=== PATIENT | male | born 2000 | race Caucasian/White ===

== ENCOUNTER 2023-12-07 23:16 | Emergency (ER) | payer OTHER, SELFPAY ==
[2023-12-07 23:21] VITALS: BP 140/76; PULSE 99; RESP 16; TEMP 37.2; BMI 21.3
--- NOTE | 2023-12-07 23:54 | ED_ITS ---
HPI - Abdominal Pain General Chief Complaint: Abdominal Pain Stated Complaint: ABD PAIN Time Seen by Provider: 12/07/23 23:24 Source: patient Mode of arrival: ambulance Limitations: no limitations History of Present Illness HPI narrative: Patient diagnosed with gallstones at [place] ED and has been receiving Nelson for pain. Has appointment with surgeon in [place] in 2 days. He was in [place] at his father's home and had increase in abdominal pain and called 911 - brought to [place] ED for evaluation. He received IV Fentanyl and IV Zofran in route. Related Data Home Medications Medication Instructions Recorded Confirmed ciprofloxacin HCl 500 mg tablet 500 mg PO Q12H 12/07/23 12/07/23 dextroamphetamine-amphetamine 15 7.5 mg PO BID 12/07/23 12/07/23 mg tablet metronidazole 500 mg tablet 500 mg PO Q12H 12/07/23 12/07/23 Previous Rx's Medication Instructions Recorded hyoscyamine sulfate 0.125 mg 0.125 mg PO Q6H PRN abdominal pain 12/08/23 sublingual tablet (Levsin/SL) #20 tabs ondansetron 4 mg disintegrating 4 mg PO Q6H PRN nausea and 12/08/23 tablet vomiting #20 tabs Allergies Allergy/AdvReac Type Severity Reaction Status Date / Time No Known Drug Allergies Allergy Verified 12/07/23 23:25 [facility] Social History Smoking status: Current every day smoker Exam Narrative Exam Narrative: Nurses notes and vital signs reviewed and patient is not hypoxic. afebrile General: Well-appearing and in no apparent distress. Skin: Warm, dry, no pallor noted. No rash. Eye: Pupils are equal, round and EOMI. No scleral icterus. Ears, Nose, Mouth, and Throat: Oral mucosa is moist Cardiovascular: borderline tachycardia. Respiratory: No accessory muscle use or respiratory distress. Lungs are clear to auscultation, no wheezing, rales or rhonchi Back: No CVA tenderness Musculoskeletal: normal ROM, no upper extremity edema/swelling GI: Abdomen is soft, non-distended. Normal bowel sounds. No masses appreciated. RLQ tenderness to palpation. No rebound, guarding, or rigidity noted. Neurological: A&O x4. No cranial nerve dysfunction observed. No truncal ataxia. Moves all extremities. Sensation intact. Psychiatric: Cooperative and interactive. Normal mood and affect. Constitutional Vital Signs, click to edit/add: Last Vital Signs Temp 97.9 F 12/08/23 01:35 Pulse 97 H 12/08/23 01:35 Resp 16 12/08/23 01:35 BP 140/70 12/08/23 01:35 Pulse Ox 98 12/08/23 01:35 O2 Del Method Room Air 12/08/23 01:35 Course Vital Signs Vital signs: Vital Signs Temperature 98.9 F 12/07/23 23:21 Pulse Rate 99 H 12/07/23 23:21 Respiratory Rate 16 12/07/23 23:21 Blood Pressure 140/76 12/07/23 23:21 Temperature 97.9 F 12/08/23 01:35 Pulse Rate 97 H 12/08/23 01:35 Respiratory Rate 16 12/08/23 01:35 Blood Pressure 140/70 12/08/23 01:35 Pulse Oximetry 98 12/08/23 01:35 Oxygen Delivery Method Room Air 12/08/23 01:35 MDM - Abdominal Pain MDM Narrative Medical decision making narrative: Peripheral IV was already established and route by EMS. He had received IV Zofran and IV fentanyl. His pain is decreased to 2 out of [address] scan of the abdomen pelvis were obtained with IV contrast. CBC, CMP, lipase - all negative except for K 2.9. CT scan does not reveal gallstones or biliary abnormality, colitis or bowel abno rmality, or other acutely worrisome findings. Appendix normal. Patient informed of results and discharged home. He can keep the appointment with the surgeon as scheduled. Prescribed Levsin and Zofran. Medical Records Attestation: I reviewed the patient's medical records. Medical records narrative: ED records from [facility] received and reviewed. The patient presented to the emergency department on November 14 November 17, 2023 complaining of low back pain which was attributed to him bending over to pick something up. It was believed to be a musculoskeletal etiology and he was treated accordingly. However he returned and on November 28, [address] scanning of the abdomen pelvis. CT did not reveal any gallstones. It did not reveal any renal or ureteral calculi or evidence of obstructive uropathy. He did however have mild wall thickening of ascending colon with some prominent perisplenic right lower quadrant mesenteric lymph nodes suggestive of inflammatory or infectious colitis. Dr. Johnson, the general surgeon was contacted and after reviewing the labs and CT result, it was decided the patient to be discharged home on Cipro and Flagyl, recommendation for clear liquid diet and then see Dr. Johnson in the office. Lab Data Attestation: I reviewed the patient's lab results. Labs: Lab Results 12/07/23 Range/Units 23:30 WBC 6.2 (4.0-11.0) 10^3/uL RBC 4.98 (4.70-6.10) 10^6/uL Hgb 14.3 (14.0-18.0) g/dL Hct 41.5 L (42.0-54.0) % MCV 83.3 (80.0-94.0) fL MCH 28.7 (25.9-34.0) pg MCHC 34.5 (29.9-35.2) g/dL RDW 12.2 (11.0-15.0) % Plt Count 276 (150-450) 10^3/uL MPV 10.2 (9.5-13.5) fL Neut % (Auto) 56.1 (43.0-75.0) % Lymph % (Auto) 30.5 (20.5-60.0) % Harper % (Auto) 7.6 (1.7-12.0) % Eos % (Auto) 4.9 (0.9-7.0) % Baso % (Auto) 0.6 (0.2-2.0) % Neut # (Auto) 3.5 (1.4-6.5) 10^3/uL Lymph # (Auto) 1.9 (1.2-3.8) 10^3/uL Harper # (Auto) 0.5 (0.3-0.8) 10^3/uL Eos # (Auto) 0.3 (0.0-0.7) 10^3/uL Baso # (Auto) 0.0 (0.0-0.1) 10^3/uL Abs Immat Gran (auto) 0.02 (0.00-0.03) 10^3/uL Imm/Tot Granulo (auto) 0.3 (0.0-0.5) % Sodium 139 (136-145) mmol/L Potassium 2.9 L* (3.5-5.1) mmol/L Chloride 103 (98-107) mmol/L Carbon Dioxide 23.3 (21.0-32.0) mmol/L Anion Gap 15.6 BUN 9.0 (7.0-18.0) mg/dL Creatinine 1.12 (0.70-1.30) mg/dL Est GFR ( Amer) >60 (>=60) Est GFR (Non-Af Amer) >60 (>=60) BUN/Creatinine Ratio 8.0 Glucose 101 (74-106) mg/dL Calcium 9.2 (8.5-10.1) mg/dL Total Bilirubin 0.7 (0.2-1.0) mg/dL AST 13 L (15-37) U/L ALT 15 L (16-63) U/L Alkaline Phosphatase 61 (46-116) U/L Total Protein 7.4 (6.4-8.2) g/dL Albumin 4.3 (3.4-5.0) g/dL Globulin 3.1 g/dL Albumin/Globulin Ratio 1.4 Lipase 16.0 (16.0-77.0) U/L Imaging Data CT scan - abdomen: Radiologist's impression: ITS Impressions Abdomen/Pelvis CT 12/08/23 00:00 IMPRESSION: 1. Heterogeneous appearance of both kidneys. Uncertain if this is due to technique and/or underlying small cysts or pyelonephritis. Correlate with urinalysis. 2. No hydronephrosis. No evidence of ureteral obstruction. Both ureters are images along the course and normal with left and right ureteral jets noted. 3. Normal appearance of bowel loops and appendix. Electronically authenticated by: SUNNY NULL Date: 12/08/2023 01:24 Discharge Plan Discharge Chief Complaint: Abdominal Pain Clinical Impression: Abdominal pain Patient Disposition: Home, Self-Care Time of Disposition Decision: 01:37 Prescriptions / Home Meds: New hyoscyamine sulfate [Levsin/SL] 0.125 mg tablet, sublingual 0.125 mg PO Q6H PRN (Reason: abdominal pain) Qty: 20 0RF ondansetron 4 mg tablet,disintegrating 4 mg PO Q6H PRN (Reason: nausea and vomiting) Qty: 20 0RF No Action ciprofloxacin HCl 500 mg tablet 500 mg PO Q12H dextroamphetamine-amphetamine 15 mg tablet 7.5 mg PO BID metronidazole 500 mg tablet 500 mg PO Q12H Instructions: Abdominal Pain (ED) Stand Alone Forms: Portal Instructions Referrals: GERARDO COLUNGA [Physician] - 1 week
--- NOTE | 2023-12-08 | CT_ITS ---
The [address] [address] Patient Name: LULÚ REAL MRN: [id number] date: 2000 Sex: M Assigned Patient Location: ER Current Patient Location: ER Accession/Order Number: [id number] Exam Date: 12/08/2023 00:20 Report Date: 12/08/2023 01:24 At the request of: RAMAN MORENO Procedure: CT abdomen pelvis w con CT OF THE ABDOMEN AND PELVIS WITH CONTRAST: 12/08/2023 12:20 AM EST CLINICAL HISTORY: Right lower quadrant abdominal pain. 23-year-old male. Acute epigastric pain. COMPARISONS: Report reviewed of CT abdomen and pelvis with and without from 09/04/2007. Images no longer available to review on archive. TECHNIQUE: Thin section axial CT images were obtained from the lung bases to the pubis symphysis. This CT exam was performed using one or more of the following dose reduction techniques: Automated exposure control, adjustment of the mA and/or kV according to patient size, or use of iterative reconstruction technique. Thin section coronal and sagittal images were reconstructed from the axial data set. All images were reviewed and interpreted. CONTRAST: Intravenous contrast was administered. Type and amount is documented at the local institution. FINDINGS: LUNG BASES: No consolidation or pleural fluid. LIVER: Mild to moderate diffuse hepatic steatosis. GALLBLADDER: Normal. BILIARY TREE: No ductal dilatation. PANCREAS: Normal. SPLEEN: Normal. ADRENALS: Normal. KIDNEYS: Heterogeneous enhancement of kidneys which may be related to slight delayed imaging. There is contrast within both intrarenal collecting systems and ureters with no hydronephrosis. Could be small cyst within the anterior midpole left kidney. There may be other scattered small cyst versus pyelonephritis causing heterogeneous appearance. Correlate with urinalysis. URINARY BLADDER: Grossly unremarkable. PELVIC STRUCTURES: Unremarkable. BOWEL: No evidence of obstruction, gross mass, or inflammatory change. There is no significant diverticulosis. There is no evidence of diverticulitis. APPENDIX: No active disease with normal appendix. LYMPH NODES: No pathologically enlarged lymph nodes identified. PERITONEUM: No intraperitoneal free air. No free intraperitoneal fluid. MESENTERY: Unremarkable. RETROPERITONEUM: The retroperitoneum is unremarkable. AORTA: Normal in caliber. BODY WALL: No body wall mass. OSSEOUS STRUCTURES: Normal osseous structures and joints for age. CT/CT abdomen pelvis w con IMPRESSION: 1. Heterogeneous appearance of both kidneys. Uncertain if this is due to technique and/or underlying small cysts or pyelonephritis. Correlate with urinalysis. 2. No hydronephrosis. No evidence of ureteral obstruction. Both ureters are images along the course and normal with left and right ureteral jets noted. 3. Normal appearance of bowel loops and appendix. Electronically authenticated by: SUNNY NULL Date: 12/08/2023 01:24
[2023-12-08] MEDS: 0.9 % SODIUM CHLORIDE 1,000 ML 999 ML IV (00:08)
[2023-12-08 00:26] LABS: Basophils Percent Auto 0.6 % (0.2-2.0); Eosinophils Absolute Auto 0.3 10^3/uL (0.0-0.7); Eosinophils Percent Auto 4.9 % (0.9-7.0); Hematocrit 41.5 % (42.0-54.0); Hemoglobin 14.3 g/dL (14.0-18.0); Immature Granulocytes Abs Auto 0.02 10^3/uL (0.00-0.03); Immature Granulocytes Pct Auto 0.3 % (0.0-0.5); Lymphocytes Absolute Auto 1.9 10^3/uL (1.2-3.8); Lymphocytes Percent Auto 30.5 % (20.5-60.0); Mean Corpuscular HGB Conc 34.5 g/dL (29.9-35.2); Mean Corpuscular Hemoglobin 28.7 pg (25.9-34.0); Mean Corpuscular Volume 83.3 fL (80.0-94.0); Mean Platelet Volume 10.2 fL (9.5-13.5); Monocytes Absolute Auto 0.5 10^3/uL (0.3-0.8); Monocytes Percent Auto 7.6 % (1.7-12.0); Neutrophils Absolute Auto 3.5 10^3/uL (1.4-6.5); Neutrophils Percent Auto 56.1 % (43.0-75.0); Platelet Count 276 10^3/uL (150-450); Red Blood Count 4.98 10^6/uL (4.70-6.10); Red Cell Distribution Width 12.2 % (11.0-15.0); White Blood Count 6.2 10^3/uL (4.0-11.0)
[2023-12-08 00:49] LABS: Alanine Aminotransferase 15 U/L (16-63); Albumin Globulin Ratio 1.4; Albumin Level 4.3 g/dL (3.4-5.0); Alkaline Phosphatase 61 U/L (46-116); Anion Gap 15.6; Aspartate Amino Transferase 13 U/L (15-37); Bilirubin Total 0.7 mg/dL (0.2-1.0); Calcium 9.2 mg/dL (8.5-10.1); Carbon Dioxide 23.3 mmol/L (21.0-32.0); Chloride 103 mmol/L (98-107); Estimated GFR (African America >60 (>=60); Estimated GFR (Non-African Ame >60 (>=60); Globulin 3.1 g/dL; Glucose 101 mg/dL (74-106); Sodium 139 mmol/L (136-145); Total Protein 7.4 g/dL (6.4-8.2)
[2023-12-08 00:52] LABS: Potassium 2.9 mmol/L (3.5-5.1)
[2023-12-08] MEDS: POTASSIUM CHLORIDE 10 MEQ ER TABLET 40 MEQ PO (00:58)
[2023-12-08 01:35] VITALS: BP 140/70; PULSE 97; RESP 16; TEMP 36.6; O2SAT 98
== END 2023-12-08 01:57 | disposition home or self-care (01) ==
PROVIDERS: Emergency Provider Emergency Medicine
DX: R10.9 Unspecified abdominal pain (principal); F17.200 Nicotine dependence, unspecified, uncomplicated
CPT/HCPCS: 36415; 74177; 80053; 83690; 85025; 99285; Q9967

== ENCOUNTER 2023-12-12 11:10 | Emergency (ER) | payer OTHER, SELFPAY ==
[2023-12-12 11:16] VITALS: BP 130/90; PULSE 101; RESP 16; TEMP 36.2; O2SAT 99; BMI 19.9
--- OUTSIDE RECORDS SUMMARY | 2023-12-12 11:17 | XMS_ITS | CCD ---
Author Name Unknown Address [address] [place] [address] Organization [facility] Care Team Providers Care Supervisor [employer] Name Role Phone LAM LUL L Unavailable Unavailable LAM, LUL L Unavailable Unavailable RUBIO RIVERA Unavailable Unavailable VIRGIL, DR ROMAN Shanks Attending Unavailosman HERMAN, DR ROMAN Shanks Consulting Unavailosman HERMAN, DR ROMAN Shanks Admitting Unavailosman COLUNGA, DR CARRILLO Primary Care Unavailable NOEL WONG Consulting Unavailable BELLE PETER Consulting Unavailable PAY, DR ANTON Attending Unavailable CRISTINE, DR CARRILLO Primary Care Unavailable TIFFANIE, DR CAMARGO Consulting Unavailable PAY, DR ANTON Admitting Unavailable DUONG, DR GRAJEDA Consulting Unavailable BELLE PETER Consulting Unavailable Lauren Greene Unavailable NO PCP, NO PCP Primary Care Unavailable GIOVANNY HERNANDEZ Attending Unavailable NO PCP, NO PCP Primary Care Unavailable JEREMIAH DAVIES Attending Unavailable NO PCP, NO PCP Primary Care Unavailable CATALINO OVERTON Attending Unavailab CATALINO Chase Attending Unavailab CATALINO Chase Referring Unavailab le NO PCP, NO PCP Primary Care Unavailable CATALINO OVERTON Attending Unavailab CATALINO Chase Referring Unavailab le NO PCP, NO PCP Primary Care Unavailable Allergies Allergy Classification Reported Allergen(s) Allergy Type Date of Onset Reaction(s) Facility (1 source) Cat/Feline Product Derivatives Drug allergy (disorder) [facility] Medications Current Medications Medication Drug Class(es) Dates Sig (Normalized) Sig (Original) Albuterol (2 sources) beta2-Adrenergic Agonist Albuterol Sulfate Active Faviola Allergy (2 sources) Faviola Allergy Active ibuprofen 800 mg oral tablet (2 sources) Nonsteroidal Anti-inflammatory Drug take 1 tablet by mouth every eight hours at mealtime as needed Ibuprofen 800 MG 1 tablet with food or milk as needed Orally every 8 hrs Active Problems Active Problems Problem Classification Problem Date Documented Date Episodic/Chronic E Codes: Natural/environment (1 source) Other and unspecified overexertion or strenuous movements or postures, initial encounter; Translations: [OTH AND UNS OVREXRT/STRN MVMT/POS INT] Onset: 08-18-2022 Episodic E Codes: Struck by; against (1 source) Striking against or struck by other objects, initial encounter; Translations: [STRIKING AGNST/STRUCK OTH OBJ INIT] Onset: 07-10-2022 Episodic Noninfectious gastroenteritis (1 source) Noninfective gastroenteritis and colitis, unspecified; Translations: [Noninfective gastroenteritis and colitis, unspecified] Onset: 11-28-2023 Episodic Other connective tissue disease (3 sources) Pain in right foot; Translations: [PAIN IN RIGHT FOOT] Onset: 06-30-2022 Episodic Other non-traumatic joint disorders (6 sources) Pain in right ankle and joints of right foot; Translations: [PAIN IN RIGHT ANKLE] Onset: 08-15-2022 Episodic Spondylosis; intervertebral disc disorders; other back problems (3 sources) Muscle spasm of back; Translations: [Backache] Onset: 11-14-2023 Episodic Sprains and strains (4 sources) Sprain of unspecified ligament of right ankle, initial encounter; Translations: [Strain of muscle, fascia and tendon of lower back, subsequent encounter] Onset: 08-18-2022 Episodic Superficial injury; contusion (1 source) Contusion of right foot, initial encounter; Translations: [CONTUSION RIGHT FOOT INITIAL ENC] Onset: 07-10-2022 Episodic Past or Other Problems Problem Classification Problem Date Documented Da te Episodic/Chronic Allergic reactions (1 source) Unspecified contact dermatitis, unspecified cause; Translations: [Unspecified contact dermatitis, unspecified cause] Onset: 04-29-2017 Episodic Results Test Name Value Interpretation Reference Range Facil ity CBC AND AUTO DIFFon 11-28-19 ABSOLUTE BASOPHIL 0.0 X10E9/L Normal 0.0-0.2 [facility] Comment on above: Performed By: #### C EMILY [facility], 1986-02 #### [facility] ([id number]) [address] [place] [address] 12033 ABSOLUTE NEUTROPHIL 8.8 X10E9/L High 1.5-6.6 [facility] Comment on above: Performed By: #### Naomi DIAZ [facility], 1986-02 #### [facility] ([id number]) [address] [place] [address] 95649 Basophils/100 WBC (Bld) 0.3 % Normal [facility] Comment on above: Performed By: #### Naomi DIAZ [facility], 1986-02 #### [facility] ([id number]) [address] [place] [address] 53956 Eosinophils (Bld) [#/Vol] 0.2 10*3/uL Normal 0.0-0.4 [facility] Comment on above: Performed By: #### Naomi DIAZ [facility], 1986-02 #### [facility] ([id number]) [address] [place] [address] 27693 Eosinophils/100 WBC (Bld) 1.6 % Normal [facility] Comment on above: Performed By: #### Naomi DIAZ [facility], 1986-02 #### [facility] ([id number]) [address] [place] [address] 65877 Erythrocyte distribution width (RBC) [Ratio] 13.7 % Normal 11.5-15.0 [facility] Comment on above: Performed By: #### Naomi DIAZ [facility], 1986-02 #### [facility] ([id number]) [address] [place] [address] 18565 Hematocrit (Bld) [Volume fraction] 45.1 % Normal 39-49 [facility] Comment on above: Performed By: #### Naomi DIAZ [facility], 1986-02 #### [facility] ([id number]) [address] [place] [address] 98321 Hemoglobin (Bld) [Mass/Vol] 15.6 g/dL Normal 13.0-17.0 [facility] Comment on above: Performed By: #### Naomi DIAZ [facility], 1986-02 #### [facility] ([id number]) [address] [place] [address] 83823 Lymphocytes (Bld) [#/Vol] 1.4 10*3/uL Normal 1.0-3.5 [facility] Comment on above: Performed By: #### Naomi DIAZ [facility], 1986-02 #### [facility] ([id number]) [address] [place] [address] 03955 Lymphocytes/100 WBC (Bld) 12.4 % Normal [facility] Comment on above: Performed By: #### Naomi DIAZ [facility], 1986-02 #### [facility] ([id number]) [address] [place] [address] 96126 MCH (RBC) [Entitic mass] 29.3 pg Normal 27-34 [facility] Comment on above: Performed By: #### Naomi DIAZ [facility], 1986-02 #### [facility] ([id number]) [address] [place] [address] 64078 MCHC (RBC) [Mass/Vol] 34.5 g/dL Normal 32-36 [facility] Comment on above: Performed By: #### Naomi DIAZ [facility], 1986-02 #### [facility] ([id number]) [address] [place] [address] 85207 MCV (RBC) [Entitic vol] 85 fL Normal 80-100 [facility] Comment on above: Performed By: #### Naomi DIAZ [facility], 1986-02 #### [facility] ([id number]) [address] [place] [address] 37994 Monocytes (Bld) [#/Vol] 0.9 10*3/uL Normal 0-0.9 [facility] Comment on above: Performed By: #### Naomi DIAZ [facility], 1986[facility]02 #### [facility] ([id number]) [address] [place] [address] 26366 Monocytes/100 WBC (Bld) 7.6 % Normal [facility] Comment on above: Performed By: #### Naomi DIAZ [facility], 1986[facility]02 #### [facility] ([id number]) [address] [place] [address] 11977 Neutrophils/100 WBC (Bld) 78.1 % Normal [facility] Comment on above: Performed By: #### Naomi DIAZ [facility], 1986-[facility] #### [facility] ([id number]) [address] [place] [address] 08998 Platelet mean volume (Bld) [Entitic vol] 8.2 fL Normal 7-12 [facility] Comment on above: Performed By: #### Naomi DIAZ [facility], 1986-[facility] #### [facility] ([id number]) [address] [place] [address] 63604 Platelets (Bld) [#/Vol] 326 10*3/uL Normal 150-450 [facility] Comment on above: Performed By: #### Naomi DIAZ [facility], 1986-[facility] #### [facility] ([id number]) [address] [place] [address] 74199 RBC COUNT 5.31 X10E12/L Normal 4.10-5.70 [facility] Comment on above: Performed By: #### Naomi DIAZ [facility], 1986-02 #### [facility] ([id number]) [address] [place] [address] 14926 WBC (Bld) [#/Vol] 11.3 10*3/uL High 4.0-11.0 [facility] Comment on above: Performed By: #### Naomi DIAZ [facility], 1986-02 #### [facility] ([id number]) [address] [place] [address] 98244 COMPREHENSIVE METABOLIC PANE Alex 11-28-2023 Albumin [Mass/Vol] 5.0 g/dL Normal 3.2-5.3 [facility] Comment on above: Performed By: #### C [facility]ILY [facility], 1986-02 #### [facility] ([id number]) [address] [place] [address] 25767 ALP [Catalytic activity/Vol] 71 U/L Normal 39-130 [facility] Comment on above: Performed By: #### Naomi DIAZ [facility], 1986-02 #### [facility] ([id number]) [address] [place] [address] 52659 ALT [Catalytic activity/Vol] 13 U/L Normal 0-40 [facility] Comment on above: Performed By: #### Naomi DIAZ [facility], 1986-[facility] #### [facility] ([id number]) [address] [place] [address] 56862 Anion gap [Moles/Vol] 8 mmol/L Normal 5-15 [facility] Comment on above: Performed By: #### Naomi DIAZ [facility], 1986-[facility] #### [facility] ([id number]) [address] [place] [address] 73591 AST [Catalytic activity/Vol] 19 U/L Normal 0-41 [facility] Comment on above: Performed By: #### C [facility], 1986-[facility] #### [facility] ([id number]) [address] [place] [address] 78080 Bilirubin [Mass/Vol] 0.9 mg/dL Normal 0.3-1.2 [facility] Comment on above: Performed By: #### Naomi DIAZ [facility], 1986-02 #### [facility] ([id number]) [address] [place] [address] 04638 Calcium [Mass/Vol] 9.6 mg/dL Normal 8.5-10.5 [facility] Comment on above: Performed By: #### C [facility], 1986-[facility] #### [facility] ([id number]) [address] [place] [address] 72289 Chloride [Moles/Vol] 101 mmol/L Normal 98-109 [facility] Comment on above: Performed By: #### Naomi DIAZ [facility], 1986-[facility] #### [facility] ([id number]) [address] [place] [address] 31145 CO2 [Moles/Vol] 27 mmol/L Normal 22-32 [facility] Comment on above: Performed By: #### Naomi DIAZ [facility], 1986-[facility] #### [facility] ([id number]) [address] [place] [address] 06548 Creatinine [Mass/Vol] 1.15 mg/dL Normal 0.70-1.20 [facility] Comment on above: Result Comment: METH OD TRACEABLE TO IDMS STANDARD Performed By: #### Naomi DIAZ [facility], 1986-02 #### [facility] ([id number]) [address] [place] [address] 56918 eGFR (CKD-EPI) NON-RACE DEPENDENT >90 Normal >59 [facility] Comment on above: Result Comment: Reported eGFR is based on the CKD-EPI 2020 equation that does not use a race coefficient. Performed By: #### C [facility], 1986-02 #### [facility] ([id number]) [address] [place] [address] 00659 Glucose [Mass/Vol] 100 mg/dL High 65-99 [facility] Comment on above: Performed By: #### Naomi DIAZ [facility], 1986-02 #### [facility] ([id number]) [address] [place] [address] 49979 Potassium [Moles/Vol] 4.3 mmol/L Normal 3.5-5.0 [facility] Comment on above: Performed By: #### C [facility], 1986[facility] #### [facility] ([id number]) [address] [place] [address] 51834 Protein [Mass/Vol] 8.4 g/dL High 6.0-8.0 [facility] Comment on above: Performed By: #### Naomi DIAZ [facility], 1986-02 #### [facility] ([id number]) [address] [place] [address] 12228 Sodium [Moles/Vol] 136 mmol/L Normal 134-146 [facility] Comment on above: Performed By: #### Naomi DIAZ [facility], 1986-[facility] #### [facility] ([id number]) [address] [place] [address] 12512 Urea nitrogen [Mass/Vol] 21 mg/dL Normal 5-23 [facility] Comment on above: Performed By: #### Naomi DIAZ [facility], 1986-[facility] #### [facility] ([id number]) [address] [place] [address] 47515 CRP [Mass/Vol]on 11-28-2023 C REACTIVE PROTEIN 0.6 mg/dL Normal 0.000-0.744 [facility] Comment on above: Performed By: #### Naomi DIAZ [facility], 1986-[facility] #### [facility] ([id number]) [address] [place] [address] ABDOMEN AND PELVIS WO CON Ton 11-28-2023 CT ABDOMEN AND PELVIS WO CONT CT ABDOMEN AND PELVIS WO CONT CT ABDOMEN AND PELVIS WO CONT CLINICAL HISTORY: Abdominal pain radiating to the right flank COMPARISON: 09/03/2007 TECHNIQUE: * CT of the abdomen and pelvis was performed without intravenous contrast. Coronal and sagittal reformatted images were generated and reviewed. Automated exposure control was utilized. * All CT scans at this facility use dose modulation, iterative reconstruction, and/or weight based dosing when appropriate to reduce radiation dose to as low as reasonably achievable. FINDINGS: Evaluation of the solid viscera and vascular structures is compromised without the use of IV contrast. Visualized portions of lung parenchyma appear unremarkable. No pericardial or pleural effusions. No intra-abdominal free air or free fluid. The liver, gallbladder, spleen, pancreas, and adrenal glands appear unremarkable. No renal/ureteral calculi. Nonspecific mildly increased attenuation of the renal pyramids bilaterally. No evidence of obstructive uropathy. No pelvic free fluid. The prostate appears nonenlarged. Small bowel is nondilated. Mildly prominent wall of the descending colon with prominent right lower quadrant pericolonic lymph nodes which could be seen with an inflammatory or infectious colitis. Clinical correlation is recommended. No abdominal or pelvic lymphadenopathy. Nonaneurysmal abdominal aorta. The IVC is right-sided. Multilevel degenerative changes of the visualized thoracolumbar spine. 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 There is a 1.6 cm sclerotic lesion right iliac bone, likely enostosis. IMPRESSION: * No renal/ureteral calculi or evidence of obstructive uropathy. * Nonspecific mildly increased attenuation of the renal pelvis bilaterally, which can be seen in the setting of dehydration or increased caffeine intake. Recommend clinical correlation. * There is mild wall thickening of ascending colon with some prominent perisplenic right lower quadrant mesenteric lymph nodes which could be seen with inflammatory or infectious colitis. Clinical correlation is recommended. Approved by Resident: Stephen Varela MD on 11/28/2023 1:45 PM ICatalino MD have personally reviewed the image(s) and agree with and/or edited the report Finalized by Catalino Knapp MD on 11/28/2023 1:58 PM Normal [facility] URN MACROSCOPIC NURon 2023 BILIRUBIN ANITRA Negative Normal NEG [facility] Comment on above: Performed By: #### N UM #### [facility] ([id number]) [address] [place] [address] 39154 BLOOD/HGB ANITRA MODERATE Abnormal NEG [facility] Comment on above: Performed By: #### N UM #### [facility] ([id number]) [address] [place] [address] 69427 GLUCOSE ANITRA Negative Normal NEG [facility] Comment on above: Performed By: #### N UM #### [facility] ([id number]) [address] [place] [address] 51684 KETONES ANITRA Negative Normal NEG [facility] Comment on above: Performed By: #### N UM #### [facility] ([id number]) [address] [place] [address] 38073 LEUKOCYTE ESTERASE ANITRA Negative Normal NEG [facility] Comment on above: Performed By: #### N UM #### [facility] ([id number]) [address] [place] [address] 08286 NITRITE ANITRA Negative Normal NEG [facility] Comment on above: Performed By: #### N UM #### [facility] ([id number]) [address] [place] [address] 50474 PH ANITRA 6.0 Normal 5.0-8.5 [facility] Comment on above: Performed By: #### N UM #### [facility] ([id number]) [address] [place] [address] 75800 PROTEIN ANITRA Negative Normal NEG [facility] Comment on above: Performed By: #### N UM #### [facility] ([id number]) [address] [place] [address] 34950 SPECIFIC GRAVITY ANITRA 1.025 Normal 1.003-1.035 [facility] Comment on above: Performed By: #### N UM #### [facility] ([id number]) [address] [place] [address] 01585 UROBILINOGEN ANITRA 0.2 eu/dL Normal <1.1 [facility] Comment on above: Performed By: #### N UM #### [facility] ([id number]) [address] [place] [address] 42788 XR SPINE LUMBAR 2 OR 3 VWSon 11-28-2023 XR SPINE LUMBAR 2 OR 3 VWS XR SPINE LUMBAR 2 OR 3 VWS *ADDENDUM*Upon comparison to prior CT of the abdomen and pelvis from 09/03/2007. 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 Finalized by Catalino Valentino on 11/28/2023 12:08 PM Normal [facility] XR ANKLE RT MIN 3 VIEWSon XR ANKLE RT MIN 3 VIEWS IMAGES REVIEWED: XR ANKLE RT MIN 3 VIEWS COMPARISON: 06/30/2022. CLINICAL INDICATION: Pain FINDINGS/IMPRESSION: 1. No evidence of acute osseous abnormality of the right ankle. 2. Prominent lateral ankle soft tissue swelling. Electronically authenticated by: BELLE PETER Date: 2022-08-15 20:02 Normal [facility] XR FOOT RT MIN 3 VIEWSon XR FOOT RT MIN 3 VIEWS IMAGES REVIEWED: XR FOOT RT MIN 3 VIEWS COMPARISON: None available. CLINICAL INDICATION: Injury, pain. FINDINGS/IMPRESSION: No evidence of acute osseous abnormality of the right foot. Electronically authenticated by: BELLE PETER Date: 2022-06-30 20:09 Normal [facility] ED Provider Noteon 7 HIM IP Note OR Folder Seamer Normal [facility] Encounters Encounter Date Encounter Type Care Provider Facility Start: 11-28-2023 End: 11-29-2023 Emergency department patient visit CATALINO [facility] Start: 11-28-2023 End: 11-29-2023 Emergency department patient visit CATALINO [facility] Start: 11-28-2023 End: 11-28-2023 Emergency department patient visit NO PCP NO PCP [facility] Start: 11-17-2023 End: 11-17-2023 Emergency department patient visit NO PCP NO PCP [facility] Start: 11-14-2023 End: 11-14-2023 Emergency department patient visit NO PCP NO PCP [facility] Start: 09-02-2022 End: 09-02-2022 ambulatory Lauren Greene Other [facility] Other Start: 09-02-2022 Office outpatient visit 15 minutes Lauren Greene [facility] Start: 08-21-2022 End: 08-21-2022 ambulatory Lauren Ramona Other [facility] Other Start: 08-21-2022 Office outpatient ne w 45 minutes Lauren Greene [facility] Start: 08-15-2022 End: 08-15-[address] DESEAN PAZ Facility:[facility] Start: 06-30-2022 End: 06-30-[address] ROMAN HERMAN Facility:[facility] Start: 04-29-2017 End: 04-29-2017 Emergency department patient visit [facility] Payers Date Payer Category Payer Unknown [id number] 2.16.84 [id number] 2002 Unknown [id number] 2.16.84 [id number] 2002 Unknown [id number] 2.16.8 [id number] 2002 Unknown [id number] 2.16.8 [id number] 2002 Unknown [id number] 2.16.8 [id number] 2002 Unknown [id number] 2.16.8 [id number] 2002 Unknown [id number] 2.16.8 [id number] 1959 Unknown [id number] Social History Date Type Detail Facility Sex Assigned At [facility] Other Evaluation note 09-02-2022 Note Date & Type Note Facility 09-02-2022 Evaluation note Encounter Date Diagnosis Assessment Notes Aug, Acute right ankle pain (ICD-10 - M25.571) 15 Nov, 2022 Sprain of right ankle, unspecified ligament, initial encounter (ICD-10 - S93.401A) Patient instructed to start working on motion out of the CAM walker boot. He may also transition into a regular shoe. He may return to work tomorrow. [facility] Other Evaluation note 08-21-2022 Note Date & Type Note Facility 08-21-2022 Evaluation note Encounter Date Diagnosis Assessment Notes Aug, Acute right ankle pain (ICD-10 - M25.571) Aug, Sprain of right ankle, unspecified ligament, initial encounter (ICD-10 - S93.401A) X-rays were reviewed with the patient today, along with a physical exam. Today, we will give the patient a short cam walking boot. We will have him continue to take ibuprofen as needed, ice, evaluate, and exercise the ankle/foot as much as possible. We will f/u with the patient in 2 weeks. [facility] Other History general Narrative - Reported Note Date & Type Note Facility History general Narrative - Reported Type Medical History allergies Surgical History skin graft [facility] Other Summary Purpose Family History No Family History Records FoundNo Family History Records FoundNo Family History Records Found Advance Directives No Advanced Directives Records FoundNo Advanced Directives Records FoundNo Advanced Directives Records Found Additional Source Comments (unrecognized sect ion and content) No Status Records FoundNo Status Records FoundNo Status Records Found INFORMATION SOURCE (unrecogn ized section and content) DATE CREATED AUTHOR 04/14/2018 Martha Mahmood [facility] DATE CREATED AUTHOR AUTHOR'S ORGANIZ ATION 08/18/2022 [facility] DATE CREATED AUTHOR AUTHOR'S ORGANIZ ATION 11/30/2023 [facility] REASON FOR VISIT (unrecogniz ed section and content) Right Ankle PainRecheck Righ t Ankle FOR RECORDS PERTAINING TO PATIENTS WHO ARE OR HAVE BEEN ENROLLED IN A CHEMICAL DEPENDENCY/SUBSTANCEABUSE PROGRAM, SOME INFORMATION MAY BE OMITTED. This clinical summary was aggregated from multiple sources. Caution should be exercised in using it in the provision of clinical care. This summary normalizes information from multiple sources, and as a consequence, information in this document may materially change the coding, format and clinical context of patient data. In addition, data may be omitted in some cases. CLINICAL DECISIONS SHOULD BE BASED ON THE PRIMARY CLINICAL RECORDS. [facility] [employer] [facility] provides no warranty or guarantee of the accuracy or completeness of information in this document.
[2023-12-12 12:00] LABS: Basophils Percent Auto 0.7 % (0.2-2.0); Eosinophils Absolute Auto 0.2 10^3/uL (0.0-0.7); Hematocrit 43.7 % (42.0-54.0); Hemoglobin 15.1 g/dL (14.0-18.0); Immature Granulocytes Abs Auto 0.01 10^3/uL (0.00-0.03); Immature Granulocytes Pct Auto 0.2 % (0.0-0.5); Lymphocytes Percent Auto 23.2 % (20.5-60.0); Mean Corpuscular HGB Conc 34.6 g/dL (29.9-35.2); Mean Corpuscular Hemoglobin 28.9 pg (25.9-34.0); Mean Corpuscular Volume 83.6 fL (80.0-94.0); Mean Platelet Volume 9.7 fL (9.5-13.5); Monocytes Absolute Auto 0.3 10^3/uL (0.3-0.8); Monocytes Percent Auto 7.9 % (1.7-12.0); Neutrophils Absolute Auto 2.6 10^3/uL (1.4-6.5); Platelet Count 259 10^3/uL (150-450); Red Blood Count 5.23 10^6/uL (4.70-6.10); Red Cell Distribution Width 12.4 % (11.0-15.0); White Blood Count 4.2 10^3/uL (4.0-11.0)
[2023-12-12 12:31] LABS: Alanine Aminotransferase 17 U/L (16-63); Albumin Globulin Ratio 1.3; Albumin Level 4.3 g/dL (3.4-5.0); Alkaline Phosphatase 57 U/L (46-116); Aspartate Amino Transferase 12 U/L (15-37); BUN Creatinine Ratio 9.4; Bilirubin Total 0.9 mg/dL (0.2-1.0); Calcium 9.4 mg/dL (8.5-10.1); Carbon Dioxide 22.6 mmol/L (21.0-32.0); Chloride 103 mmol/L (98-107); Estimated GFR (African America >60 (>=60); Estimated GFR (Non-African Ame >60 (>=60); Globulin 3.2 g/dL; Glucose 91 mg/dL (74-106); Potassium 3.6 mmol/L (3.5-5.1); Sodium 141 mmol/L (136-145); Total Protein 7.5 g/dL (6.4-8.2)
[2023-12-12] MEDS: METHYLPREDNISOLONE SOD SUCC PF 125 MG/2 ML VIAL 250 MG IVP (12:45)
--- NOTE | 2023-12-12 12:48 | ED_ITS ---
HPI - Abdominal Pain General Chief Complaint: Abdominal Pain Stated Complaint: PAIN ALL OVER Time Seen by Provider: 12/12/23 11:21 Source: patient Mode of arrival: walk-in Limitations: no limitations History of Present Illness HPI narrative: This patient is here with his father complaining of continuing ongoing pain. I reviewed his previous ER records from this ER, the previous ER physician here also reviewed his records from [place] including his lab and CT findings. Despite taking Cipro and Flagyl his symptoms have not gotten any better. His primary complaint seems to be diffuse abdominal pain loose bowel movements. He is lost approximately 20 pounds in 1 month according to his father. He was vies to follow-up with a surgeon in [facility], it sounds like they reached out but then they chose to see a deputy grand jury instead. The deputy grand jury cannot and has not seen them, will not be able to see them for another month so he has not had any follow-up because he chose to see the deputy grand jury instead of the surgeon. He has not had any travel history. There is no suggestion of enteric pathogens or bad water intake. In fact he submitted a stool specimen 2 days ago for PCR of the stool and it was completely normal and I did review his those results myself. He has never seen blood in his stool. Of interest several family members on his mother side have inflammatory bowel d isease. There is no strong cancer history although the father suggested that there is some on his family as well. He has not had any vomiting. He denies alcohol intake. He has no history of liver disease. He has had 2 CAT scans previously nothing suggestive of gallbladder disease and his pain is not in the right upper quadrant. At no time is he run a fever. Related Data Home Medications Medication Instructions Recorded Confirmed dextroamphetamine-amphetamine 15 7.5 mg PO BID 12/07/23 12/07/23 mg tablet Previous Rx's Medication Instructions Recorded ondansetron 4 mg disintegrating 4 mg PO Q6H PRN nausea and 12/08/23 tablet vomiting #20 tabs Allergies Allergy/AdvReac Type Severity Reaction Status Date / Time No Known Drug Allergies Allergy Verified 12/12/23 11:16 PFS PFS Social History Smoking status: Current every day smoker Exam Narrative Exam Narrative: Awake alert does not appear ill appears thin slightly pale weight is 59.4 kg. Vital signs are stable with mild increase in pulse however he is afebrile. HEENT shows no pallor or conjunctival icterus or conjunctivitis. Abdomen is flat soft supple no surgical incisions. Normal bowel sounds. No guarding rebound rigidity or peritoneal findings. No hepatomegaly. No tenderness in McBurney's point. Hernandez sign is negative. His back has no lesions rash or exanthem. Skin slightly pale. No petechiae purpura rash or exanthem. Cognition and mentation are normal he seems generally and sincerely worried and concerned about his health. Constitutional Vital Signs, click to edit/add: Last Vital Signs Temp 97.1 F L 12/12/23 11:16 Pulse 101 H 12/12/23 11:16 Resp 16 12/12/23 11:16 BP 130/90 12/12/23 11:16 Pulse Ox 99 12/12/23 11:16 O2 Del Method Room Air 12/12/23 11:16 Course Vital Signs Vital signs: Vital Signs Temperature 97.1 F L 12/12/23 11:16 Pulse Rate 101 H 12/12/23 11:16 Respiratory Rate 16 12/12/23 11:16 Blood Pressure 130/90 12/12/23 11:16 Pulse Oximetry 99 12/12/23 11:16 Oxygen Delivery Method Room Air 12/12/23 11:16 Temperature 97.1 F L 12/12/23 11:16 Pulse Rate 101 H 12/12/23 11:16 Respiratory Rate 16 12/12/23 11:16 Blood Pressure 130/90 12/12/23 11:16 Pulse Oximetry 99 12/12/23 11:16 Oxygen Delivery Method Room Air 12/12/23 11:16 MDM - Abdominal Pain MDM Narrative Medical decision making narrative: Patient's laboratory tests are essentially normal with normal CBC hemoglobin kidney function and liver function tests are essentially normal. In totality, with numerous CTs laboratory testing all being normal and a strong family history of inflammatory bowel disease it clearly will be prudent for him to get endoscopy. He initiated that process but now it has been delayed as noted above. He can follow-up with our surgeon on-call or refollow-up with the surgeon in [place]. He will be given a copy of all his lab test. Empirically I am going to treat him with a burst of steroids to see if he has a clinical improvement. Lab Data Labs: Lab Results 12/12/23 Range/Units 11:52 WBC 4.2 (4.0-11.0) 10^3/uL RBC 5.23 (4.70-6.10) 10^6/uL Hgb 15.1 (14.0-18.0) g/dL Hct 43.7 (42.0-54.0) % MCV 83.6 (80.0-94.0) fL MCH 28.9 (25.9-34.0) pg MCHC 34.6 (29.9-35.2) g/dL RDW 12.4 (11.0-15.0) % Plt Count 259 (150-450) 10^3/uL MPV 9.7 (9.5-13.5) fL Neut % (Auto) 63.0 (43.0-75.0) % Lymph % (Auto) 23.2 (20.5-60.0) % [place] % (Auto) 7.9 (1.7-12.0) % Eos % (Auto) 5.0 (0.9-7.0) % Baso % (Auto) 0.7 (0.2-2.0) % Neut # (Auto) 2.6 (1.4-6.5) 10^3/uL Lymph # (Auto) 1.0 L (1.2-3.8) 10^3/uL [place] # (Auto) 0.3 (0.3-0.8) 10^3/uL Eos # (Auto) 0.2 (0.0-0.7) 10^3/uL Baso # (Auto) 0.0 (0.0-0.1) 10^3/uL Abs Immat Gran (auto) 0.01 (0.00-0.03) 10^3/uL Imm/Tot Granulo (auto) 0.2 (0.0-0.5) % Sodium 141 (136-145) mmol/L Potassium 3.6 (3.5-5.1) mmol/L Chloride 103 (98-107) mmol/L Carbon Dioxide 22.6 (21.0-32.0) mmol/L Anion Gap 19.0 BUN 12.0 (7.0-18.0) mg/dL Creatinine 1.27 (0.70-1.30) mg/dL Est GFR ( Amer) >60 (>=60) Est GFR (Non-Af Amer) >60 (>=60) BUN/Creatinine Ratio 9.4 Glucose 91 (74-106) mg/dL Lactate 1.0 (0.4-2.0) mmol/L Calcium 9.4 (8.5-10.1) mg/dL Total Bilirubin 0.9 (0.2-1.0) mg/dL AST 12 L (15-37) U/L ALT 17 (16-63) U/L Alkaline Phosphatase 57 (46-116) U/L Total Protein 7.5 (6.4-8.2) g/dL Albumin 4.3 (3.4-5.0) g/dL Globulin 3.2 g/dL Albumin/Globulin Ratio 1.3 Lipase 13.0 L (16.0-77.0) U/L Discharge Plan Discharge Chief Complaint: Abdominal Pain Clinical Impression: Abdominal pain Patient Disposition: Home, Self-Care Time of Disposition Decision: 12:52 Prescriptions / Home Meds: No Action dextroamphetamine-amphetamine 15 mg tablet 7.5 mg PO BID ondansetron 4 mg tablet,disintegrating 4 mg PO Q6H PRN (Reason: nausea and vomiting) Qty: 20 0RF Additional Instructions: Follow-up with the surgeon in [place] or Dr. Fregoso here in [place]/prednisone burst for 9 days Stand Alone Forms: Portal Instructions Referrals: Physician,Non-Staff, MD [Primary Care Provider] - 1 week
[2023-12-12 13:23] LABS: Bilirubin Urine NEGATIVE (NEGATIVE); Blood Urine NEGATIVE (NEGATIVE); Clarity Urine CLEAR (CLEAR); Color Urine YELLOW (YELLOW); Glucose Urine UA NEGATIVE (NEGATIVE); Ketones Urine 15 mg/dL (NEGATIVE); Leukocyte Esterase Urine NEGATIVE (NEGATIVE); Nitrite Urine NEGATIVE (NEGATIVE); Protein Urine NEGATIVE (NEG/TRACE); Specific Gravity Urine 1.015 (1.005-1.025); Urobilinogen Urine 0.2 EU/dL (0.2-1.0)
[2023-12-12 13:27] LABS: Urine Microscopic Indicated NO
== END 2023-12-12 13:01 | disposition home or self-care (01) ==
PROVIDERS: Emergency Provider Emergency Medicine Emergency Medical Services
DX: R10.9 Unspecified abdominal pain (principal); F17.200 Nicotine dependence, unspecified, uncomplicated
CPT/HCPCS: 36415; 80053; 81003; 83605; 83690; 85025; 96374; 99284; J2930

== ENCOUNTER 2024-01-05 14:29 | Outpatient (OUT) | payer OTHER, SELFPAY ==
[2024-01-05 15:24] LABS: C Reactive Protein <0.50 mg/dL (<=0.50)
[2024-01-06 05:07] LABS: HIV Ab/p24 Ag Screen Non Reactive (Non Reactive)
[2024-01-06 15:09] LABS: Deamidated Gliadin Abs, IgA 3 units (0-19); Deamidated Gliadin Abs, IgG 2 units (0-19); Endomysial Antibody IgA Negative (Negative); Immunoglobulin A, Qn, Serum 111 mg/dL (90-386); t-Transglutaminase (tTG) IgA <2 U/mL (0-3); t-Transglutaminase (tTG) IgG <2 U/mL (0-5)
[2024-01-10 21:07] LABS: Calprotectin, Fecal 74 ug/g (0-120)
== END 2024-01-05 14:30 | disposition home or self-care (01) ==
LOC: LAB 14:32
DX: R19.7 Diarrhea, unspecified (principal); R10.9 Unspecified abdominal pain
CPT/HCPCS: 36415; 82784; 83993; 84443; 86140; 86231; 86258; 86364; 87389

== ENCOUNTER 2024-09-19 12:46 | Emergency (ER) | payer OTHER, SELFPAY ==
[2024-09-19 12:51] VITALS: BP 136/81; PULSE 100; TEMP 36.7; O2SAT 99; BMI 25.1
--- OUTSIDE RECORDS SUMMARY | 2024-09-19 13:00 | XMS_ITS | CCD ---
Author Organization [facility] Care Team Providers Care Exhaust Emissions Automotive Technician Name Role Phone LUL LAM Unavailable Unavailable LUL LAM Concha Unavailable Unavailable RUBIO RIVERA Unavailable Unavailable VIRGIL, DR ROMAN Shanks Attending Unavailabl e VIRGIL, DR ROMAN Shanks Consulting Unavailabl e VIRGIL, DR ROMAN Shanks Admitting Unavailabl e CRISTINE, DR CARRILLO Primary Care Unavailable NOEL WONG Consulting Unavailable BELLE PETER Consulting Unavailable PAY, DR ANTON Attending Unavailable CRISTINE, DR CARRILLO Primary Care Unavailable TIFFANIE, DR CAMARGO Consulting Unavailable PAY, DR ANTON Admitting Unavailable DUONG, DR GRAJEDA Consulting Unavailable BELLE PETER Consulting Unavailable Lauren Greene Unavailable No Pcp, No Pcp Primary Care Provider Unavailabl e NO PCP, NO PCP Primary Care Unavailable GIOVANNY HERNANDEZ Attending Unavailable NO PCP, NO PCP Primary Care Unavailable JEREMIAH DAVIES Attending Unavailable NO PCP, NO PCP Primary Care Unavailable CATALINO OVERTON Attending Unavaila CATALINO Gastelum Attending Unavaila CATALINO Gastelum Referring Unavaila ble NO PCP, NO PCP Primary Care Unavailable CATALINO OVERTON Attending Unavaila CATALINO Gastelum Referring Unavaila ble NO PCP, NO PCP Primary Care Unavailable MENDEL CROW Referring Unavailable NO PCP, NO PCP Primary Care Unavailable Luis Alberts MD Primary Care Provider NO FAMILY, PHYSICIAN Primary Care Provider Unava ilBRIA Merchant Emergency Provider [phone] Asaad, MD Imad Attending Provider Asaad, Imad Attending Unavailable Asaad, Imad Admitting Unavailable NO FAMILY, PHYSICIAN Primary Care Unavailable Shabnam Silverio Admitting Unavailable NO FAMILY, PHYSICIAN Primary Care Unavailable Shabnam Silverio Attending Unavailable LEXUSFABRIZIO MikeID M Attending Unavailable MENDEL CROW Referring Unavailable LEXUS, MUHAMID M Primary Care Unavailable LEXUS, MUHAMID M Attending Unavailable LEXUS, MUHAMID M Referring Unavailable LEXUS, MUHAMID M Primary Care Unavailable MENDEL CROW Attending Unavailable NO PCP, NO PCP Primary Care Unavailable LEXUS, MUHAMID M Attending Unavailable LEXUS, MUHAMID M Referring Unavailable LEXUS, MUHAMID M Primary Care Unavailable Allergies Allergy Classification Reported Allergen(s) Allergy Type Date of Onset Reaction(s) Facility (1 source) Cat/Feline Product Derivatives Drug allergy (disorder) [facility] Medications Current Medications Medication Drug Class(es) Dates Sig (Normalized) Sig (Original) acetaminophen 325 mg oral tablet (1 source) Start: 01-19-2024 take 1 tablet by mouth every six hours Acetaminophen (Pain Relief (Acetaminophen)) 325 mg tablet Active 325 MG PO Every 6 hours January 19, 2024 12:00am [id number] 200 actuat albuterol 0.09 mg/actuat metered dose inhaler (3 sources) beta2-Adrenergic Agonist Start: 02-02-2024 Albuterol Sulfate Active 2 INH INHALATION As Directed February 02, 2024 12:00am Albuterol Sulfat e Active Faviola Allergy (2 sources) Faviola Allergy Active amphetamine aspartate 3.75 mg / amphetamine sulfate 3.75 mg / dextroamphetamine saccharate 3.75 mg / dextroamphetamine sulfate 3.75 mg oral tablet (3 sources) Central Nervous System Stimulant Start: 2023 take 15 mg by mouth twice daily Dextroamphetamine-Am phetamine Active 15 MG PO Twice daily December 15, 2023 1:00am ciprofloxacin 500 mg oral tablet (1 source) Quinolone Antimicrobial Start: 2023 End: 2023 take 1 tablet by mouth in the morning, then take 1 tablet by mouth at bedtime ciprofloxacin HCl (CIPRO) 500 mg tablet Take 1 tablet (500 mg total) by mouth in the morning and 1 tablet (500 mg total) before bedtime. Do all this for 10 days. 20 tablet 0 11/28/2023 12/09/2023 Active fexofenadine hydrochloride 180 mg oral tablet (1 source) Histamine-1 Receptor Antagonist Start: 2023 take 1 tablet by mouth once daily Fexofenadine (Faviola Allergy) 180 mg tablet Active 180 MG PO Daily January 19, 2024 12:00am ibuprofen 800 mg oral tablet (2 sources) Nonsteroidal Anti-inflammatory Drug take 1 tablet by mouth every eight hours at mealtime as needed Ibuprofen 800 MG 1 tablet with food or milk as needed Orally every 8 hrs Active metroNIDAZOLE 500 mg oral tablet (1 source) Nitroimidazole Antimicrobial Start: 2023 End: 2023 take 1 tablet by mouth in the morning, then take 1 tablet by mouth at bedtime metroNIDAZOLE (FLAGYL) 500 mg tablet Take 1 tablet (500 mg total) by mouth in the morning and 1 tablet (500 mg total) before bedtime. Do all this for 10 days. 20 tablet 0 11/28/2023 12/09/2023 Active Multivitamin (Daily Multi-Vitamin) tablet (1 source) Start: 2023 take 1 tablet by mouth once daily Multivitamin (Daily Multi-Vitamin) tablet Active 1 TAB PO Daily January 19, 2024 12:00am ondansetron 4 mg disintegrating oral tablet (2 sources) Serotonin-3 Receptor Antagonist Start: 2023 ondansetron ODT (ZOFRAN ODT) 4 mg disintegrating tablet Dissolve 1 tablet (4 mg total) on tongue daily as needed for nausea or vomiting. 0 12/08/2023 Active Sod Picosulf-Mag Ox-Citric Ac (1 source) Start: 2023 take 1 dose by mouth once daily Sod Picosulf-Mag Ox-Citric Ac (Clenpiq) 10 mg-3.5 gram- 12 gram/175 mL solution Active 175 ML PO Daily 350 0 December 28, 2023 12:00am take first dose at 3PM evening before colonoscopy; 2nd dose at 9pm the night before colonoscopy Completed/Discontinued Medications Medication Drug Class(es) Dates Sig (Normalized) Sig (Original) dicyclomine hydrochloride 10 mg oral capsule (1 source) Anticholinergic Start: 12-15-2023 End: 12-28-2023 take 10 mg by mouth three times daily Dicyclomine Discontinued 10 MG PO Three times daily December 15, 2023 1:00am December 28, 2023 1:18pm hyoscyamine sulfate 0.125 mg sublingual tablet (3 sources) Start: 12-08-2023 End: 12-28-2023 take 0.125 mg by mouth once daily Hyoscyamine Sulfate Discontinued 0.125 MG PO Daily December 15, 2023 1:00am December 28, 2023 1:19pm ketorolac tromethamine 10 mg oral tablet (1 source) Nonsteroidal Anti-inflammatory Drug, Cyclooxygenase Inhibitor Start: 11-14-2023 End: 12-09-2023 take 1 tablet by mouth every six hours as needed for pain ketorolac (TORADOL) 10 mg tablet Take 1 tablet (10 mg total) by mouth every 6 (six) hours as needed for pain. 20 tablet 0 11/14/2023 12/09/2023 Discontinued (Therapy completed) Problems Active Problems Problem Classification Problem Date Documented Da te Episodic/Chronic Abdominal pain (3 sources) Abdominal pain; Translations: [Unspecified abdominal pain] Onset: 03-24-2024 12-23-2023 Episodic E Codes: Natural/environment (1 source) Other and unspecified overexertion or strenuous movements or postures, initial encounter; Translations: [OTH AND UNS OVREXRT/STRN MVMT/POS INT] Onset: 08-18-2022 Episodic E Codes: Struck by; against (1 source) Striking against or struck by other objects, initial encounter; Translations: [STRIKING AGNST/STRUCK OTH OBJ INIT] Onset: 07-10-2022 Episodic Other connective tissue disease (3 sources) Pain in right foot; Translations: [PAIN IN RIGHT FOOT] Onset: 06-30-2022 Episodic Other gastrointestinal disorders (2 sources) Diarrhea; Translations: [Diarrhea, unspecified] 12-09-2023 Episodic Other non-traumatic joint disorders (6 sources) Pain in right ankle and joints of right foot; Translations: [PAIN IN RIGHT ANKLE] Onset: 08-15-2022 Episodic Other non-traumatic joint disorders (1 source) Ankle pain Onset: 05-04-2024 Episodic Other skin disorders (1 source) Acne vulgaris; Translations: [Acne vulgaris] Onset: 05-04-2024 Episodic Regional enteritis and ulcerative colitis (1 source) Ulcerative colitis Onset: 12-09-2023 Chronic Residual codes; unclassified (1 source) FH: Ulcerative colitis; Translations: [Family history of other diseases of the digestive system] 12-09-2023 Episodic Spondylosis; intervertebral disc disorders; other back problems (2 sources) Degeneration of lumbar intervertebral disc; Translations: [Other intervertebral disc degeneration, lumbar region] 01-16-2024 Chronic Spondylosis; intervertebral disc disorders; other back problems [...] RIGHT FOOT INITIAL ENC] Onset: 07-10-2022 Episodic Unclassified (1 source) Establish Care Onset: 01-15-2024 Past or Other Problems Problem Classification Problem Date Documented Da te Episodic/Chronic Administrative/social admission (3 sources) Patient encounter status; Translations: [Persons encountering health services in other specified circumstances] Onset: 01-15-2024 12-09-2023 Episodic Allergic reactions (1 source) Unspecified contact dermatitis, unspecified cause; Translations: [Unspecified contact dermatitis, unspecified cause] Onset: 04-29-2017 Episodic Epilepsy; convulsions (2 sources) Unspecified convulsions; Translations: [Other convulsions] Onset: 05-23-2019 05-23-2019 Episodic Mood disorders (2 sources) Mood disorders Onset: 03-25-2021 Resolved: 01-15-2024 03-25-2021 Noninfectious gastroenteritis (6 sources) Colitis; Translations: [Noninfective gastroenteritis and colitis, unspecified] Onset: 11-28-2023 12-09-2023 Episodic Other gastrointestinal disorders (2 sources) Diarrhea, unspecified; Translations: [Diarrhea, unspecified] Onset: 12-09-2023 Episodic Residual codes; unclassified (1 source) Family history of other diseases of the digestive system; Translations: [Family history of other diseases of the digestive system] Onset: 12-09-2023 Episodic Results Test Name Value Interpretation Reference Range Facility C-Reactive Proteinon 024 CRP [Mass/Vol] mg/L Normal 0.0-0.5 [facility] Comment on above: Performed By: #### H IV SCREEN, CELIAC #### [facility] , #### TSH3, CRP #### [address] Celiacon 02-02-2024 Deamidated Gliadin Abs, IgA 4 Normal 0-19 [facility] Comment on above: Result Comment: Nega tive 0 - 19 Weak Positive 20 - 30 Moderate to Strong Positive >30 Performed By: #### H IV SCREEN, CELIAC #### [facility] , #### TSH3, CRP #### [address] Deamidated Gliadin Abs, IgG 3 Normal 0-19 [facility] Comment on above: Result Comment: Nega tive 0 - 19 Weak Positive 20 - 30 Moderate to Strong Positive >30 Performed By: #### H IV SCREEN, CELIAC #### [facility] , #### TSH3, CRP #### [address] Endomysial Antibody IgA Negative Normal Negative [facility] Comment on above: Performed By: #### H IV SCREEN, CELIAC #### [facility] , #### TSH3, CRP #### [address] Immunoglobulin A, Qn, Serum 110 mg/dL Normal 90-386 [facility] Comment on above: Result Comment: Perf ormed at: - [facility] [address] [id number] [employer] Plant Supervisor: Sal Pepe PhD, Phone: [phone] Performed By: #### H IV SCREEN, CELIAC #### [facility] , #### TSH3, CRP #### [facility] [address] T-Transglutaminase (tTG) IgA <2 Normal 0-3 [facility] Comment on above: Result Comment: Nega tive 0 - 3 Weak Positive 4 - 10 Positive >10 Tissue Transglutaminase (tTG) has been identified as the endomysial antigen. Studies have demonstr- ated that endomysial IgA antibodies have over 99% specificity for gluten sensitive enteropathy. Performed By: #### H IV SCREEN, CELIAC #### [facility] , #### TSH3, CRP #### [address] T-Transglutaminase (tTG) IgG <2 Normal 0-5 [facility] Comment on above: Result Comment: Nega tive 0 - 5 Weak Positive 6 - 9 Positive >9 Performed By: #### H IV SCREEN, CELIAC #### [facility] , #### TSH3, CRP #### [address] HIV 1/O/2 Antigen/Antibodyon 02-02-2024 HIV Screen 4th Generation Non-Reactive Normal Non Reactive [facility] Comment on above: Result Comment: HIV Negative HIV-1/HIV-2 antibodies and HIV-1 p24 antigen were NOT detected. There is no laboratory evidence of HIV infection. Performed at: [facility] [id number] [employer] Supervisor: Sal Pepe PhD, Phone: [phone] PERFORMED BY: [place] [address] PATHOLOGIST CHIEF METEOROLOGIST LEIGHTON JOHN M.D. Performed By: #### H IV SCREEN, CELIAC #### [facility] , #### TSH3, CRP #### [address] Thyroid Stimulating Hormoneo n 02-02-2024 TSH Qn 1.71 m[IU]/L Normal 0.45-5.33 [facility] Comment on above: Result Comment: PERF ORMED BY: [place] [address] PATHOLOGIST CHIEF METEOROLOGIST LEIGHTON JOHN M.D. Performed By: #### H IV SCREEN, CELIAC #### [facility] , #### TSH3, CRP #### [facility] [address] [place] [address] Alanine aminotransferase [En zymatic activity/volume] in Serum or PlasmaOrdered By: Shabnam Silverio on 12-15-2023 ALT [Catalytic activity/Vol] 8 U/L 7-52 [facility] Albumin [Mass/volume] in Ser um or Plasma by Bromocresol green (BCG) dye binding methoOrdered By: Shabnam Silverio on 12-15-2023 Albumin BCG dye [Mass/Vol] 4.6 g/dL 3.5-5.7 [facility] Alkaline phosphatase [Enzyma tic activity/volume] in Serum or PlasmaOrdered By: Shabnam Silverio on 12-15-2023 ALP [Catalytic activity/Vol] 41 U/L 34-104 [facility] Amphetamine Screen Ql (U)Ord ered By: Shabnam Silverio on 12-15-2023 Amphetamines Ql (U) Negative Negative [facility] Aspartate aminotransferase [ Enzymatic activity/volume] in Serum or PlasmaOrdered By: Shabnam Silverio on 12-15-2023 AST [Catalytic activity/Vol] 11 U/L 13-39 [facility] Barbiturates [Presence] in U rine by Screen methodOrdered By: Shabnam Silverio on 12-15-2023 Barbiturates Screen Ql (U) Negative Negative [facility] Basophils Auto (Bld) [#/Vol] Ordered By: Shabnam Silverio on 12-15-2023 Basophils (Bld) [#/Vol] 0.0 10*3/uL 0.0-0.2 [facility] Basophils/100 WBC Auto (Bld) Ordered By: Shabnam Silverio on 12-15-2023 Basophils/100 WBC (Bld) 0.1 % . F [facility] Benzodiazepines Screen Ql (U )Ordered By: Shabnam Silverio on 12-15-2023 Benzodiazepines Ql (U) Negative Negative [facility] Benzoylecgonine [Presence] i n Urine by Screen methodOrdered By: Shabnam Silverio on 12-15-2023 Benzoylecgonine Screen Ql (U) Negative Negative [facility] Bilirubin Test strip Ql (U)O rdered By: Shabnam Silverio on 12-15-2023 Bilirubin Ql (U) Negative Negative [facility] Bilirubin.total [Mass/volume ] in Serum or PlasmaOrdered By: Shabnam Silverio on 12-15-2023 Bilirubin [Mass/Vol] 0.6 mg/dL 0.3-1.0 [facility] CT abdomen pelvis w conon CT abdomen pelvis w con [facility] [place] [address] [place] [address] CT Scan Report Signed Patient: Gulshan Mcpherson MR#: [id number] 03 : 2000 Acct:[id number] Age/Sex: 23 / M ADM Date: 12/15/23 Loc: ER Room: Type: [facility] ER Attending Dr: Copies to: Shabnam Silverio APRN Ordering Provider: Shabnam Silverio APRN Date of Service: 12/15/23 CT/CT abdomen pelvis w con: Abdominal Pain CT Abdomen and Pelvis withcontrast TECHNIQUE: Axial imaging with 2-D reconstruction.90 cc of Isovue-300. The CT exam was performed using one or more the following dose reduction techniques: Automated exposure control, adjustment of the MA and/or Kv according to patient size, or use of the iterative reconstruction technique. COMPARISON: None History: Right-sided back pain. Right abdominal pain. LIMITATIONS: None LOWER THORAX Unremarkable LIVER: Unremarkable GALLBLADDER: No gallbladder abnormality identified. BILE DUCTS: No dilatation SPLEEN: Unremarkable PANCREAS: Unremarkable ADRENAL GLANDS: Unremarkable KIDNEYS:Unremarkable AORTA: No abdominal aortic aneurysm identified. RETROPERITONEUM: No significant retroperitoneal abnormalities identified. MESENTERY:Unremarkab le SMALL BOWEL: The small bowel loops are nondistended. APPENDIX: The appendix is normal. COLON: Unremarkable URINARY BLADDER: Urinary bladder wall thickening. Consider underdistention versus cystitis. REPRODUCTIVE SYSTEM: Reproductive structures are unremarkable. PNEUMOPERITONEUM: None PERITONEAL FLUID:None BONY STRUCTURES: Unremarkable ABDOMINAL WALL: Unremarkable CT/CT abdomen pelvis w con IMPRESSION: normal appendix. Urinary bladder wall thickening. Consider underdistention versus cystitis. No obstructive uropathy. Impression dictated by: Desean Norman M.D.12/15/2023 7:32 PM Dictation Location: [place] [address] Transcribed By: [facility] 12/15/231931 Dictated By: Desean Norman DO 12/15/231928 Signed By: 12/15/231931 Normal [facility] Calcium [Mass/volume] in Ser um or PlasmaOrdered By: Shabnam Silverio on 12-15-2023 Calcium [Mass/Vol] 9.4 mg/dL 8.6-10.3 [facility] Cannabinoids [Presence] in U rine by Screen methodOrdered By: Shabnam Silverio on 12-15-2023 Cannabinoids Screen Ql (U) Positive Negative [facility] Comment on above: These are unconfirme d results and should not be used for legal purposes. Drug Cut-Off Concentration: AMPH 1000 ng/mL YVAN 200 ng/mL JOHNNIE 200 ng/mL COCM 300 ng/mL OP 300 ng/mL PCP 25 ng/mL THC 20 ng/mL Carbon dioxide, total [Moles /volume] in Serum or PlasmaOrdered By: Shabnam Silverio on 12-15-2023 CO2 [Moles/Vol] 22.6 mmol/L 21.0-31.0 [facility] Chloride [Moles/volume] in S sushma or PlasmaOrdered By: Shabnam Silverio on 12-15-2023 Chloride [Moles/Vol] 106 mmol/L 98-107 [facility] Color Auto (U)Ordered By: Michael Silverio on 12-15-2023 Color (U) Yellow Yellow [facility] Complete Blood Count Auto Di ffon 12-15-2023 Basophils (Bld) [#/Vol] 0.0 10*3/uL Normal 0.0-0.2 [facility] Comment on above: Result Comment: PERF ORMED BY: [facility] [address] [place] [address] PATHOLOGIST CHIEF METEOROLOGIST LEIGHTON JOHN M.D. Performed By: #### L IPASE, CMP, CBC #### [address] Basophils/100 WBC (Bld) 0.1 % Normal . [facility] Comment on above: Performed By: #### L IPASE, CMP, CBC #### [address] Eosinophils (Bld) [#/Vol] 0.0 10*3/uL Normal 0.0-0.45 [facility] Comment on above: Performed By: #### L IPASE, CMP, CBC #### [address] Eosinophils/100 WBC (Bld) 0.0 % Normal . [facility] Comment on above: Performed By: #### L IPASE, CMP, CBC #### [address] Erythrocyte distribution width (RBC) [Ratio] 13.6 % Normal 12.0-14.8 [facility] Comment on above: Performed By: #### L IPASE, CMP, CBC #### [address] Hematocrit (Bld) [Volume fraction] 41.0 % Normal 38.8-50.0 [facility] Comment on above: Performed By: #### L IPASE, CMP, CBC #### [address] Hemoglobin (Bld) [Mass/Vol] 13.8 g/dL Normal 13.0-17.0 [facility] Comment on above: Performed By: #### L IPASE, CMP, CBC #### [address] Lymphocytes (Bld) [#/Vol] 0.4 10*3/uL Low 1.00-4.8 [facility] Comment on above: Performed By: #### L IPASE, CMP, CBC #### [address] Lymphocytes/100 WBC (Bld) 9.0 % Normal . [facility] Comment on above: Performed By: #### L IPASE, CMP, CBC #### [address] MCH (RBC) [Entitic mass] 28.5 pg Normal 27.5-35.2 [facility] Comment on above: Performed By: #### L IPASE, CMP, CBC #### [address] MCV (RBC) [Entitic vol] 84.6 fL Normal 83.5-101 [facility] Comment on above: Performed By: #### L IPASE, CMP, CBC #### [address] Mean Corpuscular HGB Conc 33.7 g/dL Normal 32.5-35.6 [facility] Comment on above: Performed By: #### L IPASE, CMP, CBC #### [address] Monocytes (Bld) [#/Vol] 0.1 10*3/uL Normal 0.0-0.8 [facility] Comment on above: Performed By: #### L IPASE, CMP, CBC #### [address] Monocytes/100 WBC (Bld) 19.10 % Normal 0.00-20.00 [facility] Comment on above: Performed By: #### L IPASE, CMP, CBC #### [address] Monocytes/100 WBC (Bld) 2.3 % Normal . [facility] Comment on above: Performed By: #### L IPASE, CMP, CBC #### [address] Neutrophils (Bld) [#/Vol] 4.2 10*3/uL Normal 1.8-7.7 [facility] Comment on above: Performed By: #### L IPASE, CMP, CBC #### [address] Neutrophils/100 WBC (Bld) 88.6 % Normal . [facility] Comment on above: Performed By: #### L IPASE, CMP, CBC #### [facility] [address] NRBC% 0.0 /100{WBC} Normal 0-0.5 [facility] Comment on above: Performed By: #### L IPASE, CMP, CBC #### [address] Platelet mean volume (Bld) [Entitic vol] 8.4 fL Normal 6.6-10.1 [facility] Comment on above: Performed By: #### L IPASE, CMP, CBC #### [address] Platelets (Bld) [#/Vol] 253 10*3/uL Normal 150-450 [facility] Comment on above: Performed By: #### L IPASE, CMP, CBC #### [address] RBC (Bld) [#/Vol] 4.85 10*6/uL Normal 3.90-5.60 [facility] Comment on above: Performed By: #### L IPASE, CMP, CBC #### [address] WBC (Bld) [#/Vol] 4.8 10*3/uL Normal 4.1-10.5 [facility] Comment on above: Performed By: #### L IPASE, CMP, CBC #### [address] Comprehensive Metabolic Pane alex 12-15-2023 Albumin [Mass/Vol] 4.6 g/dL Normal 3.5-5.7 [facility] Comment on above: Performed By: #### L IPASE, CMP, CBC #### [address] Albumin/Globulin [Mass ratio] 1.8 {ratio} Normal [facility] Comment on above: Performed By: #### L IPASE, CMP, CBC #### [facility] [address] ALP [Catalytic activity/Vol] 41 U/L Normal 34-104 [facility] Comment on above: Performed By: #### L IPASE, CMP, CBC #### [facility] [address] [place] [address] [place] ALT [Catalytic activity/Vol] 8 U/L Normal 7-52 [facility] Comment on above: Performed By: #### L IPASE, CMP, CBC #### [facility] [address] Anion gap [Moles/Vol] 16.5 mmol/L High 6.0-15.0 [facility] Comment on above: Performed By: #### L IPASE, CMP, CBC #### [address] AST [Catalytic activity/Vol] 11 U/L Low 13-39 [facility] Comment on above: Performed By: #### L IPASE, CMP, CBC #### [place] [address] [place] Bilirubin [Mass/Vol] 0.6 mg/dL Normal 0.3-1.0 [facility] Comment on above: Performed By: #### L IPASE, CMP, CBC #### [facility] [address] [place] [address] [place] Calcium [Mass/Vol] 9.4 mg/dL Normal 8.6-10.3 [facility] Comment on above: Performed By: #### L IPASE, CMP, CBC #### [facility] [address] [place] [address] [place] Chloride [Moles/Vol] 106 mmol/L Normal 98-107 [facility] Comment on above: Performed By: #### L IPASE, CMP, CBC #### [facility] [address] [place] [address] [place] CO2 [Moles/Vol] 22.6 mmol/L Normal 21.0-31.0 [facility] [facility] Comment on above: Performed By: #### L IPASE, CMP, CBC #### [address] Creatinine [Mass/Vol] 0.73 mg/dL Normal 0.70-1.30 [facility] Comment on above: Performed By: #### L IPASE, CMP, CBC #### [address] Creatinine Clr Calc Pharmacy 139.01 Normal [facility] Comment on above: Performed By: #### L IPASE, CMP, CBC #### [facility] [address] GFR/1.73 sq M.predicted MDRD (S/P/Bld) [Vol rate/Area] mL/min/{1.73_m2} Normal [facility] Comment on above: Performed By: #### L IPASE, CMP, CBC #### [address] Globulin (S) [Mass/Vol] 2.5 g/dL Normal T he [facility] Comment on above: Performed By: #### L IPASE, CMP, CBC #### [address] Glucose [Mass/Vol] 113 mg/dL High 70-100 [facility] Comment on above: Result Comment: [place] Glucose Reference Range is dependent on time and content of last meal. Glucose of more than 200 mg/dL in a nonstressed, ambulatory subject supports the diagnosis of Diabetes Mellitus. ADA recommended reference range Performed By: #### L IPASE, CMP, CBC #### [address] Potassium [Moles/Vol] 4.1 mmol/L Normal 3.5-5.1 [facility] Comment on above: Performed By: #### L IPASE, CMP, CBC #### [address] Protein [Mass/Vol] 7.1 g/dL Normal 6.4-8.9 [facility] Comment on above: Performed By: #### L IPASE, CMP, CBC #### [address] Sodium [Moles/Vol] 141 mmol/L Normal 136-145 [facility] Comment on above: Performed By: #### L IPASE, CMP, CBC #### [address] Urea nitrogen [Mass/Vol] 15 mg/dL Normal 7-25 [facility] Comment on above: Performed By: #### L IPASE, CMP, CBC #### [address] Creatinine [Mass/volume] in Serum or PlasmaOrdered By: Shabnam Silverio on 12-15-2023 Creatinine [Mass/Vol] 0.73 mg/dL 0.70-1.30 [facility] Drug Screen,Urineon 12-15-19 24 Amphetamine Screen,Urine Negative Normal Negative [facility] Comment on above: Performed By: #### U A, URDS #### [address] Barbiturate Screen,Urine Negative Normal Negative [facility] Comment on above: Performed By: #### U A, URDS #### [address] Benzodiazepines Screen,Urine Negative Normal Negative [facility] Comment on above: Performed By: #### U A, URDS #### [address] Cannabinoid Screen,Urine Positive High Negative [facility] Comment on above: Result Comment: Thes e are unconfirmed results and should not be used for legal purposes. Drug Cut-Off Concentration: AMPH 1000 ng/mL YVAN 200 ng/mL JOHNNIE 200 ng/mL COCM 300 ng/mL OP 300 ng/mL PCP 25 ng/mL THC 20 ng/mL PERFORMED BY: [place] [address] PATHOLOGIST CHIEF METEOROLOGIST LEIGHTON JOHN M.D. Performed By: #### U A, URDS #### [facility] [address] Cocaine Screen,Urine Negative Normal Negative [facility] Comment on above: Performed By: #### U A, URDS #### [facility] [address] Opiate Screen,Urine Negative Normal Negative [facility] Comment on above: Performed By: #### U A, URDS #### [facility] [address] Phencyclidine Screen,Urine Negative Normal Negative [facility] Comment on above: Performed By: #### U A, URDS #### [facility] [address] Eosinophils Auto (Bld) [#/Vo l]Ordered By: Shabnam Silverio on 12-15-2023 Eosinophils (Bld) [#/Vol] 0.0 10*3/uL 0.0-0.45 [facility] Eosinophils/100 WBC Auto (Bl d)Ordered By: Shabnam Silverio on 12-15-2023 Eosinophils/100 WBC (Bld) 0.0 % . [facility] Erythrocyte distribution wid th Auto (RBC) [Ratio]Ordered By: Shabnam Silverio on 12-15-2023 Erythrocyte distribution width (RBC) [Ratio] 13.6 % 12.0-14.8 [facility] Globulin Calc (S) [Mass/Vol] Ordered By: Shabnam Silverio on 12-15-2023 Globulin (S) [Mass/Vol] 2.5 g/dL [facility] Glucose [Mass/volume] in Ser um or PlasmaOrdered By: Shabnam Silverio on 12-15-2023 Glucose [Mass/Vol] 113 mg/dL 70-100 [facility] Comment on above: ADA recommended refe rence rangeRandom Glucose Reference Range is dependent on time and content of last meal. Glucose of more than 200 mg/dL in a nonstressed, ambulatory subject supports the diagnosis of Diabetes Mellitus. Hematocrit Auto (Bld) [Volum e fraction]Ordered By: Shabnam Silverio on 12-15-2023 Hematocrit (Bld) [Volume fraction] 41.0 % 38.8-50.0 [facility] Hemoglobin [Mass/volume] in BloodOrdered By: Shabnam Silverio on 12-15-2023 Hemoglobin (Bld) [Mass/Vol] 13.8 g/dL 13.0-17.0 [facility] Ketones Auto test strip (U) [Mass/Vol]Ordered By: [facility]23 Ketones (U) [Mass/Vol] Trace Negative Fi [facility] Leukocytes [#/volume] correc pj for nucleated erythrocytes in Blood by Automated counOrdered By: Shabnamgeri Silverio on 12-15-2023 WBC corrected for nucl RBC Auto (Bld) [#/Vol] 4.8 10*3/uL 4.1-10.5 [facility] Lipaseon 12-15-2023 Lipase [Catalytic activity/Vol] 6.0 U/L Low 11.0-82.0 [facility] Comment on above: Result Comment: PERF ORMED BY: [place] [address] PATHOLOGIST CHIEF METEOROLOGIST LEIGHTON JOHN M.D. Performed By: #### L IPASE, CMP, CBC #### [address] Lipase [Enzymatic activity/v olume] in Serum or PlasmaOrdered By: Shabnam Silverio on 12-15-2023 Lipase [Catalytic activity/Vol] 6.0 U/L 11.0-82.0 [facility] Lymphocytes Auto (Bld) [#/Vo l]Ordered By: Shabnam Silverio on 12-15-2023 Lymphocytes (Bld) [#/Vol] 0.4 10*3/uL 1.00-4.8 [facility] Lymphocytes/100 WBC Auto (Bl d)Ordered By: Shabnam [facility] on 12-15-2023 Lymphocytes/100 WBC (Bld) 9.0 % . [facility] MCH Auto (RBC) [Entitic mass ]Ordered By: Shabnam Silverio on 12-15-2023 MCH (RBC) [Entitic mass] 28.5 pg 27.5-35.2 [facility] MCHC Auto (RBC) [Mass/Vol]Or dered By: Shabnam Silverio on 12-15-2023 MCHC (RBC) [Mass/Vol] 33.7 g/dL 32.5-35.6 Fir [facility] MCV Auto (RBC) [Entitic vol] Ordered By: Shabnam Silverio on 12-15-2023 MCV (RBC) [Entitic vol] 84.6 fL 83.5-101 F [facility] Monocyte distribution width [Entitic volume] in Blood by AutomatedOrdered By: Shabnam Silverio on 12-15-2023 Monocyte distribution width Auto (Bld) [Entitic vol] 19.10 % 0.00-20.00 [facility] Monocytes Auto (Bld) [#/Vol] Ordered By: Shabnam Silverio on 12-15-2023 Monocytes (Bld) [#/Vol] 0.1 10*3/uL 0.0-0.8 [facility] Monocytes/100 WBC Auto (Bld) Ordered By: Shabnam Silverio on 12-15-2023 Monocytes/100 WBC (Bld) 2.3 % . F [facility] Neutrophils Auto (Bld) [#/Vo l]Ordered By: Shabnam Silverio on 12-15-2023 Neutrophils (Bld) [#/Vol] 4.2 10*3/uL 1.8-7.7 [facility] Neutrophils/100 WBC Auto (Bl d)Ordered By: Shabnam Silverio on 12-15-2023 Neutrophils/100 WBC (Bld) 88.6 % . [facility] Nitrite Test strip Ql (U)Ord ered By: Shabnam Silverio on 12-15-2023 Nitrite Ql (U) Negative Negative [facility] No Panel InformationOrdered By: Shabnam Silverio on 12-15-2023 Estimated GFR (CKD-EPI) > 60.0 mL/Min [facility] Pharmacy Creatinine Clearance (Chem 139.01 [facility] Nucleated erythrocytes [Pres ence] in Blood by Automated countOrdered By: Shabnam Silverio on 12-15-2023 Nucleated RBC Auto Ql (Bld) 0.0 /100{WBC} 0-0.5 [facility] Opiates [Presence] in Urine by Screen methodOrdered By: Shabnam Silverio on 12-15-2023 Opiates Screen Ql (U) Negative Negative [facility] Phencyclidine Screen Ql (U)O rdered By: Shabnam Silverio on 12-15-2023 Phencyclidine Ql (U) Negative Negative [facility] Platelet mean volume Auto (B ld) [Entitic vol]Ordered By: Shabnam Silverio on 12-15-2023 Platelet mean volume (Bld) [Entitic vol] 8.4 fL 6.6-10.1 [facility] Platelets Auto (Bld) [#/Vol] Ordered By: Shabnam Silverio on 12-15-2023 Platelets (Bld) [#/Vol] 253 10*3/uL 150-450 [facility] Potassium [Moles/volume] in Serum or PlasmaOrdered By: Shabnam Silverio on 12-15-2023 Potassium [Moles/Vol] 4.1 mmol/L 3.5-5.1 [facility] Protein Auto test strip (U) [Mass/Vol]Ordered By: Shabnam Silverio on 12-15-2023 Protein (U) [Mass/Vol] Negative Negative [facility] Protein [Mass/volume] in Ser um or PlasmaOrdered By: Shabnam Silverio on 12-15-2023 Protein [Mass/Vol] 7.1 g/dL 6.4-8.9 [facility] RBC Auto (Bld) [#/Vol]Ordere d By: Shabnam Silverio on 12-15-2023 RBC (Bld) [#/Vol] 4.85 10*6/uL 3.90-5.60 [facility] Serum or plasma albumin/glob ulin mass ratioOrdered By: Shabnam Silverio on 12-15-2023 Albumin/Globulin [Mass ratio] 1.8 {ratio} [facility] Serum or plasma anion gap de terminationOrdered By: Shabnam Silverio on 12-15-2023 Anion gap [Moles/Vol] 16.5 mmol/L 6.0-15.0 [facility] Sodium [Moles/volume] in Ser um or PlasmaOrdered By: Shabnam Silverio on 12-15-2023 Sodium [Moles/Vol] 141 mmol/L 136-145 [facility] Specific gravity Auto test s trip (U) [Rel density]Ordered By: Shabnam Silverio on 12-15-2023 Specific gravity (U) [Rel density] 1.020 1.001-1.030 [facility] Urea nitrogen [Mass/volume] in Serum or PlasmaOrdered By: Shabnam Silverio on 12-15-2023 Urea nitrogen [Mass/Vol] 15 mg/dL 7- [facility] Urinalysison 12-15-2023 Appearance (U) Clear Normal Clear [facility] Comment on above: Order Comment: Name Collection Type:: Clean-Voided Midstream Performed By: #### U A, URDS #### [facility] [address] [place] [address] [place] Bilirubin,Urine Negative Normal Negative [facility] Comment on above: Order Comment: Name Collection Type:: Clean-Voided Midstream Performed By: #### U A, URDS #### [facility] [address] [place] [address] [place] Color (U) Yellow Normal Yellow [facility] Comment on above: Order Comment: Name Collection Type:: Clean-Voided Midstream Performed By: #### U A, URDS #### [facility] [address] [place] [id number] [place] Glucose Ql (U) Normal Normal Normal [facility] Comment on above: Order Comment: Name Collection Type:: Clean-Voided Midstream Performed By: #### U A, URDS #### [facility] [address] [place] [id number] [place] Ketones Ql (U) Trace High Negative [facility] Comment on above: Order Comment: Name Collection Type:: Clean-Voided Midstream Performed By: #### U A, URDS #### [facility] [address] [place] [id number] [place] Leukocyte esterase Test strip Ql (U) Negative Normal Negative [facility] Comment on above: Order Comment: Name Collection Type:: Clean-Voided Midstream Performed By: #### U A, URDS #### [place] [address] [place] Nitrite,Urine Negative Normal Negative [facility] Comment on above: Order Comment: Name Collection Type:: Clean-Voided Midstream Performed By: #### U A, URDS #### [place] [address] [place] Occult Blood,Urine Negative Normal Negative [facility] Comment on above: Order Comment: Name Collection Type:: Clean-Voided Midstream Result Comment: PERF ORMED BY: [place] [address] PATHOLOGIST CHIEF METEOROLOGIST LEIGHTON JOHN M.D. Performed By: #### U A, URDS #### [place] [address] [place] pH (U) 7.0 [pH] Normal 5.0-9.0 [facility] Comment on above: Order Comment: Name Collection Type:: Clean-Voided Midstream Performed By: #### U A, URDS #### [place] [address] [place] Protein,Urine Negative Normal Negative [facility] Comment on above: Order Comment: Name Collection Type:: Clean-Voided Midstream Performed By: #### U A, URDS #### [place] [address] [place] Specificy [place],Urine 1.020 Normal 1.001-1.030 [facility] Comment on above: Order Comment: Name Collection Type:: Clean-Voided Midstream Performed By: #### U A, URDS #### [place] [address] [place] Urobilinogen,Urine Normal Normal Normal [facility] Comment on above: Order Comment: Name Collection Type:: Clean-Voided Midstream Performed By: #### U A, URDS #### [place] [address] [place] Urine clarity by refractomet ry automatedOrdered By: Shabnam Silverio on 12-15-2023 Clarity Refractometry automated (U) Clear Clear [facility] Urine glucose measurement by automated test strip (mass/volume)Ordered By: Shabnam Silverio on 12-15-2023 Glucose Auto test strip (U) [Mass/Vol] Normal mg/dL Normal [facility] Urine hemoglobin detection b y automated test stripOrdered By: Shabnam Silverio on 12-15-2023 Hemoglobin Auto test strip Ql (U) Negative Negative [facility] Urine leukocyte esterase det ection by automated test stripOrdered By: Shabnam Silverio on 12-15-2023 Leukocyte esterase Auto test strip Ql (U) Negative Negative [facility] Urobilinogen Auto test strip (U) [Mass/Vol]Ordered By: Shabnam Silverio on 12-15-2023 Urobilinogen (U) [Mass/Vol] Normal mg/dL Normal [facility] WBC Auto (Bld) [#/Vol]Ordere d By: Shabnam Silverio on 12-15-2023 WBC (Bld) [#/Vol] 4.8 10*3/uL 4.1-10.5 [facility] pH Auto test strip (U)Ordere d By: Shabnam Silverio on 12-15-2023 pH (U) 7.0 [pH] 5.0-9.0 [facility] C DIFFICILE BY PCRon 024 C. difficile toxin genes DUC+probe Ql (Stl) TOXIGENIC C DIFF Negative (qualifier value) 027 NAP1 Negative (qualifier value) Normal [facility] Comment on above: Performed By: #### 5 4067-4 #### [facility] ([id number]) [address] [place] [address], [address] [place] [address] #### [id number] #### [facility] ([id number]) [address] [place] [address], [place] [address] [facility] ([id number]) [address] [place] [address], [address] [place] [address] #### [id number] #### [facility] ([id number]) [address] [place] [address], [place] [address] Calprotectin (Stl) [Mass/Mas s]on 12-10-2023 CALPROTECTIN STOOL See Below Normal [facility] Comment on above: Result Comment: NOTE TEST RESULT FLAG UNIT REF.RANGE --------- CALPROTECTIN, FECAL QUANTITATIVE 97.8 H ug/g <50 CALPROTECTIN, FECAL INTERP See below A Normal Borderline elevated. Re-evaluation in 4-6 weeks is recommended if clinically indicated. On March 10, 2023, [facility] [employer] implemented a new fecal calprotectin method, the [employer] Calprotectin assay. For assistance with interpretation of results in patients undergoing serial monitoring, contact Client Services at [phone] or [phone] to discuss options, preferably within 7 days of issuing this report. Interpretation: <50.0 ug/g: Normal 50.0 ug/g - 120.0 ug/g: Borderline elevated. Re-evaluation in 4-6 weeks is recommended if clinically indicated. >120.0 ug/g: Elevated Test Performed By: [facility] [address] [place] [address] Gas Line Repairer: Liliya Bowling III #[id number] Performed By: #### 5 4067-4 #### [facility] ([id number]) [address] [place] [address], [address] [place] [address] #### [id number] #### [facility] ([id number]) [address] [place] [address] [facility] ([id number]) [address] [place] [address], [address] [place] [address] #### [id number] #### [facility] ([id number]) [address] [place] [address] GI PANELon 12-10-2023 Gastrointestinal pathogens DNA and RNA panel DUC+non-probe (Stl) SPECIMEN SOURCE STOOL CAMPYLOBACTER Not detected (qualifier value) PLESIOMONAS Not detected (qualifier value) SALMONELLA Not detected (qualifier value) VIBRIO Not detected (qualifier value) VIBRIO CHOLERAE Not detected (qualifier value) Y. ENTEROCOLITICA Not detected (qualifier value) AGGREGATIVE E COLI Not detected (qualifier value) PATHOGENIC E COLI Not detected (qualifier value) TOXIGENIC E COLI Not detected (qualifier value) SHIGA TOXIN E COLI Not detected (qualifier value) SHIGELLA-E COLI Not detected (qualifier value) CRYPTOSPORIDIUM Not detected (qualifier value) CYCLOSPORA Not detected (qualifier value) E HISTOLYTICA Not detected (qualifier value) GIARDIA LAMBLIA Not detected (qualifier value) ADENOVIRUS Not detected (qualifier value) ASTROVIRUS Not detected (qualifier value) NOROVIRUS Not detected (qualifier value) ROTAVIRUS A Not detected (qualifier value) SAPOVIRUS Not detected (qualifier value) Normal [facility] Comment on above: Performed By: #### 5 4067-4 #### [facility] ([id number]) [address] [place] [address], [address] [address] #### [id number] #### [facility] ([id number]) [address] [place] [address] [facility] ([id number]) [address] [place] [address], [address] [place] [address] #### [id number] #### [facility] ([id number]) [address] [place] [address] CBC AND AUTO DIFFon 11-28-19 24 ABSOLUTE BASOPHIL 0.0 X10E9/L Normal 0.0-0.2 [facility] Comment on above: Performed By: #### C BCA, CMP, 1988-02 #### [facility] ([id number]) [address] [place] [address] ABSOLUTE NEUTROPHIL 8.8 X10E9/L High 1.5-6.6 [facility] Comment on above: Performed By: #### Naomi DIAZ [facility], 1988-02 #### [facility] ([id number]) [address] [place] [address] Basophils/100 WBC (Bld) 0.3 % Normal [facility] Comment on above: Performed By: #### Naomi DIAZ [facility], 1988-02 #### [facility] ([id number]) [address] [place] [address] Eosinophils (Bld) [#/Vol] 0.2 10*3/uL Normal 0.0-0.4 [facility] Comment on above: Performed By: #### Naomi DIAZ [facility], 1988-02 #### [facility] ([id number]) [address] [place] [address] Eosinophils/100 WBC (Bld) 1.6 % Normal [facility] Comment on above: Performed By: #### Naomi DIAZ [facility], 1988-02 #### [facility] ([id number]) [address] [place] [address] Erythrocyte distribution width (RBC) [Ratio] 13.7 % Normal 11.5-15.0 [facility] Comment on above: Performed By: #### Naomi DIAZ [facility], 1988-02 #### [facility] ([id number]) [address] [place] [address] Hematocrit (Bld) [Volume fraction] 45.1 % Normal 39-49 [facility] Comment on above: Performed By: #### Naomi DIAZ [facility], 1988-02 #### [facility] ([id number]) [address] [place] [address] Hemoglobin (Bld) [Mass/Vol] 15.6 g/dL Normal 13.0-17.0 [facility] Comment on above: Performed By: #### Naomi DIAZ [facility], 1988-02 #### [facility] ([id number]) [address] [place] [address] Lymphocytes (Bld) [#/Vol] 1.4 10*3/uL Normal 1.0-3.5 [facility] Comment on above: Performed By: #### Naomi DIAZ [facility], 1988-02 #### [facility] ([id number]) [address] [place] [address] Lymphocytes/100 WBC (Bld) 12.4 % Normal [facility] Comment on above: Performed By: #### Naomi DIAZ [facility], 1988-02 #### [facility] ([id number]) [address] [place] [address] MCH (RBC) [Entitic mass] 29.3 pg Normal 27-34 [facility] Comment on above: Performed By: #### Naomi DIAZ [facility], 1988-02 #### [facility] ([id number]) [address] [place] [address] MCHC (RBC) [Mass/Vol] 34.5 g/dL Normal 32-36 [facility] Comment on above: Performed By: #### Naomi DIAZ [facility], 1988-02 #### [facility] ([id number]) [address] [place] [address] MCV (RBC) [Entitic vol] 85 fL Normal 80-100 [facility] Comment on above: Performed By: #### Naomi DIAZ [facility], 1988-02 #### [facility] ([id number]) [address] [place] [address] Monocytes (Bld) [#/Vol] 0.9 10*3/uL Normal 0-0.9 [facility] Comment on above: Performed By: #### Naomi DIAZ [facility], 1988-02 #### [facility] ([id number]) [address] [place] [address] Monocytes/100 WBC (Bld) 7.6 % Normal [facility] Comment on above: Performed By: #### Naomi DIAZ [facility], 1988-02 #### [facility] ([id number]) [address] [place] [address] Neutrophils/100 WBC (Bld) 78.1 % Normal [facility] Comment on above: Performed By: #### Naomi DIAZ [facility], 1988-02 #### [facility] ([id number]) [address] [place] [address] Platelet mean volume (Bld) [Entitic vol] 8.2 fL Normal 7-12 [facility] Comment on above: Performed By: #### Naomi DIAZ [facility], 1988-02 #### [facility] ([id number]) [address] [place] [address] Platelets (Bld) [#/Vol] 326 10*3/uL Normal 150-450 [facility] Comment on above: Performed By: #### Naomi DIAZ [facility], 1988-02 #### [facility] ([id number]) [address] [place] [address] 33867 RBC COUNT 5.31 X10E12/L Normal 4.10-5.70 [facility] Comment on above: Performed By: #### Naomi DIAZ [facility], 1988-02 #### [facility] ([id number]) [address] [place] [address] WBC (Bld) [#/Vol] 11.3 10*3/uL High 4.0-11.0 [facility] Comment on above: Performed By: #### Naomi DIAZ [facility], 1988-02 #### [facility] ([id number]) [address] [place] [address] COMPREHENSIVE METABOLIC PANE Alex 11-28-2023 Albumin [Mass/Vol] 5.0 g/dL Normal 3.2-5.3 [facility] Comment on above: Performed By: #### C EMILY [facility], 1988-02 #### [facility] ([id number]) [address] [place] [address] ALP [Catalytic activity/Vol] 71 U/L Normal 39-130 [facility] Comment on above: Performed By: #### C EMILY [facility], 1986-02 #### [facility] ([id number]) [address] [place] [address] 56509 ALT [Catalytic activity/Vol] 13 U/L Normal 0-40 [facility] Comment on above: Performed By: #### Naomi DIAZ [facility], 1986-02 #### [facility] ([id number]) [address] [place] [address] 11934 Anion gap [Moles/Vol] 8 mmol/L Normal 5-15 [facility] Comment on above: Performed By: #### Naomi DIAZ [facility], 1986-02 #### [facility] ([id number]) [address] [place] [address] 08748 AST [Catalytic activity/Vol] 19 U/L Normal 0-41 [facility] Comment on above: Performed By: #### Naomi DIAZ [facility], 1986-02 #### [facility] ([id number]) [address] [place] [address] 50910 Bilirubin [Mass/Vol] 0.9 mg/dL Normal 0.3-1.2 [facility] Comment on above: Performed By: #### Naomi DIAZ [facility], 1986-02 #### [facility] ([id number]) [address] [place] [address] 85984 Calcium [Mass/Vol] 9.6 mg/dL Normal 8.5-10.5 [facility] Comment on above: Performed By: #### C EMILY [facility], 1986-02 #### [facility] ([id number]) [address] [place] [address] 48937 Chloride [Moles/Vol] 101 mmol/L Normal 98-109 [facility] Comment on above: Performed By: #### C EMILY [facility], 1986-02 #### [facility] ([id number]) [address] [place] [address] 03002 CO2 [Moles/Vol] 27 mmol/L Normal 22-32 [facility] Comment on above: Performed By: #### Naomi DIAZ [facility], 1986-02 #### [facility] ([id number]) [address] [place] [address] 98379 Creatinine [Mass/Vol] 1.15 mg/dL Normal 0.70-1.20 [facility] Comment on above: Result Comment: METH OD TRACEABLE TO IDMS STANDARD Performed By: #### C EMILY [facility], 1986-02 #### [facility] ([id number]) [address] [place] [address] 71390 eGFR (CKD-EPI) NON-RACE DEPENDENT >90 Normal >59 [facility] Comment on above: Result Comment: Reported eGFR is based on the CKD-EPI 2020 equation that does not use a race coefficient. Performed By: #### C EMILY [facility], 1986-02 #### [facility] ([id number]) [address] [place] [address] 40320 Glucose [Mass/Vol] 100 mg/dL High 65-99 [facility] Comment on above: Performed By: #### Naomi DIAZ [facility], 1986-02 #### [facility] ([id number]) [address] [place] [address] 30295 Potassium [Moles/Vol] 4.3 mmol/L Normal 3.5-5.0 [facility] Comment on above: Performed By: #### Naomi DIAZ [facility], 1986-02 #### [facility] ([id number]) [address] [place] [address] Protein [Mass/Vol] 8.4 g/dL High 6.0-8.0 [facility] Comment on above: Performed By: #### C EMILY [facility], 1986-02 #### [facility] ([id number]) [address] [place] [address] 14586 Sodium [Moles/Vol] 136 mmol/L Normal 134-146 [facility] Comment on above: Performed By: #### C EMILY [facility], 1986-02 #### [facility] ([id number]) [address] [place] [address] 93148 Urea nitrogen [Mass/Vol] 21 mg/dL Normal 5-23 [facility] Comment on above: Performed By: #### Naomi DIAZ [facility], 1986-02 #### [facility] ([id number]) [address] [place] [address] 95190 CRP [Mass/Vol]on 11-28-2023 C REACTIVE PROTEIN 0.6 mg/dL Normal 0.000-0.744 [facility] Comment on above: Performed By: #### Naomi DIAZ [facility], 1986-02 #### [facility] ([id number]) [address] [place] [address] ABDOMEN AND PELVIS WO CON Ton [...] Knapp MD on 11/28/2023 1:58 PM Normal [facility] URN MACROSCOPIC NURon 2023 BILIRUBIN ANITRA Negative Normal NEG [facility] Comment on above: Performed By: #### N UM #### [facility] ([id number]) [address] [place] [address] 78001 BLOOD/HGB ANITRA MODERATE Abnormal NEG [facility] Comment on above: Performed By: #### N UM #### [facility] ([id number]) [address] [place] [address] 10048 GLUCOSE ANITRA Negative Normal NEG [facility] Comment on above: Performed By: #### N UM #### [facility] ([id number]) [address] [place] [address] [place] [address] KETONES ANITRA Negative Normal NEG [facility] Comment on above: Performed By: #### N UM #### [facility] ([id number]) [address] [place] [address] 39032 LEUKOCYTE ESTERASE ANITRA Negative Normal NEG [facility] Comment on above: Performed By: #### N UM #### [facility] ([id number]) [address] [place] [address] [place] [address] NITRITE ANITRA Negative Normal NEG [facility] Comment on above: Performed By: #### N UM #### [facility] ([id number]) [address] [place] [address] 19422 PH ANITRA 6.0 Normal 5.0-8.5 [facility] Comment on above: Performed By: #### N UM #### [facility] ([id number]) [address] [place] [address] 97564 PROTEIN ANITRA Negative Normal NEG [facility] Comment on above: Performed By: #### N UM #### [facility] ([id number]) [address] [place] [address] 10517 SPECIFIC GRAVITY ANITRA 1.025 Normal 1.003-1.035 [facility] Comment on above: Performed By: #### N UM #### [facility] ([id number]) [address] [place] [address] [place] [address] UROBILINOGEN ANITRA 0.2 eu/dL Normal <1.1 [facility] Comment on above: Performed By: #### N UM #### [facility] ([id number]) [address] [place] [address] 27464 XR SPINE LUMBAR 2 OR 3 VWSon 11-28-2023 XR SPINE LUMBAR 2 OR 3 VWS XR SPINE LUMBAR 2 OR 3 VWS *ADDENDUM*Upon comparison to prior CT of the abdomen and pelvis from 09/03/2007. 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 Finalized by Catalino Valentino on 11/28/2023 12:08 PM [facility] XR ANKLE RT MIN 3 VIEWSon XR ANKLE RT MIN 3 VIEWS IMAGES REVIEWED: XR ANKLE RT MIN 3 VIEWS COMPARISON: 06/30/2022. CLINICAL INDICATION: Pain FINDINGS/IMPRESSION: 1. No evidence of acute osseous abnormality of the right ankle. 2. Prominent lateral ankle soft tissue swelling. Electronically authenticated by: BELLE PETER Date: 2022-08-15 20:02 Normal [facility] XR FOOT RT MIN 3 VIEWSon XR FOOT RT MIN 3 VIEWS IMAGES REVIEWED: XR FOOT RT MIN 3 VIEWS COMPARISON: None available. CLINICAL INDICATION: Injury, pain. FINDINGS/IMPRESSION: No evidence of acute osseous abnormality of the right foot. Electronically authenticated by: BELLE PETER Date: 2022-06-30 20:09 Normal [facility] ED Provider Noteon 7 HIM IP Note OR [employer] Normal [facility] Vital Signs Date Time Vital Sign Value Performing Clinician Facility 02-02-2024 10:18-0400 Diastolic blood pressure 71 mm[Hg] PHYSICIAN NO [facility] 02-02-2024 10:18-0400 Heart rate 80 /min PHYSICIAN NO [facility] 02-02-2024 10:18-0400 Respiratory rate 14 /min PHYSICIAN NO [facility] 02-02-2024 10:18-0400 SaO2% (BldA) [Mass fraction] 97 % PHYSICIAN NO [facility] 02-02-2024 10:18-0400 Systolic blood pressure 118 mm[Hg] PHYSICIAN NO [facility] 02-02-2024 08:27-0400 Body height 175.26 cm PHYSICIAN NO [facility] 02-02-2024 08:27-0400 Body weight 64 kg PHYSICIAN NO [facility] 01-15-2024 13:22-0400 Body height 175.3 cm Luis Alberts MD Work Phone: [facility] 01-15-2024 13:22-0400 Body mass index (BMI) [Ratio] 20.38 kg/m2 Luis Alberts MD Work Phone: [facility] 01-15-2024 13:22-0400 Body temperature 98.29 [degF] Luis Alberts MD Work Phone: [facility] 01-15-2024 13:22-0400 Body weight 62.6 kg Luis Alberts MD Work Phone: [facility] 01-15-2024 13:22-0400 Diastolic blood pressure 74 mm[Hg] Luis Alberts MD Work Phone: [facility] 01-15-2024 13:22-0400 Heart rate 78 /min Luis Alberts MD Work Phone: [facility] 01-15-2024 13:22-0400 SaO2% (BldA) [Mass fraction] 98 % Luis Alberts MD Work Phone: [facility] 01-15-2024 13:22-0400 Systolic blood pressure 128 mm[Hg] Luis Alberts MD Work Phone: [facility] 12-28-2023 13:16-0400 Body height 172.72 cm PHYSICIAN NO [facility] 12-28-2023 13:16-0400 Body mass index (BMI) [Ratio] 19.8 kg/m2 PHYSICIAN NO [facility] 12-28-2023 13:16-0400 Body weight 58.96 kg PHYSICIAN NO [facility] 12-28-2023 13:16-0400 Diastolic blood pressure 97 mm[Hg] PHYSICIAN NO [facility] 12-28-2023 13:16-0400 Heart rate 87 /min PHYSICIAN NO [facility] 12-28-2023 13:16-0400 Systolic blood pressure 141 mm[Hg] PHYSICIAN NO [facility] 12-15-2023 20:35-0500 Diastolic blood pressure 74 mm[Hg] PHYSICIAN NO [facility] 12-15-2023 20:35-0500 Heart rate 65 /min PHYSICIAN NO [facility] 12-15-2023 20:35-0500 Respiratory rate 17 /min PHYSICIAN NO [facility] 12-15-2023 20:35-0500 SaO2% (BldA) [Mass fraction] 98 % PHYSICIAN NO [facility] 12-15-2023 20:35-0500 Systolic blood pressure 123 mm[Hg] PHYSICIAN NO [facility] 12-15-2023 17:13-0500 Body temperature 97.7 [degF] PHYSICIAN NO [facility] 12-15-2023 16:12-0500 Body height 172.72 cm PHYSICIAN NO [facility] 12-15-2023 16:12-0500 Body weight 61.4 kg PHYSICIAN NO [facility] 12-09-2023 11:25-0500 Body height 175.3 cm Mendel Crow APRN-ANDI Work Phone: [facility] 12-09-2023 11:25-0500 Body mass index (BMI) [Ratio] 20 kg/m2 Mendel Crow APRN-MANUFACTURING ASSOCIATE Work Phone: [facility] 12-09-2023 11:25-0500 Body weight 61.42 kg Mendel Crow APRN-MANUFACTURING ASSOCIATE Work Phone: [facility] 12-09-2023 11:25-0500 Diastolic blood pressure 77 mm[Hg] Mendel Crow APRN-MANUFACTURING ASSOCIATE Work Phone: [facility] 12-09-2023 11:25-0500 Heart rate 78 /min Mendel Crow APRN-MANUFACTURING ASSOCIATE Work Phone: [facility] 12-09-2023 11:25-0500 Systolic blood pressure 121 mm[Hg] Mendel Crow APRN-MANUFACTURING ASSOCIATE Work Phone: [facility] Encounters Encounter Date Encounter Type Care Provider Facility Start: 05-04-2024 End: 05-04-2024 ambulatory [facility] Start: 03-24-2024 End: 03-24-2024 ambulatory [facility] Start: 02-02-2024 End: 02-02-2024 ambulatory Imad Asaad Facility:[facility] Start: 02-02-2024 Non-patient / Non-visit PHYSICIAN NO [facility] Work Phone: Start: 02-02-2024 End: 02-02-2024 Admission to same day surgery center PHYSICIAN NO [facility] Work Phone: Start: 02-02-2024 End: 02-02-2024 ambulatory PHYSICIAN NO [facility] Work Phone: Start: 01-15-2024 End: 01-15-2024 ambulatory [facility] Start: 01-15-2024 End: 01-15-2024 Office outpatient new [facility] DOD[facility] Work Phone: [facility] Comment on above: Degenerative disc di sease, lumbar (Primary Dx); Encounter to establish care; Degenerative disc disease, thoracic; Colitis Start: 12-28-2023 End: 12-28-2023 Patient encounter procedure PHYSICIAN NO [facility] Work Phone: Start: 12-15-2023 End: 12-15-2023 Emergency department patient visit Shabnam Silverio Facility:[facility] Start: 12-15-2023 End: 12-15-2023 Emergency department patient visit PHYSICIAN NO [facility] Work Phone: Start: 12-10-2023 End: 12-11-2023 ambulatory MENDELYEFRI [facility] Start: 12-09-2023 End: 12-09-2023 Office outpatient new 30 minutes Mendel Crow TYPESETTING MACHINE TENDER-MANUFACTURING ASSOCIATE Work Phone: [facility] Comment on above: Colitis (Primary Dx) ; Family history of ulcerative colitis; Diarrhea, unspecified type; Encounter to establish care Start: 12-09-2023 End: 12-09-2023 ambulatory MENDEL A CROW [facility] Start: 11-28-2023 End: 11-29-2023 Emergency department patient visit CATALINO Rapp [facility] Start: 11-28-2023 End: 11-29-2023 Emergency department patient visit CATALINO Rapp [facility] Start: 11-28-2023 End: 11-28-2023 Emergency department patient visit NO [facility]CP [facility] Start: 11-17-2023 End: 11-17-2023 Emergency department patient visit NO [facility]CP [facility] Start: 11-14-2023 End: 11-14-2023 Emergency department patient visit NO [facility]CP [facility] Start: 09-02-2022 End: 09-02-2022 ambulatory Lauren Greene Other [employer] Other Start: 09-02-2022 Office outpatient visit 15 minutes Lauren Greene [facility] Start: 08-21-2022 End: 08-21-2022 ambulatory Lauren Greene Other [employer] Other Start: 08-21-2022 Office outpatient ne w 45 minutes Lauren Greene [facility] Start: 08-15-2022 End: 08-15-[address] DESEAN PAZ Facility:[facility] Start: 06-30-2022 End: 06-30-[address] ROMAN HERMAN Facility:[facility] Start: 04-29-2017 End: 04-29-2017 Emergency department patient visit [facility] Procedures Date Procedure Procedure Detail Performing Clinician Start: 03-24-2024 Follow-up visit Follow-up LUIS ALBERTS Start: 02-02-2024 Colonoscopy PHYSICIAN NO FAMILY Start: 01-15-2024 Adult depression scr eening assessment Luis Alberts MD Work Phone: Start: 12-15-2023 Computed tomography of abdomen and pelvis with contrast PHYSICIAN NO FAMILY Start: 03-25-2021 Adult depression scr eening assessment Mendel Crow BRIA-MANUFACTURING ASSOCIATE Work Phone: Plan of Treatment Date Care Activity Detail Author Start: 06-26-2025 DTaP,Tdap and Td Vac cines (7 - Td or Tdap) DTaP,Tdap and Td Vaccines (7 - Td or Tdap) [facility] Start: 01-14-2025 Adult BMI Screening Adult BMI Screen ing [facility] Start: 01-14-2025 Depression Screening Depression Scre ening [facility] Start: 01-14-2025 Tobacco Screening Tobacco Screening [facility] Start: 12-09-2024 Adult BMI Screening Adult BMI Screen ing [facility] Start: 12-09-2024 Tobacco Screening Tobacco Screening [facility] Start: 02-02-2024 End: 02-02-2024 [facility] Start: 01-15-2024 End: 01-15-2024 Patient encounter procedure 01/15/2024 1:00 PM EDT Office Visit [facility] [address] [place] [id number] Luis Alberts MD [address] [facility] [place] [id number] [facility] Start: 06-19-2023 Influenza vaccination Influenza Vacc ine [facility] Start: 03-25-2022 Depression Screening Depression Scre [facility] End: 12-09-2024 C difficile by PCR C difficile by PCR Lab Routine Diarrhea, unspecified type 1 Occurrences starting 12/09/2023 until 12/09/2024 [facility] Work Phone: Comment on above: 1 Occurrences starti ng 12/09/2023 until 12/09/2024 End: 12-09-2024 Calprotectin stool Calprotectin stool Lab Routine Diarrhea, unspecified type 1 Occurrences starting 12/09/2023 until 12/09/2024 [facility] Comment on above: 1 Occurrences starti ng 12/09/2023 until 12/09/2024 Endomysial antibody IgA level [facility] End: 12-09-2024 GI Panel(stool pathogen panel) GI Panel(stool pathogen panel) Lab Routine Diarrhea, unspecified type 1 Occurrences starting 12/09/2023 until 12/09/2024 [facility] Comment on above: 1 Occurrences starti ng 12/09/2023 until 12/09/2024 Gliadin peptide IgA Ab [Units/volume] in Serum [facility] Gliadin peptide IgG Ab [Units/volume] in Serum [facility] HIV 1+2 Ab+HIV1 p24 Ag [Presence] in Serum or Plasma by Immunoassay [facility] IgA [Mass/volume] in Serum or Plasma [facility] Patient Education Abdominal pain [facility] Work Phone: Patient referral [facility] Work Phone: Tissue transglutamin ase IgA Ab [Units/volume] in Serum [facility] Tissue transglutamin ase IgG Ab [Units/volume] in Serum [facility] Immunizations Immunization Date Immunization Notes Care Provider Fa evelin 11-30-2015 influenza virus vaccine, unspecified formulation Mendel Crow APRN-MANUFACTURING ASSOCIATE Work Phone: [facility] Payers Date Payer Category Payer Medicaid [employer] [id number] 2003-Present [phone] [address] [place] [address] [id number] 2002 Unknown [id number] 2002 Unknown [id number] 2002 Unknown [id number] [id number] 2002 Unknown [id number] [id number] 2002 Unknown [id number] [id number] 2002 Unknown [id number] [id number] 2002 Unknown [id number] [id number] 2002 Unknown [id number] [id number] 2002 Unknown [id number] [id number] 2002 Unknown [id number] [id number] 2002 Unknown [id number] [id number].[facility] 2002 Unknown [id number] 1959 Unknown [id number] Social History Date Type Detail Facility Start: 09-17-2020 End: 10-31-2020 Sex Assigned At [facility] Start: 11-14-2023 End: 02-02-2024 Tobacco smoking status NHIS Never smoked tobacco [facility] Start: 11-14-2023 Tobacco use and exposure Smoke less tobacco non-user [facility] Start: 12-09-2023 End: 01-15-2024 Alcohol intake Ex-drinker (finding) [facility] Start: 10-31-2020 End: 12-09-2023 Alcohol intake [facility] Frequency of Alcohol Consumption Never [facility] Start: 12-09-2023 Alcohol Comment socially [facility] Start: 2000 Sex Assigned At Not on file P [facility] Start: 2002 Sex Assigned At Male F [facility] Goals Date Patient Goal Desired Activity /State Clinical Notes 08-21-2022 to 02-02-2024 Barbie Jolley - 01/15/2024 1:00 PM Domenico Alberts MD - 01/15/2024 1:00 PM TOREY Verdugo - 12/09/2023 11:30 AM EST Note Date & Type Note Facility 02-02-2024 Procedure note [facility] 01-15-2024 History of Present illness Narrative Images from the original note were not included. [address] [place] [address] [facility] [id number] Patient: Gulshan Mcpherson Date of : 2000 Encounter Date: 01/15/2024 SUBJECTIVE: HISTORY OF PRESENT ILLNESS: Chief Complaint: Chief Complaint Patient presents with [facility] Patient ID: Gulshan is a 23 y.o. male presenting to [facility] after his previous PCP retired. Patient has concerns for colitis and is due for a colonoscopy on February 01. He follows-up with a Rim[facility].I. Patient also has concerns for back pain- imaging showed degenerative disc changes. He will follow-up about those issues at his next appointment. PAST MEDICAL HISTORY: Past Medical History: Diagnosis Date ADHD (attention deficit hyperactivity disorder) Allergic Asthma Back pain Seizures (CMS-HCC) PAST SURGICAL HISTORY: Past Surgical History: Procedure Laterality Date SKIN GRAFT 6 months old FAMILY HISTORY: Family History Problem Relation Age of Onset Asthma Mother Ulcerative colitis Mother Heart disease Father Back Problems Father Heart attack Father Stents placed Alcohol abuse Maternal Grandmother Diabetes Maternal Grandfather Stroke Maternal Grandfather Heart disease Maternal Grandfather Ulcerative colitis Maternal Grandfather Diabetes Paternal Grandmother Stroke Paternal Grandfather SOCIAL HISTORY: Social History Socioeconomic History Marital status: Single Spouse name: Not on file Number of children: Not on file Years of education: Not on file Highest education level: Not on file Occupational History Not on file Tobacco Use Smoking status: Never Smokeless tobacco: Never Vaping Use Vaping Use: Never used Substance and Sexual Activity Alcohol use: Not Currently Alcohol/week: 5.0 standard drinks of alcohol Types: 5 Shots of liquor per week Comment: socially Drug use: Not Currently Types: Marijuana Sexual activity: Not Currently Partners: Female control/protection: Condom Other Topics Concern Not on file Social History Narrative Not on file Social Determinants of Health Financial Resource Strain: Not on file Food Insecurity: No Food Insecurity (01/15/2024) Hunger Screening Food Insecurity - Worry: Never True Food Insecurity - Inability: Never True Transportation Needs: Not on file Physical Activity: Not on file Stress: Not on file Social Connections: Not on file Interpersonal Safety: Not on file Housing Instability: Not on file ALLERGY: No Known Allergies MEDICATIONS Current Outpatient Medications Medication Sig Dispense Refill dextroamphetamine-amphetamine (ADDERALL) 15 mg tablet Take 1 tablet (15 mg total) by mouth in the morning and 1 tablet (15 mg total) before bedtime. hyoscyamine (LEVSIN) 0.125 mg SL tablet Take 1 tablet (125 mcg total) by mouth in the morning. (Patient not taking: Reported on 01/15/2024) ondansetron ODT (ZOFRAN ODT) 4 mg disintegrating tablet Dissolve 1 tablet (4 mg total) on tongue daily as needed for nausea or vomiting. (Patient not taking: Reported on 01/15/2024) No current facility-administered medications for this visit. PHYSICAL EXAMINATION: Vitals: 01/15/24 1322 BP: 128/74 Pulse: 78 Temp: 36.8 C (98.3 F) SpO2: 98% Weight: 62.6 kg (138 lb) Height: 175.3 cm (5' 9 ) Physical Exam Constitutional: Appearance: Normal appearance. He is normal weight. Cardiovascular: Rate and Rhythm: Normal rate and regular rhythm. Pulses: Normal pulses. Heart sounds: Normal heart sounds. Pulmonary: Effort: Pulmonary effort is normal. Breath sounds: Normal breath sounds. Abdominal: General: Abdomen is flat. There is no distension. Palpations: Abdomen is soft. There is no mass. Tenderness: There is no abdominal tenderness. There is no guarding or rebound. Skin: General: Skin is warm and dry. Neurological: Mental Status: He is alert. Psychiatric: Mood and Affect: Mood normal. Behavior: Behavior normal. Labs, imaging, and records: I have personally obtained and reviewed the relevant labs/imaging. ASSESSMENT/PLAN: Gulshan was seen today for establish care. Diagnoses and all orders for this visit: Encounter to establish care - [facility] [place] Barbie Jolley, MS3 Family Medicine Physician [facility] Medicine / [facility] 01/15/24 This note was completed with voice recognition software. The document was reviewed for errors however some may still be present. Please do not hesitate to contact/Epic msg the author to verify any questions/concerns. Images from the original note were not included. [address] [place] [id number] Patient: Gulshan Mcpherson Date of : 2000 Encounter Date: 01/15/2024 SUBJECTIVE: HISTORY OF PRESENT ILLNESS: Chief Complaint: Chief Complaint Patient presents with [facility] Patient ID: Gulshan is a 23 y.o. male presenting [facility] after his previous PCP retired. Here today with Mother One provider works in expressed concern they are trying to make a to a appointment. No acute concerns to share today Records reviewed and patient was recently admitted for episode of colitis suspicious for inflammatory versus infectious colitis. Infectious workup was essentially negative. Patient also has notable findings on CT abdomen of significant degenerative disc disease. Mom and patient sugar extensive family history of congenital arthritic back pains. He follows-up with a Latisha. Patient also has concerns for back pain- imaging showed degenerative disc changes. He will follow-up about those issues at his next appointment. PAST MEDICAL HISTORY: Past Medical History: Diagnosis Date ADHD (attention deficit hyperactivity disorder) Allergic Asthma Back pain Seizures (CMS-HCC) PAST SURGICAL HISTORY: Past Surgical History: Procedure Laterality Date SKIN GRAFT 6 months old FAMILY HISTORY: Family History Problem Relation Age of Onset Asthma Mother Ulcerative colitis Mother Heart disease Father Back Problems Father Heart attack Father Stents placed Alcohol abuse Maternal Grandmother Diabetes Maternal Grandfather Stroke Maternal Grandfather Heart disease Maternal Grandfather Ulcerative colitis Maternal Grandfather Diabetes Paternal Grandmother Stroke Paternal Grandfather SOCIAL HISTORY: Social History Socioeconomic History Marital status: Single Spouse name: Not on file Number of children: Not on file Years of education: Not on file Highest education level: Not on file Occupational History Not on file Tobacco Use Smoking status: Never Smokeless tobacco: Never Vaping Use Vaping Use: Never used Substance and Sexual Activity Alcohol use: Not Currently Alcohol/week: 5.0 standard drinks of alcohol Types: 5 Shots of liquor per week Comment: socially Drug use: Not Currently Types: Marijuana Sexual activity: Not Currently Partners: Female control/protection: Condom Other Topics Concern Not on file Social History Narrative Not on file Social Determinants of Health Financial Resource Strain: Not on file Food Insecurity: No Food Insecurity (01/15/2024) Hunger Screening Food Insecurity - Worry: Never True Food Insecurity - Inability: Never True Transportation Needs: Not on file Physical Activity: Not on file Stress: Not on file Social Connections: Not on file Interpersonal Safety: Not on file Housing Instability: Not on file ALLERGY: No Known Allergies MEDICATIONS Current Outpatient Medications Medication Sig Dispense Refill dextroamphetamine-amphetamine (ADDERALL) 15 mg tablet Take 1 tablet (15 mg total) by mouth in the morning and 1 tablet (15 mg total) before bedtime. hyoscyamine (LEVSIN) 0.125 mg SL tablet Take 1 tablet (125 mcg total) by mouth in the morning. (Patient not taking: Reported on 01/15/2024) ondansetron ODT (ZOFRAN ODT) 4 mg disintegrating tablet Dissolve 1 tablet (4 mg total) on tongue daily as needed for nausea or vomiting. (Patient not taking: Reported on 01/15/2024) No current facility-administered medications for this visit. PHYSICAL EXAMINATION: Vitals: 01/15/24 1322 BP: 128/74 Pulse: 78 Temp: 36.8 C (98.3 F) SpO2: 98% Weight: 62.6 kg (138 lb) Height: 175.3 cm (5' 9 ) Physical Exam Constitutional: Appearance: He is well-developed. He is not ill-appearing. HENT: Head: Normocephalic. Right Ear: External ear normal. Left Ear: External ear normal. Nose: Nose normal. Eyes: General: No scleral icterus. Extraocular Movements: Extraocular movements intact. Conjunctiva/sclera: Conjunctivae normal. Pupils: Pupils are equal, round, and reactive to light. Cardiovascular: Rate and Rhythm: Normal rate and regular rhythm. Heart sounds: Normal heart sounds. No murmur heard. Pulmonary: Effort: Pulmonary effort is normal. Breath sounds: Normal breath sounds. No wheezing. Abdominal: General: Bowel sounds are normal. Palpations: Abdomen is soft. There is no mass. Tenderness: There is no abdominal tenderness. There is no guarding. Musculoskeletal: Cervical back: Normal range of motion and neck supple. Lymphadenopathy: Cervical: No cervical adenopathy. Neurological: Mental Status: He is alert and oriented to person, place, and time. Cranial Nerves: No cranial nerve deficit. Coordination: Coordination normal. Psychiatric: Behavior: Behavior normal. Labs, imaging, and records: I have personally obtained and reviewed the relevant labs/imaging. ASSESSMENT/PLAN: Gulshan was seen today for establish care. Diagnoses and all orders for this visit: Degenerative disc disease, lumbar Encounter to establish care - [facility] - [place], [place] Degenerative disc disease, thoracic Colitis 23-year-old gentleman here to establish care with primary care provider Current history of inflammatory versus infectious colitis in addition to degenerative disc disease highly suspicious for HLA B27 related illness Low threshold for rheumatology referral. Overall patient's symptoms are relatively mild as his colitis symptoms have healed and he has no significant back pain. He only intermittently uses NSAIDs for pain control. Although CT abdomen imaging does show degenerative disc disease of both thoracolumbar regions. Atypical for patient of this age. LUIS ALBERTS MD Family Medicine Physician [facility] 01/16/24 This note was completed with voice recognition software. The document was reviewed for errors however some may still be present. Please do not hesitate to contact/Epic msg the author to verify any questions/concerns. documented in this encounter [facility] 12-09-2023 History of Present illness Narrative Images from the original note were not included. Chief Complaint: Colitis History of Present Illness Gulshan Mcpherson is a 23 y.o. male who presents to the office after being seen in the [facility] ED on 3 separate occasions for right lower back pain. CT abdomen and pelvis was performed on 11/28/2023 and was significant for mild wall thickening of ascending colon. WBCs were mildly elevated at 11.3, CMP and CRP were normal. He was discharged on Cipro and Flagyl. He states he was feeling better so he stopped taking the antibiotics. He then started to feel worse again so he presented to the [facility] ED 2 days ago. He states they repeated the CT scan. I do not have records of this, but he states it showed inflammation of his colon. They discharged him on hyoscyamine. This is providing him with some relief. He denies any fevers or chills. He denies any bloody stools. He reports diarrhea for the past week. He has been tolerating clear liquids. He states his pain is not that bad today, but still there. There is a family history of ulcerative colitis in his maternal grandfather. His mother also has acute episodes of colitis. His mother is with him in the office today. Review of Systems Constitutional: Negative for fever and unexpected weight change. HENT: Negative for trouble swallowing. Respiratory: Negative for shortness of breath. Cardiovascular: Negative for chest pain. Gastrointestinal: Positive for nausea, abdominal pain and diarrhea. Negative for vomiting, constipation, blood in stool and black tarry stool. Genitourinary: Negative for dysuria and difficulty urinating. Musculoskeletal: Positive for back pain. Negative for gait problem. Skin: Negative for rash and wound. Neurological: Negative for dizziness, weakness and light-headedness. Hematological: Does not bruise/bleed easily. Psychiatric/Behavioral: Negative for confusion. Past Medical History: Diagnosis Date ADHD (attention deficit hyperactivity disorder) Allergic Asthma Back pain Seizures (CMS-HCC) Past Surgical History: Procedure Laterality Date SKIN GRAFT 6 months old No Known Allergies Current Outpatient Medications: ciprofloxacin HCl (CIPRO) 500 mg tablet, Take 1 tablet (500 mg total) by mouth in the morning and 1 tablet (500 mg total) before bedtime. Do all this for 10 days., Disp: 20 tablet, Rfl: 0 dextroamphetamine-amphetamine (ADDERALL) 15 mg tablet, Take 1 tablet (15 mg total) by mouth in the morning and 1 tablet (15 mg total) before bedtime., Disp: , Rfl: hyoscyamine (LEVSIN) 0.125 mg SL tablet, Take 1 tablet (125 mcg total) by mouth in the morning., Disp: , Rfl: metroNIDAZOLE (FLAGYL) 500 mg tablet, Take 1 tablet (500 mg total) by mouth in the morning and 1 tablet (500 mg total) before bedtime. Do all this for 10 days., Disp: 20 tablet, Rfl: 0 ondansetron ODT (ZOFRAN ODT) 4 mg disintegrating tablet, Dissolve 1 tablet (4 mg total) on tongue daily as needed for nausea or vomiting., Disp: , Rfl: Social History Socioeconomic History Marital status: Single Spouse name: Not on file Number of children: Not on file Years of education: Not on file Highest education level: Not on file Occupational History Not on file Tobacco Use Smoking status: Never Smokeless tobacco: Never Vaping Use Vaping Use: Every day Substances: Nicotine Devices: Disposable Substance and Sexual Activity Alcohol use: Not Currently Alcohol/week: 5.0 standard drinks of alcohol Types: 5 Shots of liquor per week Comment: socially Drug use: Not Currently Types: Marijuana Sexual activity: Not Currently Partners: Female control/protection: Condom Other Topics Concern Not on file Social History Narrative Not on file Social Determinants of Health Financial Resource Strain: Not on file Food Insecurity: No Food Insecurity (12/09/2023) Hunger Screening Food Insecurity - Worry: Never True Food Insecurity - Inability: Never True Transportation Needs: Not on file Physical Activity: Not on file Stress: Not on file Social Connections: Not on file Interpersonal Safety: Not on file Housing Instability: Not on file Family History Problem Relation Age of Onset Asthma Mother Ulcerative colitis Mother Heart disease Father Back Problems Father Heart attack Father Stents placed Alcohol abuse Maternal Grandmother Diabetes Maternal Grandfather Stroke Maternal Grandfather Heart disease Maternal Grandfather Ulcerative colitis Maternal Grandfather Diabetes Paternal Grandmother Stroke Paternal Grandfather Objective Physical Exam Constitutional: General: He is not in acute distress. Appearance: Normal appearance. He is not ill-appearing. HENT: Head: Normocephalic and atraumatic. Mouth/Throat: Mouth: Mucous membranes are moist. Eyes: Pupils: Pupils are equal, round, and reactive to light. Cardiovascular: Rate and Rhythm: Normal rate and regular rhythm. Pulmonary: Effort: Pulmonary effort is normal. No respiratory distress. Abdominal: General: Bowel sounds are normal. There is no distension. Palpations: Abdomen is soft. Tenderness: There is abdominal tenderness in the right lower quadrant. There is no guarding. Musculoskeletal: General: Normal range of motion. Comments: Right lower back pain Skin: General: Skin is warm and dry. Neurological: Mental Status: He is alert and oriented to person, place, and time. Mental status is at baseline. Vital Signs: Blood pressure 121/77, pulse 78, height 175.3 cm (5' 9 ), weight 61.4 kg (135 lb 6.4 oz). Respiratory Source: No data recorded Admission Weight: Weight: 61.4 kg (135 lb 6.4 oz) Labs Lab Results Component Value Date WBC 11.3 (H) 11/28/2023 HGB 15.6 11/28/2023 HCT 45.1 11/28/2023 MCV 85 11/28/2023 PLT 326 11/28/2023 Lab Results Component Value Date GLU 100 (H) 11/28/2023 CALCIUM 9.6 11/28/2023 K 4.3 11/28/2023 CO2 27 11/28/2023 CL 101 11/28/2023 BUN 21 11/28/2023 CREATININE 1.15 11/28/2023 No results found for: AMYLASE No results found for: LIPASE Lab Results Component Value Date ALT 13 11/28/2023 AST 19 11/28/2023 ALKPHOS 71 11/28/2023 No results found for: INR , PROTIME Imaging CT abdomen and pelvis from 11/28/2023: FINDINGS: Evaluation of the solid viscera and [...] or infectious colitis. Clinical correlation is recommended. Assessment Gulshan Mcpherson is a 23 y.o.male with colitis. Plan Inflammatory vs infectious colitis seen on CT scan with family history of ulcerative colitis - patient would like to see GI. Referral placed. Check C-diff and GI panel to rule out infectious cause. Stool calprotectin. Finish antibiotic course, take with food as this could be giving him some GI distress. Continue light diet and advance as tolerated. Patient would also like referral to get establish with family physician. Evaluation included: Preparing to see the patient (e.g., review of tests) Obtaining and/or reviewing separately obtained history Performing a medically appropriate examination and/or evaluation Counseling and educating the patient/family/caregiver Referring and communicating with other health residential child care counselor Colitis [K52.9] TOREY BAILEY [facility] General Surgery [place] This note was created with the assistance of a speech recognition program. While intending to generate a timely document that accurately reflects the content of the visit, no guarantee can be provided that every grammatical or spelling mistake has been or will be identified or corrected. Thank you for your understanding. TOREY Bailey 12/09/23 1307 documented in this encounter [facility] 09-02-2022 Evaluation note Encounter Date Diagnosis Assessment Notes Aug, Acute right ankle pain (ICD-10 - M25.571) Aug, Sprain of right ankle, unspecified ligament, initial encounter (ICD-10 - S93.401A) Patient instructed to start working on motion out of the CAM walker boot. He may also transition into a regular shoe. He may return to work tomorrow. [facility] Other 11-03-2022 Evaluation note* Encounter Date Diagnosis Assessment Notes Treatment Notes Treatment Clinical Notes Aug, Acute right ankle pain (ICD-10 [...] f/u with the patient in 2 weeks. [facility] Other Evaluation note* Diagnosis Colitis- Primary Other and unspecified noninfectious gastroenteritis and colitis Family history of ulcerative colitis Diarrhea, unspecified type Encounter to establish care [facility] Diagnosis Degenerative disc disease, lumbar- Primary Encounter to establish care Degenerative disc disease, thoracic Colitis Other and unspecified noninfectious gastroenteritis and colitis documented in this encounter [facility]* Diagnosis Onset Date Resolution Status Colitis acute Right lower quadrant abdominal pain noneactive [facility] Work Phone: History general Narrative - Reported* Type Description Date Medical History allergies Surgical History skin graft [facility] Other Hospital Discharge instructions Additional Instructions DISCHARGE INSTRUCTIONS FOR COLONOSCOPY WHAT TO EXPECT: - You may feel full, gassy or cramping after your procedure. In some cases, this may be from a few hours to a day. Walking may help relieve the discomfort. - If you have polyp(s) removed you may note some minor bloody discharge after your first bowel movements. - You should begin to recover from anesthesia within 1 hour of the procedure, however may feel groggy for the next 24 hours. DO's AND DON'Ts: - Call your doctor right away if you have a hard abdomen, severe pain, are passing lots of bright red blood or clots. - Call your doctor if you develop any rashes, hives or difficulty breathing. - Let your doctor know if you have not had a bowel movement by 3 days after your procedure. - If you take 81 mg aspirin for your heart it is safe to resume this medication. - If you take other blood thinner medications your doctor will instruct you when these can safely be resumed. - Do NOT drive for 24 hours. - Do NOT operate machinery such as power tools, lawn mowers, snow blowers, sewing machines, etc. for 24 hours. - Avoid alcoholic beverages and drugs for allergies, nerves, or sleep. - Do NOT stay alone. Do NOT leave your child unattended. - Do NOT make important personal or business decisions or sign any legal documents. - Eat solid foods and drink liquids in smaller amounts than usual until normal appetite returns. If you should experience an upset stomach, liquids high in sugar content (soda, Jameson-Aid, non-acid juices) are recommended. - You can resume normal activities tomorrow. FOLLOW UP & RECOMMENDATIONS: -Notify the doctor if you have any problems. -Follow-up in office as scheduled -Office number [phone]. [facility] Work Phone: InstructionsNot on filedocumented in this encounter [facility]InstructionsNot on filedocumented in this encounter [facility] SystemReason for referral (narrative)* Consultation (Routine) - Pending Review Specialty Diagnoses / Procedures Referred By Omaira drummond Referred To Contact Family Medicine Diagnoses Encounter to establish care Mendel Crow APRN-CNP [address] [place] [address] Luis Alberts MD [address] [place] [address] Referral ID Status Reason Start Date Expiration Date Visits Requested Visits Authorized [id number] Pending Review Specialty Services Required 12/09/2023 12/08/2024 1 1 Electronically signed by Mendel Crow APRNEDWARD [facility] at 12/09/2023 11:54 AM EST * Consultation (Routine) - Pending Review Specialty Diagnoses / Procedures Referred By Omaira drummond Referred To Contact Gastroenterology Diagnoses Colitis Family history of ulcerative colitis Mendel Crow APRN-MANUFACTURING ASSOCIATE [address] [place] [address] Rene Cramer MD [address] [id number] Referral ID Status Reason Start Date Expiration Date Visits Requested Visits Authorized [id number] Pending Review Specialty Services Required 12/09/2023 12/08/2024 1 1 [facility] Summary Purpose Family History No Family History Records Found Relationship Condition Age at Onset Recorded Date/T sarah father Myocardial infarction Unknown History of coronary artery stent placement Unknown Not Specified Colitis Unknown Advance Directives No Advanced Directives Records Found Advance Directive Response Recorded Date/ Time Advance Directives No November 5:36pm Chief Complaint and Reason for Visit Chief Complaint not eating, abd pain Colitis colitis/abd pain/diarrhea colitis/abd pain/diarrhea Reason for Visit Colitis Right lower quadrant abdominal pain Additional Source Comments (unrecognized sect ion and content) No Status Records FoundNo Status Records FoundNo Status Records FoundNo Status Records FoundNo Status Records Found INFORMATION SOURCE (unrecogn ized section and content) DATE CREATED AUTHOR 04/14/2018 [facility] DATE CREATED AUTHOR AUTHOR'S ORGANIZ ATION 08/18/2022 [facility] DATE CREATED AUTHOR AUTHOR'S ORGANIZ ATION 12/18/2023 [facility] DATE CREATED AUTHOR AUTHOR'S ORGANIZ ATION 02/05/2024 [facility] DATE CREATED AUTHOR AUTHOR'S ORGANIZ ATION 05/08/2024 [facility] REASON FOR VISIT (unrecogniz ed section and content) Reason Comments Ulcerative Colitis Colitis, H ER 11/28 Reason Comments Establish Care Specialty Diagnoses / Procedures Referred By Omaira drummond Referred To Contact Family Medicine Diagnoses Encounter to establish care Mendel Crow APRN-CNP [address] [place] [address] Luis Alberts MD [address] [facility] [place] [address] Referral ID Status Reason Start Date Expiration Date Visits Requested Visits Authorized [id number] Pending Review Specialty Services Required 12/09/2023 12/08/2024 1 1 Care Teams (unrecognized sec tion and content) [employer] Automotive Technician Relationship Specialty Start Date End Date No Pcp, [place] [address] PCP - General Family Medicine 11/14/23 [employer] Automotive Technician Relationship Specialty Start Date End Date Luis Alberts MD [address] [facility] [place] [address] PCP - General Internal Medicine 01/15/24 Team Status: Active Member Role Status Dates PHYSICIAN NO FAMILY Primary Care Provider Active Team Status: Inactive Member Role Status Dates PHYSICIAN NO FAMILY Primary Care Provider Active Start: December 15, 2023 End: December 15, 2023 Shabnam Silverio APRN Emergency Provider Active Start: December 15, 2023 End: December 15, 2023 Team Status: Inactive Member Role Status Dates Laquita Cisneros MD Attending Provider Active Start: December 28, 2023 End: December 28, 2023 PHYSICIAN NO FAMILY Primary Care Provider Active Start: December 28, 2023 End: December 28, 2023 Team Status: Inactive Member Role Status Dates PHYSICIAN NO FAMILY Primary Care Provider Active Start: February 02, 2024 End: February 02, 2024 Laquita Cisneros MD Attending Provider Active Start: February 02, 2024 End: February 02, 2024 Team Status: Active Member Role Status Dates PHYSICIAN NO FAMILY Primary Care Provider Active Start: February 02, 2024 Laquita Cisneros MD Attending Provider, Other Provider Act patricia Start: February 02, 2024 FOR RECORDS PERTAINING TO PATIENTS WHO ARE [...] BE BASED ON THE PRIMARY CLINICAL RECORDS. [facility]. provides no warranty or guarantee of the accuracy or completeness of information in this document.
--- NOTE | 2024-09-19 13:11 | CT_ITS ---
[address] [address] Patient Name: LULÚ REAL MRN: [id number] date: 2000 Sex: M Assigned Patient Location: ER Current Patient Location: ER Accession/Order Number: [id number] Exam Date: 09/19/2024 13:26 Report Date: 09/19/2024 14:14 At the request of: TAMIKA JENKINS Procedure: CT abdomen pelvis w con EXAMINATION: CT abdomen pelvis w con HISTORY: Abdominal pain, right sided ; nausea, vomiting, pain with urination COMPARISON: CT abdomen pelvis 12/08/2023 TECHNIQUE: Axial, Coronal, and Sagittal images were obtained without and/or with IV contrast as indicated by examination type. Dose reduction techniques were achieved by using automated exposure control and/or adjustment of mA and/or kV according to patient size and/or use of iterative reconstruction technique. FINDINGS: LUNG BASES: No visible pulmonary or pleural disease. LIVER: No enlargement, atrophy, suspicious density, or significant focal lesion. BILIARY: No dilatation or calcification. PANCREAS: No lesion, fluid collection, or abnormal duct dilatation. SPLEEN: No enlargement or focal lesion. ADRENALS: No mass or enlargement. KIDNEYS: No mass, obstruction, or calcification. BOWEL/MESENTERY: Empty colon with slightly edematous and borderline wall thickening. No free air, free fluid, or mesenteric lymphadenopathy. Normal appendix. AORTA/VASCULAR: No aneurysm or dissection. RETROPERITONEUM: No mass or adenopathy. LYMPH NODES: No adenopathy. URINARY BLADDER: No visible focal wall thickening, lesion, or calculus. PELVIC ORGANS: No visible mass. Pelvic organs appropriate for patient age. ABDOMINAL WALL: No mass or hernia. BONES: No bony lesion or fracture. OTHER: Negative. CT/CT abdomen pelvis w con IMPRESSION: 1. Empty colon with slightly edematous wall thickening. Mild colitis? 2. Otherwise unremarkable abdomen and pelvis. Electronically authenticated by: SORAYA HAZEL Date: 09/19/2024 14:14
--- NOTE | 2024-09-19 13:12 | ED_ITS ---
HPI - Abdominal Pain General Chief Complaint: Abdominal Pain Stated Complaint: abdominal pain Time Seen by Provider: 09/19/24 13:02 Source: family Mode of arrival: walk-in Limitations: no limitations History of Present Illness HPI narrative: Patient is a 24-year-old male brought to the emergency department by his father for a several day history of pain in the right side of the abdomen with some radiation to the back. Patient reports associated nausea and vomiting. He had similar symptoms earlier this year in November and was seen in this emergency department with an unremarkable workup. He had an outpatient follow-up with a GI doctor, father at bedside states that he did not accompany the patient to this appointment but the patient was not able to be diagnosed in terms of his abdominal pain. He completed a course of antibiotics and did have improvement of his pain. Pain returned in the last several days. Patient is very frustrated and states he needs a diagnosis today. Father is questioning if he has an ulcer. Patient had a colonoscopy several months ago that was unremarkable and states that he was told that he had a stomach bug . Father questions this diagnosis because the patient lost 20 to 30 pounds and was put on a liquid diet. No previous abdominal surgeries. No fevers or upper respiratory symptoms. Related Data Home Medications ?Medication ?Instructions ?Recorded ?Confirmed dextroamphetamine-amphetamine 15 7.5 mg PO BID 12/07/23 12/07/23 mg tablet Previous Rx's ?Medication ?Instructions ?Recorded ondansetron 4 mg disintegrating 4 mg PO Q6H PRN nausea and 12/08/23 tablet vomiting #20 tabs amoxicillin 875 mg-potassium 1 tab PO BID #14 tabs 09/19/24 clavulanate 125 mg tablet dicyclomine 20 mg tablet 20 mg PO QID PRN abdominal pain 09/19/24 #12 tabs ketorolac 10 mg tablet 10 mg PO TID PRN pain #10 tabs 09/19/24 ondansetron 4 mg disintegrating 4 mg PO Q6H PRN nausea and 09/19/24 tablet vomiting #12 tabs Allergies Allergy/AdvReac Type Severity Reaction Status Date / Time No Known Drug Allergies Allergy Verified 09/19/24 12:56 Review of Systems ROS Constitutional Denies: fever or chills Ears, nose, mouth, and throat Denies: throat pain Cardiovascular Denies: chest pain Respiratory Denies: shortness of breath Gastrointestinal Reports: abdominal pain, nausea and vomiting; Denies: diarrhea Genitourinary Denies: painful urination Musculoskeletal Denies: back pain or neck pain Integumentary/Breast Denies: rash Neurological Denies: numbness in extremities or weakness in extremities Hematologic/Lymphatic Denies: easy bruising or easy bleeding PFSH [facility] Social History Smoking status: Current every day smoker Little interest or pleasure in doing things: not at all Feeling down, depressed, or hopeless: not at all Exam Narrative Exam Narrative: Gen.: Awake, alert, in no distress Head: Normocephalic, atraumatic ENT: Moist mucous membranes Respiratory: No respiratory distress, lungs clear bilaterally Cardio: Regular rate and rhythm Gastrointestinal: Abdomen is soft, nondistended and tender to palpation in the suprapubic and right lower quadrant with no guarding or rebound. Minimal flank tenderness. Extremities: Moves extremities equally Psych: Normal mood and affect Neuro: No focal neuro deficit Skin: Warm, dry, intact Constitutional Vital Signs, click to edit/add: Last Vital Signs Temp 98.1 F 09/19/24 12:51 Pulse 100 H 09/19/24 12:51 Resp 20 09/19/24 12:51 BP 136/81 09/19/24 12:51 Pulse Ox 99 09/19/24 12:51 O2 Del Method Room Air 09/19/24 12:51 Course Vital Signs Vital signs: Vital Signs Temperature 98.1 F 09/19/24 12:51 Pulse Rate 100 H 09/19/24 12:51 Respiratory Rate 20 09/19/24 12:51 Blood Pressure 136/81 09/19/24 12:51 Pulse Oximetry 99 09/19/24 12:51 Oxygen Delivery Method Room Air 09/19/24 12:51 Temperature 98.1 F 09/19/24 12:51 Pulse Rate 100 H 09/19/24 12:51 Respiratory Rate 20 09/19/24 12:51 Blood Pressure 136/81 09/19/24 12:51 Pulse Oximetry 99 09/19/24 12:51 Oxygen Delivery Method Room Air 09/19/24 12:51 MDM - Abdominal Pain MDM Narrative Medical decision making narrative: Laboratory studies reviewed and noted showing minimal leukocytosis with no bandemia, normal inflammatory markers and unremarkable electrolytes, liver function testing, lactic acid and lipase. Patient was medicated with IV Zofran, Toradol and Levsin. Abdomen is soft and benign in the ER. CT of the abdomen and pelvis shows slightly edematous wall thickening of the colon, radiologist questions possible colitis. Given the patient's right-sided abdominal pain and recurrent symptoms, he will be treated with a 7-day course of Augmentin for coverage of colitis, Toradol, Bentyl and Zofran for home. Patient and family made aware of the limitations of emergency room testing for recurrent abdominal pain and the patient may need to see a GI specialist as an outpatient, they are given a referral. Return to the ER if symptoms change or worsen. SHARED APC VISIT, PHYSICIAN ATTESTATION: [id number] I performed a substantive part of the MDM during the patient?s E/M visit. I personally evaluated and examined the patient. I personally made or approved the documented management plan and acknowledge its risk of complications. Medical Records Attestation: I reviewed the patient's medical records. Lab Data Attestation: I reviewed the patient's lab results. Labs: Lab Results 09/19/24 Range/Units 13:43 WBC 11.6 H (4.0-11.0) 10^3/uL RBC 5.45 (4.70-6.10) 10^6/uL Hgb 15.3 (14.0-18.0) g/dL Hct 45.4 (42.0-54.0) % MCV 83.3 (80.0-94.0) fL MCH 28.1 (25.9-34.0) pg MCHC 33.7 (29.9-35.2) g/dL RDW 12.2 (11.0-15.0) % Plt Count 284 (150-450) 10^3/uL MPV 9.3 L (9.5-13.5) fL Neut % (Auto) 88.2 H (43.0-75.0) % Lymph % (Auto) 6.8 L (20.5-60.0) % [place] % (Auto) 3.6 (1.7-12.0) % Eos % (Auto) 0.9 (0.9-7.0) % Baso % (Auto) 0.2 (0.2-2.0) % Neut # (Auto) 10.2 H (1.4-6.5) 10^3/uL Lymph # (Auto) 0.8 L (1.2-3.8) 10^3/uL [place] # (Auto) 0.4 (0.3-0.8) 10^3/uL Eos # (Auto) 0.1 (0.0-0.7) 10^3/uL Baso # (Auto) 0.0 (0.0-0.1) 10^3/uL Abs Immat Gran (auto) 0.03 (0.00-0.03) 10^3/uL Imm/Tot Granulo (auto) 0.3 (0.0-0.5) % ESR 9 (<=15) mm/hr Sodium 137 (136-145) mmol/L Potassium 4.4 (3.5-5.1) mmol/L Chloride 101 (98-107) mmol/L Carbon Dioxide 24.0 (21.0-32.0) mmol/L Anion Gap 16.4 BUN 16.0 (7.0-18.0) mg/dL Creatinine 1.06 (0.70-1.30) mg/dL Est GFR ( Amer) >60 (>=60 mL/min/1.73m^2) Est GFR (Non-Af Amer) >60 (>=60 mL/min/1.73m^2) BUN/Creatinine Ratio 15.1 Glucose 101 (74-106) mg/dL Lactate 1.3 (0.4-2.0) mmol/L Calcium 9.4 (8.5-10.1) mg/dL Total Bilirubin 0.8 (0.2-1.0) mg/dL AST 13 L (15-37) U/L ALT 21 (16-63) U/L Alkaline Phosphatase 95 (46-116) U/L C-Reactive Protein <0.50 (<=0.50) mg/dL Total Protein 7.6 (6.4-8.2) g/dL Albumin 4.0 (3.4-5.0) g/dL Globulin 3.6 g/dL Albumin/Globulin Ratio 1.1 Lipase 13.0 L (16.0-77.0) U/L Imaging Data CT scan - abdomen: Attestation: I have reviewed the pertinent imaging results. Radiologist's impression: ITS Impressions Abdomen/Pelvis CT 09/19/24 13:11 IMPRESSION: 1. Empty colon with slightly edematous wall thickening. Mild colitis? 2. Otherwise unremarkable abdomen and pelvis. Electronically authenticated by: SORAYA HAZEL Date: 09/19/2024 14:14 Discharge Plan Discharge Chief Complaint: Abdominal Pain Clinical Impression: Abdominal pain, Colitis Patient Disposition: Home, Self-Care Time of Disposition Decision: 14:35 Condition: Good Prescriptions / Home Meds: New ketorolac 10 mg tablet 10 mg PO TID PRN (Reason: pain) Qty: 10 0RF dicyclomine 20 mg tablet 20 mg PO QID PRN (Reason: abdominal pain) Qty: 12 0RF ondansetron 4 mg tablet,disintegrating 4 mg PO Q6H PRN (Reason: nausea and vomiting) Qty: 12 0RF amoxicillin-pot clavulanate 875-125 mg tablet 1 tab PO BID Qty: 14 0RF No Action dextroamphetamine-amphetamine 15 mg tablet 7.5 mg PO BID ondansetron 4 mg tablet,disintegrating 4 mg PO Q6H PRN (Reason: nausea and vomiting) Qty: 20 0RF Print Language: Botswanan Instructions: Acute Abdominal Pain (ED), Colitis (ED) Referrals: MECHELLE HARDEN [Physician] - As needed Physician,Non-Staff, MD [Primary Care Provider] - 1 week
[2024-09-19] MEDS: ONDANSETRON PF 4 MG/2 ML VIAL IV (13:38)
[2024-09-19] MEDS: KETOROLAC TROMETHAMINE 30 MG/ML VIAL IVP (13:38)
[2024-09-19] MEDS: HYOSCYAMINE SULFATE 0.125 MG TAB.SUBL SL (13:38)
[2024-09-19 13:48] LABS: Basophils Percent Auto 0.2 % (0.2-2.0); Eosinophils Absolute Auto 0.1 10^3/uL (0.0-0.7); Eosinophils Percent Auto 0.9 % (0.9-7.0); Hematocrit 45.4 % (42.0-54.0); Hemoglobin 15.3 g/dL (14.0-18.0); Immature Granulocytes Abs Auto 0.03 10^3/uL (0.00-0.03); Immature Granulocytes Pct Auto 0.3 % (0.0-0.5); Lymphocytes Absolute Auto 0.8 10^3/uL (1.2-3.8); Lymphocytes Percent Auto 6.8 % (20.5-60.0); Mean Corpuscular HGB Conc 33.7 g/dL (29.9-35.2); Mean Corpuscular Hemoglobin 28.1 pg (25.9-34.0); Mean Corpuscular Volume 83.3 fL (80.0-94.0); Mean Platelet Volume 9.3 fL (9.5-13.5); Monocytes Absolute Auto 0.4 10^3/uL (0.3-0.8); Monocytes Percent Auto 3.6 % (1.7-12.0); Neutrophils Absolute Auto 10.2 10^3/uL (1.4-6.5); Neutrophils Percent Auto 88.2 % (43.0-75.0); Platelet Count 284 10^3/uL (150-450); Red Blood Count 5.45 10^6/uL (4.70-6.10); Red Cell Distribution Width 12.2 % (11.0-15.0); White Blood Count 11.6 10^3/uL (4.0-11.0)
[2024-09-19 13:52] LABS: Erythrocyte Sedimentation Rate 9 mm/hr (<=15)
[2024-09-19 14:06] LABS: Lactate/Lactic Acid 1.3 mmol/L (0.4-2.0)
[2024-09-19 14:12] LABS: Alanine Aminotransferase 21 U/L (16-63); Albumin Globulin Ratio 1.1; Alkaline Phosphatase 95 U/L (46-116); Anion Gap 16.4; Aspartate Amino Transferase 13 U/L (15-37); BUN Creatinine Ratio 15.1; Bilirubin Total 0.8 mg/dL (0.2-1.0); C Reactive Protein <0.50 mg/dL (<=0.50); Calcium 9.4 mg/dL (8.5-10.1); Chloride 101 mmol/L (98-107); Estimated GFR (African America >60 (>=60 mL/min/1.73m^2); Estimated GFR (Non-African Ame >60 (>=60 mL/min/1.73m^2); Globulin 3.6 g/dL; Glucose 101 mg/dL (74-106); Potassium 4.4 mmol/L (3.5-5.1); Sodium 137 mmol/L (136-145); Total Protein 7.6 g/dL (6.4-8.2)
== END 2024-09-19 15:08 | disposition home or self-care (01) ==
PROVIDERS: Physician Assistant; Emergency Provider Emergency Medicine
DX: K52.9 Noninfective gastroenteritis and colitis, unspecified (principal); R10.9 Unspecified abdominal pain; F17.200 Nicotine dependence, unspecified, uncomplicated
CPT/HCPCS: 36415; 74177; 80053; 83605; 83690; 85025; 85652; 86140; 96374; 96375; 99285; J1885; J2405; Q9967

== ENCOUNTER 2024-09-24 13:32 | Emergency (ER) | payer OTHER, SELFPAY ==
[2024-09-24 13:38] VITALS: BP 153/94; PULSE 104; TEMP 36.6; O2SAT 97; BMI 26.6
--- NOTE | 2024-09-24 14:04 | ED_ITS ---
HPI HPI - General Adult General Chief complaint: Abdominal Pain Stated complaint: abdominal pain Time Seen by Provider: 09/24/24 13:43 Source: patient Mode of arrival: walk-in Limitations: no limitations History of Present Illness HPI narrative: This medical record number is invalid. A new record was started for this patient and this 1 is to be discarded. Related Data Home Medications ?Medication ?Instructions ?Recorded ?Confirmed amoxicillin 875 mg-potassium 1 tab PO Q12H 09/24/24 09/24/24 clavulanate 125 mg tablet dextroamphetamine-amphetamine 15 7.5 mg PO BID 09/24/24 09/24/24 mg tablet dicyclomine 20 mg tablet 20 mg PO .q6 09/24/24 09/24/24 hydrocodone 5 mg-acetaminophen 325 1 tab PO Q6H PRN pain 09/24/24 09/24/24 mg tablet ketorolac 10 mg tablet 10 mg PO Q8H 09/24/24 09/24/24 ondansetron 4 mg disintegrating 4 mg PO Q6H PRN nausea and vomiting 09/24/24 09/24/24 tablet Allergies Allergy/AdvReac Type Severity Reaction Status Date / Time No Known Drug Allergies Allergy Verified 09/24/24 13:42 Opioid HPI Opioid Management Most Recent Opioid Data: No Data to Display Exam Constitutional Vital Signs, click to edit/add: Last Vital Signs Temp 98 F 09/24/24 13:38 Pulse 104 H 09/24/24 13:38 Resp 20 09/24/24 13:38 BP 153/94 H 09/24/24 13:38 Pulse Ox 97 09/24/24 13:38 O2 Del Method Room Air 09/24/24 13:38 Course Vital Signs Vital signs: Vital Signs Temperature 98 F 09/24/24 13:38 Pulse Rate 104 H 09/24/24 13:38 Respiratory Rate 20 09/24/24 13:38 Blood Pressure 153/94 H 09/24/24 13:38 Pulse Oximetry 97 09/24/24 13:38 Oxygen Delivery Method Room Air 09/24/24 13:38 Temperature 98 F 09/24/24 13:38 Pulse Rate 104 H 09/24/24 13:38 Respiratory Rate 20 09/24/24 13:38 Blood Pressure 153/94 H 09/24/24 13:38 Pulse Oximetry 97 09/24/24 13:38 Oxygen Delivery Method Room Air 09/24/24 13:38 Discharge Plan Discharge Stand Alone Forms: Portal Instructions Chief Complaint: Abdominal Pain Patient Disposition: Left Against Medical Advice Time of Disposition Decision: 14:01 Prescriptions / Home Meds: No Action amoxicillin-pot clavulanate 875-125 mg tablet 1 tab PO Q12H dextroamphetamine-amphetamine 15 mg tablet 7.5 mg PO BID dicyclomine 20 mg tablet 20 mg PO .q6 hydrocodone-acetaminophen 5-325 mg tablet 1 tab PO Q6H PRN (Reason: pain) ketorolac 10 mg tablet 10 mg PO Q8H ondansetron 4 mg tablet,disintegrating 4 mg PO Q6H PRN (Reason: nausea and vomiting) Print Language: Estonian Referrals: Luis Johnston ND [Primary Care Provider] - 1 week Discharge Date/Time: 09/24/24 14:02
== END 2024-09-24 14:02 | disposition left against medical advice (07) ==
PROVIDERS: Emergency Provider Emergency Medicine; PCP Student in an Organized Health Care Education/Training Program
DX: Z53.21 Procedure and treatment not carried out due to patient leaving prior to being seen by health care provider (principal)
CPT/HCPCS: 80048; 80076; 82150; 83690

== ENCOUNTER 2024-09-24 13:50 | Emergency (ER) | payer OTHER, SELFPAY ==
[2024-09-24 14:03] VITALS: BP 153/94; PULSE 104; TEMP 36.6; O2SAT 98; BMI 26.6
--- NOTE | 2024-09-24 14:05 | CT_ITS ---
[address] [address] Patient Name: LULÚ REAL MRN: [id number] date: 2000 Sex: M Assigned Patient Location: ED.MAIN Current Patient Location: ER Accession/Order Number: [id number] Exam Date: 09/24/2024 15:00 Report Date: 09/24/2024 16:28 At the request of: TEREZA BLACKBURN Procedure: CT abdomen pelvis w con EXAM: CT abdomen pelvis w con HISTORY: Abdominal pain COMPARISON: CT scans dated 09/19/2024 and earlier. TECHNIQUE: CT abdomen pelvis with IV contrast. Axial scans with reformatted coronal and sagittal images. Individualized radiation dose reduction used for this exam. Contrast: 100 mL Omnipaque 300 FINDINGS: Lower chest: No acute process, no new abnormality. ABDOMEN: Liver unremarkable without focal lesion, fatty infiltration seen along the fissure stable. Normal-appearing gallbladder without calcified stone or surrounding inflammation. No biliary dilatation. Adrenal glands, pancreas, spleen unremarkable. No abdominal fluid or ascites. Scattered small subcentimeter mesenteric lymph nodes again noted without increasing adenopathy. No periaortic mass or adenopathy. Normal enhancement aorta and branches. Normal venous enhancement. Normal symmetric renal enhancement without mass or hydronephrosis, normal ureters. Appendix diameter remains within normal limits 5-6 mm without surrounding fluid or inflammation. A little stool in the colon. Fluid and gas noted in ascending and transverse portion. No definite pericolonic fluid or inflammation. PELVIS: No mass or adenopathy or free fluid. Normal-appearing bladder. MUSCULOSKELETAL: No suspicious bone lesion. CT/CT abdomen pelvis w con IMPRESSION: 1. Normal-appearing appendix right lower quadrant without surrounding fluid or inflammation. 2. Again noted is very little stool in the colon, gas and fluid in the ascending and transverse colon similar previous. No pericolonic inflammation seen. No evidence of bowel dilatation or obstruction. 3. Scattered small mesenteric lymph nodes unchanged subcentimeter. No increasing adenopathy. 4. Normal homogeneous enhancement appearance of the kidneys. Electronically authenticated by: SMOOTH KEE Date: 09/24/2024 16:28
--- NOTE | 2024-09-24 14:06 | ED_ITS ---
HPI - Abdominal Pain General Chief Complaint: Abdominal Pain Stated Complaint: abdominal pain Time Seen by Provider: 09/24/24 14:03 History of Present Illness HPI narrative: 24-year-old male presents to the emergency department for abdominal pain. He is a poor historian. This pain seems to have started 4 days ago and is all over his abdomen. He points mostly to the right side. He was seen in this emergency department and had a CAT scan which showed questionable colitis. He had been prescribed Augmentin. He followed up with his doctor who ordered another CAT scan which was performed yesterday. After obtaining a copy of that CAT scan which was done as an outpatient in [place] it indicates colitis versus early appendicitis. She continues to have severe pain. No trauma or fever. Related Data Home Medications ?Medication ?Instructions ?Recorded ?Confirmed dextroamphetamine-amphetamine 15 7.5 mg PO BID 12/07/23 12/07/23 mg tablet Previous Rx's ?Medication ?Instructions ?Recorded ondansetron 4 mg disintegrating 4 mg PO Q6H PRN nausea and 12/08/23 tablet vomiting #20 tabs amoxicillin 875 mg-potassium 1 tab PO BID #14 tabs 09/19/24 clavulanate 125 mg tablet dicyclomine 20 mg tablet 20 mg PO QID PRN abdominal pain 09/19/24 #12 tabs ketorolac 10 mg tablet 10 mg PO TID PRN pain #10 tabs 09/19/24 ondansetron 4 mg disintegrating 4 mg PO Q6H PRN nausea and 09/19/24 tablet vomiting #12 tabs hydrocodone 5 mg-acetaminophen 325 1 tab PO Q6H PRN pain 5 days #14 09/24/24 mg tablet tabs Allergies Allergy/AdvReac Type Severity Reaction Status Date / Time No Known Drug Allergies Allergy Verified 09/19/24 12:56 Review of Systems ROS Narrative A ten point review of systems is negative except as noted above. PFSH PFSH Social History Smoking status: Current every day smoker Little interest or pleasure in doing things: not at all Feeling down, depressed, or hopeless: not at all Exam Narrative Exam Narrative: Nurses note and vital signs reviewed and patient is not hypoxic. General: The patient appears uncomfortable and in no respiratory distress. Skin: Warm, dry, no pallor noted. There is no rash noted. Head: Normocephalic, atraumatic Eye: Normal conjunctiva, no drainage Ears, Nose, Mouth, and Throat: oral mucosa is moist. Nares patent. Cardiovascular: Regular Rate and Rhythm Respiratory: Patient is in no distress, no accessory muscle use, lungs are clear to auscultation, no wheezing, rales or rhonchi Back: non-tender, no CVA tenderness bilaterally to percussion. GI: Diffuse tenderness and he seems to have guarding Musculoskeletal: The patient has no evidence of calf tenderness, no pitting edema, symmetrical pulses noted bilaterally Neurological: A&O normal speech; tremorous Psychiatric: Cooperative Constitutional Vital Signs, click to edit/add: Last Vital Signs Temp 97.9 F 09/24/24 14:03 Pulse 96 H 09/24/24 15:43 Resp 18 09/24/24 15:43 BP 171/92 H 09/24/24 15:43 Pulse Ox 97 09/24/24 15:43 O2 Del Method Room Air 09/24/24 15:43 Course Vital Signs Vital signs: Vital Signs Temperature 97.9 F 09/24/24 14:03 Pulse Rate 104 H 09/24/24 14:03 Respiratory Rate 20 09/24/24 14:03 Blood Pressure 153/94 H 09/24/24 14:03 Pulse Oximetry 98 09/24/24 14:03 Oxygen Delivery Method Room Air 09/24/24 14:03 Temperature 97.9 F 09/24/24 14:03 Pulse Rate 96 H 09/24/24 15:43 Respiratory Rate 18 09/24/24 15:43 Blood Pressure 171/92 H 09/24/24 15:43 Pulse Oximetry 97 09/24/24 15:43 Oxygen Delivery Method Room Air 09/24/24 15:43 MDM - Abdominal Pain MDM Narrative Medical decision making narrative: Blood work is essentially normal and CT of the abdomen shows no explanation for his symptoms. 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 Treatment diagnosis and follow-up were discussed with the patient. Differential Diagnosis Differential diagnosis: Likely abdominal pain, acute appendicitis, constipation, diverticulitis, gastroenteritis, pancreatitis and small bowel obstruction Medical Records Attestation: I reviewed the patient's medical records. Lab Data Attestation: I reviewed the patient's lab results. Labs: Lab Results 09/24/24 Range/Units 14:15 WBC 6.4 (4.0-11.0) 10^3/uL RBC 5.73 (4.70-6.10) 10^6/uL Hgb 15.9 (14.0-18.0) g/dL Hct 46.0 (42.0-54.0) % MCV 80.3 (80.0-94.0) fL MCH 27.7 (25.9-34.0) pg MCHC 34.6 (29.9-35.2) g/dL RDW 12.0 (11.0-15.0) % Plt Count 293 (150-450) 10^3/uL MPV 9.6 (9.5-13.5) fL Neut % (Auto) 79.0 H (43.0-75.0) % Lymph % (Auto) 11.4 L (20.5-60.0) % [place] % (Auto) 7.8 (1.7-12.0) % Eos % (Auto) 1.1 (0.9-7.0) % Baso % (Auto) 0.5 (0.2-2.0) % Neut # (Auto) 5.1 (1.4-6.5) 10^3/uL Lymph # (Auto) 0.7 L (1.2-3.8) 10^3/uL [place] # (Auto) 0.5 (0.3-0.8) 10^3/uL Eos # (Auto) 0.1 (0.0-0.7) 10^3/uL Baso # (Auto) 0.0 (0.0-0.1) 10^3/uL Abs Immat Gran (auto) 0.01 (0.00-0.03) 10^3/uL Imm/Tot Granulo (auto) 0.2 (0.0-0.5) % Sodium 138 (136-145) mmol/L Potassium 3.4 L (3.5-5.1) mmol/L Chloride 102 (98-107) mmol/L Carbon Dioxide 24.3 (21.0-32.0) mmol/L Anion Gap 15.1 BUN 7.0 (7.0-18.0) mg/dL Creatinine 1.02 (0.70-1.30) mg/dL Est GFR ( Amer) >60 (>=60 mL/min/1.73m^2) Est GFR (Non-Af Amer) >60 (>=60 mL/min/1.73m^2) BUN/Creatinine Ratio 6.9 Glucose 93 (74-106) mg/dL Calcium 9.5 (8.5-10.1) mg/dL Total Bilirubin 0.7 (0.2-1.0) mg/dL Direct Bilirubin 0.1 (0.0-0.2) mg/dL AST 15 (15-37) U/L ALT 19 (16-63) U/L Alkaline Phosphatase 94 (46-116) U/L Total Protein 7.9 (6.4-8.2) g/dL Albumin 4.3 (3.4-5.0) g/dL Globulin 3.6 g/dL Albumin/Globulin Ratio 1.2 Amylase 19 L (25-115) U/L Lipase 13.0 L (16.0-77.0) U/L Imaging Data CT scan - abdomen: Radiologist's impression: ITS Impressions Abdomen/Pelvis CT 09/24/24 14:05 IMPRESSION: 1. Normal-appearing appendix right lower quadrant without surrounding fluid or inflammation. 2. Again noted is very little stool in the colon, gas and fluid in the ascending and transverse colon similar previous. No pericolonic inflammation seen. No evidence of bowel dilatation or obstruction. 3. Scattered small mesenteric lymph nodes unchanged subcentimeter. No increasing adenopathy. 4. Normal homogeneous enhancement appearance of the kidneys. Electronically authenticated by: SMOOTH KEE Date: 09/24/2024 16:28 Discharge Plan Discharge Chief Complaint: Abdominal Pain Clinical Impression: Abdominal pain Patient Disposition: Home, Self-Care Time of Disposition Decision: 16:37 Condition: Good Mode of Transportation: Private Vehicle Prescriptions / Home Meds: New hydrocodone-acetaminophen 5-325 mg tablet 1 tab PO Q6H PRN (Reason: pain) 5 Days Qty: 14 0RF No Action dextroamphetamine-amphetamine 15 mg tablet 7.5 mg PO BID ondansetron 4 mg tablet,disintegrating 4 mg PO Q6H PRN (Reason: nausea and vomiting) Qty: 20 0RF ketorolac 10 mg tablet 10 mg PO TID PRN (Reason: pain) Qty: 10 0RF dicyclomine 20 mg tablet 20 mg PO QID PRN (Reason: abdominal pain) Qty: 12 0RF ondansetron 4 mg tablet,disintegrating 4 mg PO Q6H PRN (Reason: nausea and vomiting) Qty: 12 0RF amoxicillin-pot clavulanate 875-125 mg tablet 1 tab PO BID Qty: 14 0RF Print Language: Uzbek Instructions: Abdominal Pain (ED) Additional Instructions: 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
[2024-09-24 14:27] LABS: Basophils Percent Auto 0.5 % (0.2-2.0); Eosinophils Absolute Auto 0.1 10^3/uL (0.0-0.7); Eosinophils Percent Auto 1.1 % (0.9-7.0); Hemoglobin 15.9 g/dL (14.0-18.0); Immature Granulocytes Abs Auto 0.01 10^3/uL (0.00-0.03); Immature Granulocytes Pct Auto 0.2 % (0.0-0.5); Lymphocytes Absolute Auto 0.7 10^3/uL (1.2-3.8); Lymphocytes Percent Auto 11.4 % (20.5-60.0); Mean Corpuscular HGB Conc 34.6 g/dL (29.9-35.2); Mean Corpuscular Hemoglobin 27.7 pg (25.9-34.0); Mean Corpuscular Volume 80.3 fL (80.0-94.0); Mean Platelet Volume 9.6 fL (9.5-13.5); Monocytes Absolute Auto 0.5 10^3/uL (0.3-0.8); Monocytes Percent Auto 7.8 % (1.7-12.0); Neutrophils Absolute Auto 5.1 10^3/uL (1.4-6.5); Platelet Count 293 10^3/uL (150-450); Red Blood Count 5.73 10^6/uL (4.70-6.10); White Blood Count 6.4 10^3/uL (4.0-11.0)
[2024-09-24 14:42] LABS: Alanine Aminotransferase 19 U/L (16-63); Albumin Globulin Ratio 1.2; Albumin Level 4.3 g/dL (3.4-5.0); Alkaline Phosphatase 94 U/L (46-116); Amylase 19 U/L (25-115); Anion Gap 15.1; Aspartate Amino Transferase 15 U/L (15-37); BUN Creatinine Ratio 6.9; Bilirubin Direct 0.1 mg/dL (0.0-0.2); Bilirubin Total 0.7 mg/dL (0.2-1.0); Calcium 9.5 mg/dL (8.5-10.1); Carbon Dioxide 24.3 mmol/L (21.0-32.0); Chloride 102 mmol/L (98-107); Estimated GFR (African America >60 (>=60 mL/min/1.73m^2); Estimated GFR (Non-African Ame >60 (>=60 mL/min/1.73m^2); Globulin 3.6 g/dL; Glucose 93 mg/dL (74-106); Potassium 3.4 mmol/L (3.5-5.1); Sodium 138 mmol/L (136-145); Total Protein 7.9 g/dL (6.4-8.2)
[2024-09-24 15:43] VITALS: BP 171/92; PULSE 96; O2SAT 97
[2024-09-24 16:45] VITALS: BP 148/88; PULSE 96; O2SAT 98
== END 2024-09-24 16:48 | disposition home or self-care (01) ==
PROVIDERS: Emergency Provider Emergency Medicine; PCP Student in an Organized Health Care Education/Training Program
DX: R10.9 Unspecified abdominal pain (principal); F17.200 Nicotine dependence, unspecified, uncomplicated
CPT/HCPCS: 36415; 74177; 80048; 80076; 82150; 83690; 85025; 99284; Q9967

== ENCOUNTER 2024-10-19 12:31 | Emergency (ER) | payer OTHER, SELFPAY ==
--- OUTSIDE RECORDS SUMMARY | 2024-10-19 12:39 | XMS_ITS | CCD ---
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 Name Role Phone LUL LAM L Unavailable Unavailable LUL LAM L Unavailable Unavailable RUBIO RIVERA Unavailable Unavailable [...] No Pcp, No Pcp Primary Care Provider UnavailJavier Navarro MD Primary Care Provider [phone] NO FAMILY, PHYSICIAN Primary Care Provider Unava ilable BRIA Silverio Emergency Provider MD Laquita Cisneros Attending Provider Laquita Cisneros Attending Unavailable Blayne Imadelfo Admitting Unavailable NO FAMILY, PHYSICIAN Primary Care Unavailable Shabnam Silverio Admitting Unavailable NO FAMILY, PHYSICIAN Primary Care Unavailable Shabnam Silverio Attending Unavailable JAVIER ALBERTS Attending Unavailable KENA CROW Referring Unavailable JAVIER ALBERTS Primary Care Unavailable JAVIER ALBERTS Attending Unavailable JAVIER ALBERTS Referring Unavailable JAVIER ALBERTS Primary Care Unavailable KENA CROW Attending Unavailable NO PCP, NO PCP Primary Care Unavailable LEXUS, MUHAMID M Attending Unavailable LEXUS, MUHAMID M Referring Unavailable LEXUS, MUHAMID M Primary Care Unavailable POWERS, HARIKA Referring Unavailable LEXUS, MUHAMID M Primary Care Unavailable LEXUS, MUHAMID M Primary Care Unavailable LEXUS, MUHAMID M Primary Care Unavailable JAMIN KINGSLEY Attending Unavailable KENA CROW Referring Unavailable NO PCP, NO PCP Primary Care Unavailable CATALINO OVERTON Attending Unavailab le CATALINO OVERTON Referring Unavailab le NO PCP, NO PCP Primary Care Unavailable CATALINO OVERTON Attending Unavailab le CATALINO OVERTON Referring Unavailab le NO PCP, NO PCP Primary Care Unavailable NO PCP, NO PCP Primary Care Unavailable JEREMIAH DAVIES Attending Unavailable LEXUS, MUHAMID M Primary Care Unavailable JEREMIAH DAVIES Attending Unavailable NO PCP, NO PCP Primary Care Unavailable GIOVANNY HERNANDEZ Attending Unavailable POWERS, HARIKA Referring Unavailable LEXUS, MUHAMID M Primary Care Unavailable NO PCP, NO PCP Primary Care Unavailable CATALINO OVERTON Attending Unavailab TANNER Hodge P Admitting Unavailable REBEKAH WILSON Attending Unavailable LEXUS, MUHAMID M Primary Care Unavailable PHYSICIANS, SUKUMAR GODINEZ Consulting Estefania vailable REBEKAH WILSON Consulting Unavailable LEXUS, MUHAMID M Referring Unavailable LEXUS, MUHAMID M Primary Care Unavailable POTHIRELATONIAY, TANNER P Admitting Unavailable POTHIRELATONIAY, TANNER P Attending Unavailable REBEKAH WILSON Referring Unavailable LEXUS, MUHAMID M Primary Care Unavailable REBEKAH WILSON Consulting Unavailable Allergies Allergy Classification Reported Allergen(s) Allergy Type Date of Onset Reaction(s) Facility (1 source) Cat/Feline Product Derivatives Drug allergy (disorder) [facility] Medications Current Medications Medication Drug Class(es) Dates Sig (Normalized) Sig (Original) acetaminophen 325 mg oral tablet (1 source) Start: 01-19-2024 take 1 tablet by mouth every six hours Acetaminophen (Pain Relief (Acetaminophen)) 325 mg tablet Active 325 MG PO Every 6 hours January 19, 2024 12:00am acetaminophen 325 mg / HYDROcodone bitartrate 5 mg oral tablet (4 sources) Opioid Agonist Start: 09-21-2024 End: 09-25-2024 HYDROcodone-acetami nophen (NORCO) 5-325 mg per tablet Indications: Right lower quadrant abdominal pain Take 1 tablet by mouth every 6 (six) hours as needed for pain for up to 4 days. Max Daily Amount: 4 tablets 16 tablet 09/21/2024 09/25/2024 Active [id number] 200 actuat albuterol 0.09 mg/actuat metered dose inhaler (11 sources) beta2-Adrenergic Agonist Start: 02-02-2024 Albuterol Sulfate Active 2 INH INHALATION As Directed February 02, 2024 12:00am take 2 puff(s) by in halation every six hours as needed for wheezing albuterol (PROVENTIL HFA;VENTOLIN HFA) 9 0 mcg/actuation inhaler Inhale 2 puffs every 6 (six) hours as needed for wheezing. Active Albuterol Sulfat e Active Faviola Allergy (2 sources) Faviola Allergy Active amoxicillin 875 mg / clavulanate 125 mg oral tablet (8 sources) Penicillin-class Antibacterial Start: 2023 take 1 tablet by mouth once amoxicillin-pot clavulanate (AUGMENTIN) 875-125 mg per tablet Take 1 tablet by mouth every 12 (twelve) hours. 09/19/2024 Active amphetamine aspartate 3.75 mg / amphetamine sulfate 3.75 mg / dextroamphetamine saccharate 3.75 mg / dextroamphetamine sulfate 3.75 mg oral tablet (11 sources) Central Nervous System Stimulant Start: 2023 take 1 tablet by mouth in the morning, then take 1 tablet by mouth at bedtime dextroamphetamine-am phetamine (ADDERALL) 15 mg tablet Take 1 tablet (15 mg total) by mouth in the morning and 1 tablet (15 mg total) before bedtime. 11/21/2023 Active benzoyl peroxide 0.05 mg/mg / erythromycin 0.03 mg/mg topical gel (8 sources) Macrolide, Macrolide Antimicrobial Start: 2023 erythromycin-benzoyl peroxide (BENZAMYCIN) gel Indications: Acne vulgaris Apply 1 Application topically in the morning and 1 Application before bedtime. 47 g 05/04/2024 Active ciprofloxacin 500 mg oral tablet (1 source) [...] as needed Orally every 8 hrs Active lactobacillus rhamnosus gg [id number] unt chewable tablet (8 sources) Start: 2023 Lactobacillus rhamnosus GG (CULTURELLE) 5 billion cell tablet,chewable Indications: RLQ abdominal pain Chew 1 tablet and swallow in the morning and 1 tablet at noon and 1 tablet in the evening. Chew with meals. 60 tablet 3 03/24/2024 Active metroNIDAZOLE 500 mg oral tablet (1 [...] 12:00am ondansetron 4 mg disintegrating oral tablet (12 sources) Serotonin-3 Receptor Antagonist Start: 2023 ondansetron ODT (ZOFRAN ODT) 4 mg disintegrating tablet Dissolve 1 tablet (4 mg total) on tongue 3 (three) times a day as needed for nausea for up to 3 doses. 3 tablet 09/25/2024 Active Start: 09-19-2024 take 1 tablet by samara th every eight hours as needed ondansetron ODT (ZOFRAN ODT) 4 mg disintegrating tablet Dissolve 1 tablet (4 mg total) on tongue every 8 (eight) hours as needed. 09/19/2024 Active Start: 12-08-2023 ondansetron OD T (ZOFRAN ODT) 4 mg disintegrating tablet Dissolve 1 tablet (4 mg total) on tongue daily as needed for nausea or vomiting. 0 12/08/2023 Active predniSONE 20 mg oral tablet (2 sources) Start: 09-25-2024 End: 10-04-2024 take 2 tablets by mouth in the morning predniSONE (DELTASONE) 20 mg tablet Take 2 tablets (40 mg total) by mouth in the morning for 9 days. 18 tablet 09/25/2024 10/04/2024 Active Sod Picosulf-Mag Ox-Citric Ac (1 source) Start: 12-28-2023 take 1 dose by mouth once daily [...] Date Documented Da te Episodic/Chronic Abdominal pain (11 sources) Abdominal pain; Translations: [Unspecified abdominal pain] Onset: 03-24-2024 12-23-2023 Episodic Administrative/social admission (4 sources) Patient encounter status; Translations: [Persons encountering health services in other specified circumstances] Onset: 01-15-2024 12-09-2023 Episodic Anxiety disorders (1 source) Mental health problem Onset: 10-13-2024 Chronic Attention-deficit, conduct, and disruptive behavior disorders (1 source) Other symptoms and signs involving appearance and behavior; Translations: [Other symptoms and signs involving appearance and behavior] Onset: 10-12-2024 Episodic Cardiac dysrhythmias (1 source) Tachycardia, unspecified; Translations: [Tachycardia, unspecified] Onset: 10-13-2024 Episodic E Codes: Natural/environment (1 source) Other and unspecified overexertion or strenuous movements or postures, initial encounter; Translations: [OTH AND UNS OVREXRT/STRN MVMT/POS INT] Onset: 08-18-2022 Episodic E Codes: Struck by; against (1 source) Striking against or struck by other objects, initial encounter; Translations: [STRIKING AGNST/STRUCK OTH OBJ INIT] Onset: 07-10-2022 Episodic Mood disorders (2 sources) Manic episode without psychotic symptoms, unspecified; Translations: [Bipolar disorder, current episode manic severe with psychotic features] Onset: 10-13-2024 Chronic Noninfectious gastroenteritis (11 sources) Colitis; Translations: [Noninfective gastroenteritis and colitis, unspecified] Onset: 12-09-2023 12-09-2023 Episodic Other connective tissue disease (3 sources) Pain in right foot; Translations: [PAIN IN RIGHT FOOT] Onset: 06-30-2022 Episodic Other connective tissue disease (1 source) Rhabdomyolysis; Translations: [Rhabdomyolysis] Onset: 10-14-2024 Episodic Other gastrointestinal disorders (2 sources) Diarrhea; [...] intervertebral disc degeneration, lumbar region] 01-16-2024 Chronic Superficial injury; contusion (1 source) Contusion of right foot, initial encounter; Translations: [CONTUSION RIGHT FOOT INITIAL ENC] Onset: 07-10-2022 Episodic Unclassified (1 source) Establish Care Onset: 01-15-2024 Unclassified (1 source) Medical Screening Onset: 10-12-2024 Unclassified (1 source) Mental Health Eval Onset: 10-12-2024 Unclassified (1 source) [email or web address] Onset: 10-14-2024 Viral infection (1 source) COVID-19; Translations: [COVID-19] Onset: 10-15-2024 Past or Other Problems Problem Classification Problem Date Documented Da te Episodic/Chronic Allergic reactions (1 source) Unspecified contact dermatitis, unspecified cause; Translations: [Unspecified contact dermatitis, unspecified cause] Onset: 04-29-2017 Episodic Epilepsy; 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 sources) Unspecified convulsions; Translations: [Other convulsions] Onset: 05-23-2019 05-23-2019 Episodic Mood disorders (10 sources) Mood disorders Onset: 03-25-2021 Resolved: 01-15-2024 03-25-2021 Other gastrointestinal disorders (2 sources) Diarrhea, unspecified; Translations: [Diarrhea, unspecified] Onset: 12-09-2023 Episodic Residual codes; unclassified (1 source) Family history of other diseases of the digestive system; Translations: [Family history of other diseases of the digestive system] Onset: 12-09-2023 Episodic Spondylosis; intervertebral disc disorders; other back problems (2 sources) Backache; Translations: [Muscle spasm of back] Onset: 11-14-2023 Episodic Sprains and strains (4 sources) Sprain of unspecified ligament of right ankle, initial encounter; Translations: [Strain of muscle, fascia and tendon of lower back, subsequent encounter] Onset: 08-18-2022 Episodic Results Test Name Value Interpretation Reference Range Facility CBC AND AUTO DIFFon 10-18-20 ABSOLUTE BASOPHIL 0.0 X10E9/L Normal 0.0-0.2 [facility] Comment on above: Performed By: #### C AGUEDA DIAZ, 2157-03, 2638-12 #### [facility] ([id number]) [address] [place] [address] ABSOLUTE NEUTROPHIL 2.5 X10E9/L Normal 1.5-6.6 [facility] Comment on above: Performed By: #### AGUEDA Salgado BCA, 2157-03, 2638-12 #### [facility] ([id number]) [address] [place] [address] Basophils/100 WBC (Bld) 0.8 % Normal [facility] Comment on above: Performed By: #### AGUEDA Salgado BCA, 2157-03, 2638-12 #### [facility] ([id number]) [address] [place] [address] Eosinophils (Bld) [#/Vol] 0.3 10*3/uL Normal 0.0-0.4 [facility] Comment on above: Performed By: #### AGUEDA Salgado BCA, 2157-03, 2638-12 #### [facility] ([id number]) [address] [place] [address] Eosinophils/100 WBC (Bld) 6.4 % Normal [facility] Comment on above: Performed By: #### AGUEDA Salgado BCA, 2157-03, 2638-12 #### [facility] ([id number]) [address] [place] [address] Erythrocyte distribution width (RBC) [Ratio] 13.5 % Normal 11.5-15.0 [facility] Comment on above: Performed By: #### C EMILY, BMP, 2157-03, 2638-12 #### [facility] ([id number]) [facility] [place] [address] Hematocrit (Bld) [Volume fraction] 35.3 % Low 39-49 [facility] Comment on above: Performed By: #### C BCA, BMP, 2157-03, 2638-12 #### [facility] ([id number]) [facility] [place] [address] Hemoglobin (Bld) [Mass/Vol] 11.8 g/dL Low 13.0-17.0 [facility] Comment on above: Performed By: #### C EMILY, BMP, 2157-03, 2638-12 #### [facility] ([id number]) [address] [place] [address] Lymphocytes (Bld) [#/Vol] 1.2 10*3/uL Normal 1.0-3.5 [facility] Comment on above: Performed By: #### C EMILY, BMP, 2157-03, 2638-12 #### [facility] ([id number]) [facility] [place] [address] Lymphocytes/100 WBC (Bld) 25.5 % Normal [facility] Comment on above: Performed By: #### C EMILY, BMP, 2157-03, 2638-12 #### [facility] ([id number]) [facility] [place] [address] MCH (RBC) [Entitic mass] 27.0 pg Normal 27-34 [facility] Comment on above: Performed By: #### C EMILY, BMP, 2157-03, 2638-12 #### [facility] ([id number]) [facility] [place] [address] MCHC (RBC) [Mass/Vol] 33.6 g/dL Normal 32-36 [facility] Comment on above: Performed By: #### C BCA, BMP, 2157-03, 2638-12 #### [facility] ([id number]) [address] [place] [address] MCV (RBC) [Entitic vol] 81 fL Normal 80-100 [facility] Comment on above: Performed By: #### C BCA, BMP, 2157-03, 2638-12 #### [facility] ([id number]) [address] [place] [address] Monocytes (Bld) [#/Vol] 0.5 10*3/uL Normal 0-0.9 [facility] Comment on above: Performed By: #### C EMILY, BMP, 2157-03, 2638-12 #### [facility] ([id number]) [address] [place] [address] Monocytes/100 WBC (Bld) 12.0 % Normal [facility] Comment on above: Performed By: #### Naomi DIAZ, BMP, 2157-03, 2638-12 #### [facility] ([id number]) [address] [place] [address] Neutrophils/100 WBC (Bld) 55.3 % Normal [facility] Comment on above: Performed By: #### Naomi DIAZ, BMP, 2157-03, 2638-12 #### [facility] ([id number]) [address] [place] [address] Platelet mean volume (Bld) [Entitic vol] 7.4 fL Normal 7-12 [facility] Comment on above: Performed By: #### C BCA, BMP, 2157-03, 2638-12 #### [facility] ([id number]) [address] [place] [address] Platelets (Bld) [#/Vol] 233 10*3/uL Normal 150-450 [facility] Comment on above: Performed By: #### Naomi BCA, BMP, 2157-03, 2638-12 #### [facility] ([id number]) [address] [place] [address] RBC COUNT 4.38 X10E12/L Normal 4.10-5.70 [facility] Comment on above: Performed By: #### C BCA, BMP, 2157-03, 2638-12 #### [facility] ([id number]) [address] [place] [address] WBC (Bld) [#/Vol] 4.6 10*3/uL Normal 4.0-11.0 [facility] Comment on above: Performed By: #### C BCA, BMP, 2157-03, 2638-12 #### [facility] ([id number]) [address] [place] [address] CK [Catalytic activity/Vol]o n 10-18-2024 CPK 688 U/L High 24-195 [facility] Comment on above: Performed By: #### C BCA, BMP, 2157-03, 2638-12 #### [facility] ([id number]) [address] [place] [address] COMPREHENSIVE METABOLIC PANE Alex 10-18-2024 Albumin [Mass/Vol] 3.8 g/dL Normal 3.2-5.3 [facility] Comment on above: Performed By: #### C BCA, BMP, 2157-03, 2638-12 #### [facility] ([id number]) [address] [place] [address] ALP [Catalytic activity/Vol] 63 U/L Normal 39-130 [facility] Comment on above: Performed By: #### C BCA, BMP, 2157-03, 2638-12 #### [facility] ([id number]) [address] [place] [address] ALT [Catalytic activity/Vol] 53 U/L High 0-40 [facility] Comment on above: Performed By: #### C BCA, BMP, 2157-03, 2638-12 #### [facility] ([id number]) [address] [place] [address] Anion gap [Moles/Vol] 9 mmol/L Normal 5-15 [facility] Comment on above: Performed By: #### C BCA, BMP, 2157-03, 2638-12 #### [facility] ([id number]) [address] [place] [address] AST [Catalytic activity/Vol] 47 U/L High 0-41 [facility] Comment on above: Performed By: #### C BCA, BMP, 2157-03, 2638-12 #### [facility] ([id number]) [facility] [place] [address] Bilirubin [Mass/Vol] 0.8 mg/dL Normal 0.3-1.2 [facility] Comment on above: Performed By: #### C BCA, BMP, 2157-03, 2638-12 #### [facility] ([id number]) [facility] [place] [address] Calcium [Mass/Vol] 8.5 mg/dL Normal 8.5-10.5 [facility] Comment on above: Performed By: #### C BCA, BMP, 2157-03, 2638-12 #### [facility] ([id number]) [facility] [place] [address] Chloride [Moles/Vol] 109 mmol/L Normal 98-109 [facility] Comment on above: Performed By: #### C BCA, BMP, 2157-03, 2638-12 #### [facility] ([id number]) [facility] [place] [address] CO2 [Moles/Vol] 23 mmol/L Normal 22-32 [facility] Comment on above: Performed By: #### C BCA, BMP, 2157-03, 2638-12 #### [facility] ([id number]) [facility] [place] [address] Creatinine [Mass/Vol] 0.62 mg/dL Normal 0.60-1.30 [facility] Comment on above: Result Comment: METH OD TRACEABLE TO IDMS STANDARD Performed By: #### C BCA, BMP, 2157-03, 2638-12 #### [facility] ([id number]) [address] [place] [address] eGFR (CKD-EPI) NON-RACE DEPENDENT >90 Normal >59 [facility] Comment on above: Result Comment: Reported eGFR is based on the CKD-EPI 2020 equation that does not use a race coefficient. Performed By: #### C BCA, BMP, 2157-03, 2638-12 #### [facility] ([id number]) [address] [place] [address] Glucose [Mass/Vol] 85 mg/dL Normal 65-99 [facility] Comment on above: Performed By: #### C BCA, BMP, 2157-03, 2638-12 #### [facility] ([id number]) [facility] [place] [address] Potassium [Moles/Vol] 3.6 mmol/L Normal 3.5-5.0 [facility] Comment on above: Performed By: #### C BCA, BMP, 2157-03, 2638-12 #### [facility] ([id number]) [facility] [place] [address] Protein [Mass/Vol] 6.2 g/dL Normal 6.0-8.0 [facility] Comment on above: Performed By: #### C BCA, BMP, 2157-03, 2638-12 #### [facility] ([id number]) [facility] [place] [address] Sodium [Moles/Vol] 141 mmol/L Normal 134-146 [facility] Comment on above: Performed By: #### C BCA, BMP, 2157-03, 2638-12 #### [facility] ([id number]) [facility] [place] [address] Urea nitrogen [Mass/Vol] 4 mg/dL Low 5-23 [facility] Comment on above: Performed By: #### C BCA, BMP, 2157-03, 2638-12 #### [facility] ([id number]) [address] [place] [address] Myoglobin [Mass/Vol]on 10-18 SERUM MYOGLOBIN 90.2 ng/mL Normal 17.4-105.7 [facility] Comment on above: Performed By: #### C BCA, BMP, 2157-03, 2638-12 #### [facility] ([id number]) [address] [place] [address] CBC AND AUTO DIFFon 10-17-20 ABSOLUTE BASOPHIL 0.1 X10E9/L Normal 0.0-0.2 [facility] Comment on above: Performed By: #### C BCA, BMP, 2157-03, 2638-12 #### [facility] ([id number]) [facility] [place] [address] ABSOLUTE NEUTROPHIL 6.0 X10E9/L Normal 1.5-6.6 [facility] Comment on above: Performed By: #### C BCA, BMP, 2157-03, 2638-12 #### [facility] ([id number]) [facility] [place] [address] Basophils/100 WBC (Bld) 1.4 % Normal [facility] Comment on above: Performed By: #### C BCA, BMP, 2157-03, 2638-12 #### [facility] ([id number]) [facility] [place] [address] Eosinophils (Bld) [#/Vol] 0.1 10*3/uL Normal 0.0-0.4 [facility] Comment on above: Performed By: #### C BCA, BMP, 2157-03, 2638-12 #### [facility] ([id number]) [facility] [place] [address] Eosinophils/100 WBC (Bld) 1.8 % Normal [facility] Comment on above: Performed By: #### C BCA, BMP, 2157-03, 2638-12 #### [facility] ([id number]) [address] [place] [address] Erythrocyte distribution width (RBC) [Ratio] 13.9 % Normal 11.5-15.0 [facility] Comment on above: Performed By: #### C BCA, BMP, 2157-03, 2638-12 #### [facility] ([id number]) [address] [place] [address] Hematocrit (Bld) [Volume fraction] 40.2 % Normal 39-49 [facility] Comment on above: Performed By: #### C BCA, BMP, 2157-03, 2638-12 #### [facility] ([id number]) [address] [place] [address] Hemoglobin (Bld) [Mass/Vol] 13.4 g/dL Normal 13.0-17.0 [facility] Comment on above: Performed By: #### C BCA, BMP, 2157-03, 2638-12 #### [facility] ([id number]) [address] [place] [address] Lymphocytes (Bld) [#/Vol] 1.0 10*3/uL Normal 1.0-3.5 [facility] Comment on above: Performed By: #### C BCA, BMP, 2157-03, 2638-12 #### [facility] ([id number]) [address] [place] [address] Lymphocytes/100 WBC (Bld) 13.2 % Normal [facility] Comment on above: Performed By: #### C BCA, BMP, 2157-03, 2638-12 #### [facility] ([id number]) [address] [place] [address] MCH (RBC) [Entitic mass] 27.0 pg Normal 27-34 [facility] Comment on above: Performed By: #### C BCA, BMP, 2157-03, 2638-12 #### [facility] ([id number]) [address] [place] [address] MCHC (RBC) [Mass/Vol] 33.4 g/dL Normal 32-36 [facility] Comment on above: Performed By: #### C AGUEDA DIAZ, 2157-03, 2638-12 #### [facility] ([id number]) [address] [place] [address] MCV (RBC) [Entitic vol] 81 fL Normal 80-100 [facility] Comment on above: Performed By: #### C AGUEDA DIAZ, 2157-03, 2638-12 #### [facility] ([id number]) [address] [place] [address] Monocytes (Bld) [#/Vol] 0.6 10*3/uL Normal 0-0.9 [facility] Comment on above: Performed By: #### AGUEDA Salgado BCA, 2157-03, 2638-12 #### [facility] ([id number]) [address] [place] [address] Monocytes/100 WBC (Bld) 7.1 % Normal [facility] Comment on above: Performed By: #### AGUEDA Salgado BCA, 2157-03, 2638-12 #### [facility] ([id number]) [address] [place] [address] Neutrophils/100 WBC (Bld) 76.5 % Normal [facility] Comment on above: Performed By: #### AGUEDA Salgado BCA, 2157-03, 2638-12 #### [facility] ([id number]) [address] [place] [address] Platelet mean volume (Bld) [Entitic vol] 7.8 fL Normal 7-12 [facility] Comment on above: Performed By: #### AGUEDA Salgado BCA, 2157-03, 2638-12 #### [facility] ([id number]) [address] [place] [address] Platelets (Bld) [#/Vol] 298 10*3/uL Normal 150-450 [facility] Comment on above: Performed By: #### C BCA, BMP, 2157-03, 2638-12 #### [facility] ([id number]) [address] [place] [address] RBC COUNT 4.96 X10E12/L Normal 4.10-5.70 [facility] Comment on above: Performed By: #### C BCA, BMP, 2157-03, 2638-12 #### [facility] ([id number]) [facility] [place] [address] WBC (Bld) [#/Vol] 7.9 10*3/uL Normal 4.0-11.0 [facility] Comment on above: Performed By: #### C BCA, BMP, 2157-03, 2638-12 #### [facility] ([id number]) [facility] [place] [address] CK [Catalytic activity/Vol]o n 10-17-2024 CPK 697 U/L High 24-195 [facility] Comment on above: Performed By: #### C BCA, BMP, 2157-03, 2638-12 #### [facility] ([id number]) [facility] [place] [address] CPK 1116 U/L High 24-195 [facility] Comment on above: Performed By: #### C BCA, BMP, 2157-03, 2638-12 #### [facility] ([id number]) [facility] [place] [address] COMPREHENSIVE METABOLIC PANE Alex 10-17-2024 Albumin [Mass/Vol] 4.3 g/dL Normal 3.2-5.3 [facility] Comment on above: Performed By: #### C BCA, BMP, 2157-03, 2638-12 #### [facility] ([id number]) [facility] [place] [address] ALP [Catalytic activity/Vol] 73 U/L Normal 39-130 [facility] Comment on above: Performed By: #### C BCA, BMP, 2157-03, 2638-12 #### [facility] ([id number]) [address] [facility] [address] ALT [Catalytic activity/Vol] 64 U/L High 0-40 [facility] Comment on above: Performed By: #### C BCA, BMP, 2157-03, 2638-12 #### [facility] LAB ([id number]) [address] [address] Anion gap [Moles/Vol] 10 mmol/L Normal 5-15 [facility] Comment on above: Performed By: #### C BCA, BMP, 2157-03, 2638-12 #### [facility] ([id number]) [address] [place] [address] AST [Catalytic activity/Vol] 69 U/L High 0-41 [facility] Comment on above: Performed By: #### C BCA, BMP, 2157-03, 2638-12 #### [facility] ([id number]) [address] [place] [address] Bilirubin [Mass/Vol] 0.9 mg/dL Normal 0.3-1.2 [facility] Comment on above: Performed By: #### C BCA, BMP, 2157-03, 2638-12 #### [facility] ([id number]) [address] [place] [address] Calcium [Mass/Vol] 9.0 mg/dL Normal 8.5-10.5 [facility] Comment on above: Performed By: #### C BCA, BMP, 2157-03, 2638-12 #### [facility] ([id number]) [address] [address] Chloride [Moles/Vol] 108 mmol/L Normal 98-109 [facility] Comment on above: Performed By: #### C BCA, BMP, 2157-03, 2638-12 #### [facility] ([id number]) [address] [address] CO2 [Moles/Vol] 22 mmol/L Normal 22-32 [facility] Comment on above: Performed By: #### C EMILY, BMP, 2157-03, 2638-12 #### [facility] ([id number]) [address] [place] [address] Creatinine [Mass/Vol] 0.66 mg/dL Normal 0.60-1.30 [facility] Comment on above: Result Comment: METH OD TRACEABLE TO IDMS STANDARD Performed By: #### C EMILY, BMP, 2157-03, 2638-12 #### [facility] ([id number]) [address] [place] [address] eGFR (CKD-EPI) NON-RACE DEPENDENT >90 Normal >59 [facility] Comment on above: Result Comment: Reported eGFR is based on the CKD-EPI 2020 equation that does not use a race coefficient. Performed By: #### C EMILY, BMP, 2157-03, 2638-12 #### [facility] ([id number]) [address] [place] [address] Glucose [Mass/Vol] 95 mg/dL Normal 65-99 [facility] Comment on above: Performed By: #### C EMILY, BMP, 2157-03, 2638-12 #### [facility] ([id number]) [address] [place] [address] Potassium [Moles/Vol] 4.0 mmol/L Normal 3.5-5.0 [facility] Comment on above: Performed By: #### C BCA, BMP, 2157-03, 2638-12 #### [facility] ([id number]) [address] [place] [address] Protein [Mass/Vol] 7.2 g/dL Normal 6.0-8.0 [facility] Comment on above: Performed By: #### C EMILY, BMP, 2157-03, 2638-12 #### [facility] ([id number]) [address] [place] [address] Sodium [Moles/Vol] 140 mmol/L Normal 134-146 [facility] Comment on above: Performed By: #### C BCA, BMP, 2157-03, 2638-12 #### [facility] ([id number]) [address] [place] [address] Urea nitrogen [Mass/Vol] 3 mg/dL Low 5-23 [facility] Comment on above: Performed By: #### C BCA, BMP, 2157-03, 2638-12 #### [facility] ([id number]) [address] [place] [address] Myoglobin [Mass/Vol]on 10-17 SERUM MYOGLOBIN 139.8 ng/mL High 17.4-105.7 [facility] Comment on above: Performed By: #### C BCA, BMP, 2157-03, 2638-12 #### [facility] ([id number]) [facility] [place] [address] THYROID PROFILEon 10-17-2024 Free T4 [Mass/Vol] 1.31 ng/dL Normal 0.61-1.60 [facility] Comment on above: Performed By: #### C BCA, BMP, 2157-03, 2638-12 #### [facility] ([id number]) [address] [place] [address] TSH 0.87 uIU/mL Normal 0.49-4.67 [facility] Comment on above: Performed By: #### C BCA, BMP, 2157-03, 2638-12 #### [facility] ([id number]) [address] [place] [address] CBC AND AUTO DIFFon 10-16-20 ABSOLUTE BASOPHIL 0.0 X10E9/L Normal 0.0-0.2 [facility] Comment on above: Performed By: #### C BCA, BMP, 2157-03, 2638-12 #### [facility] ([id number]) [address] [place] [address] ABSOLUTE NEUTROPHIL 2.5 X10E9/L Normal 1.5-6.6 [facility] Comment on above: Performed By: #### C AGUEDA DIAZ, 2157-03, 2638-12 #### [facility] ([id number]) [address] [place] [address] Basophils/100 WBC (Bld) 1.0 % Normal [facility] Comment on above: Performed By: #### C EMILY, BMP, 2157-03, 2638-12 #### [facility] ([id number]) [address] [place] [address] Eosinophils (Bld) [#/Vol] 0.3 10*3/uL Normal 0.0-0.4 [facility] Comment on above: Performed By: #### C AGUEDA DIAZ, 2157-03, 2638-12 #### [facility] ([id number]) [address] [place] [address] Eosinophils/100 WBC (Bld) 7.1 % Normal [facility] Comment on above: Performed By: #### C EMILY, AGUEDA, 2157-03, 2638-12 #### [facility] ([id number]) [address] [place] [address] Erythrocyte distribution width (RBC) [Ratio] 13.6 % Normal 11.5-15.0 [facility] Comment on above: Performed By: #### C EMILY, AGUEDA, 2157-03, 2638-12 #### [facility] ([id number]) [address] [place] [address] Hematocrit (Bld) [Volume fraction] 35.7 % Low 39-49 [facility] Comment on above: Performed By: #### C EMILY, BMP, 2157-03, 2638-12 #### [facility] ([id number]) [address] [place] [address] Hemoglobin (Bld) [Mass/Vol] 11.8 g/dL Low 13.0-17.0 [facility] Comment on above: Performed By: #### C BCA, BMP, 2157-03, 2638-12 #### [facility] ([id number]) [address] [place] [address] Lymphocytes (Bld) [#/Vol] 1.3 10*3/uL Normal 1.0-3.5 [facility] Comment on above: Performed By: #### C BCA, BMP, 2157-03, 2638-12 #### [facility] ([id number]) [address] [place] [address] Lymphocytes/100 WBC (Bld) 27.0 % Normal [facility] Comment on above: Performed By: #### C BCA, BMP, 2157-03, 2638-12 #### [facility] ([id number]) [address] [place] [address] MCH (RBC) [Entitic mass] 26.9 pg Low 27-34 [facility] Comment on above: Performed By: #### C BCA, BMP, 2157-03, 2638-12 #### [facility] ([id number]) [address] [place] [address] MCHC (RBC) [Mass/Vol] 33.0 g/dL Normal 32-36 [facility] Comment on above: Performed By: #### C BCA, BMP, 2157-03, 2638-12 #### [facility] ([id number]) [facility] [place] [address] MCV (RBC) [Entitic vol] 82 fL Normal 80-100 [facility] Comment on above: Performed By: #### C BCA, BMP, 2157-03, 2638-12 #### [facility] ([id number]) [facility] [place] [address] Monocytes (Bld) [#/Vol] 0.5 10*3/uL Normal 0-0.9 [facility] Comment on above: Performed By: #### C BCA, BMP, 2157-03, 2638-12 #### [facility] ([id number]) [address] [place] [address] Monocytes/100 WBC (Bld) 11.1 % Normal [facility] Comment on above: Performed By: #### C BCA, BMP, 2157-03, 2638-12 #### [facility] ([id number]) [address] [place] [address] Neutrophils/100 WBC (Bld) 53.8 % Normal [facility] Comment on above: Performed By: #### C BCA, BMP, 2157-03, 2638-12 #### [facility] ([id number]) [address] [place] [address] Platelet mean volume (Bld) [Entitic vol] 7.5 fL Normal 7-12 [facility] Comment on above: Performed By: #### C BCA, BMP, 2157-03, 2638-12 #### [facility] ([id number]) [address] [place] [address] Platelets (Bld) [#/Vol] 204 10*3/uL Normal 150-450 [facility] Comment on above: Performed By: #### C BCA, BMP, 2157-03, 2638-12 #### [facility] ([id number]) [address] [place] [address] RBC COUNT 4.38 X10E12/L Normal 4.10-5.70 [facility] Comment on above: Performed By: #### C BCA, BMP, 2157-03, 2638-12 #### [facility] ([id number]) [address] [place] [address] WBC (Bld) [#/Vol] 4.7 10*3/uL Normal 4.0-11.0 [facility] Comment on above: Performed By: #### C BCA, BMP, 2157-03, 2638-12 #### [facility] ([id number]) [address] [place] [address] CK [Catalytic activity/Vol]o n 10-16-2024 CPK 2256 U/L High 24-195 [facility] Comment on above: Performed By: #### C BCA, BMP, 2157-03, 2638-12 #### [facility] ([id number]) [address] [place] [address] CPK 1917 U/L High 24-195 [facility] Comment on above: Performed By: #### C BCA, BMP, 2157-03, 2638-12 #### [facility] ([id number]) [address] [place] [address] COMPREHENSIVE METABOLIC PANE Alex 10-16-2024 Albumin [Mass/Vol] 3.6 g/dL Normal 3.2-5.3 [facility] Comment on above: Performed By: #### C BCA, BMP, 2157-03, 2638-12 #### [facility] ([id number]) [address] [place] [address] ALP [Catalytic activity/Vol] 57 U/L Normal 39-130 [facility] Comment on above: Performed By: #### C BCA, BMP, 2157-03, 2638-12 #### [facility] ([id number]) [address] [place] [address] ALT [Catalytic activity/Vol] 60 U/L High 0-40 [facility] Comment on above: Performed By: #### C BCA, BMP, 2157-03, 2638-12 #### [facility] ([id number]) [address] [place] [address] Anion gap [Moles/Vol] 7 mmol/L Normal 5-15 [facility] Comment on above: Performed By: #### C BCA, BMP, 2157-03, 2638-12 #### [facility] ([id number]) [address] [place] [address] AST [Catalytic activity/Vol] 94 U/L High 0-41 [facility] Comment on above: Performed By: #### C BCA, BMP, 2157-03, 2638-12 #### [facility] ([id number]) [address] [place] [address] Bilirubin [Mass/Vol] 0.9 mg/dL Normal 0.3-1.2 [facility] Comment on above: Performed By: #### C BCA, BMP, 2157-03, 2638-12 #### [facility] ([id number]) [address] [place] [address] Calcium [Mass/Vol] 8.3 mg/dL Low 8.5-10.5 [facility] Comment on above: Performed By: #### C BCA, BMP, 2157-03, 2638-12 #### [facility] ([id number]) [address] [place] [address] Chloride [Moles/Vol] 110 mmol/L High 98-109 [facility] Comment on above: Performed By: #### C BCA, BMP, 2157-03, 2638-12 #### [facility] ([id number]) [address] [place] [address] CO2 [Moles/Vol] 24 mmol/L Normal 22-32 [facility] Comment on above: Performed By: #### C BCA, BMP, 2157-03, 2638-12 #### [facility] ([id number]) [address] [place] [address] Creatinine [Mass/Vol] 0.77 mg/dL Normal 0.60-1.30 [facility] Comment on above: Result Comment: METH OD TRACEABLE TO IDMS STANDARD Performed By: #### C BCA, BMP, 2157-03, 2638-12 #### [facility] ([id number]) [address] [place] [address] eGFR (CKD-EPI) NON-RACE DEPENDENT >90 Normal >59 [facility] Comment on above: Result Comment: Reported eGFR is based on the CKD-EPI 2020 equation that does not use a race coefficient. Performed By: #### C BCA, BMP, 2157-03, 2638-12 #### [facility] ([id number]) [address] [place] [address] Glucose [Mass/Vol] 90 mg/dL Normal 65-99 [facility] Comment on above: Performed By: #### C BCA, BMP, 2157-03, 2638-12 #### [facility] ([id number]) [address] [place] [address] Potassium [Moles/Vol] 3.9 mmol/L Normal 3.5-5.0 [facility] Comment on above: Performed By: #### C BCA, BMP, 2157-03, 2638-12 #### [facility] ([id number]) [address] [place] [address] Protein [Mass/Vol] 5.9 g/dL Low 6.0-8.0 [facility] Comment on above: Performed By: #### C BCA, BMP, 2157-03, 2638-12 #### [facility] ([id number]) [address] [place] [address] Sodium [Moles/Vol] 141 mmol/L Normal 134-146 [facility] Comment on above: Performed By: #### C BCA, BMP, 2157-03, 2638-12 #### [facility] ([id number]) [address] [place] [address] Urea nitrogen [Mass/Vol] 5 mg/dL Normal 5-23 [facility] Comment on above: Performed By: #### C BCA, BMP, 2157-03, 2638-12 #### [facility] ([id number]) [address] [place] [address] MAGNESIUMon 10-16-2024 Magnesium [Mass/Vol] 2.0 mg/dL Normal 1.8-2.6 [facility] Comment on above: Performed By: #### C BCA, BMP, 2157-03, 2638-12 #### [facility] ([id number]) [address] [place] [address] Myoglobin [Mass/Vol]on 10-16 SERUM MYOGLOBIN 166.4 ng/mL High 17.4-105.7 [facility] Comment on above: Performed By: #### C BCA, BMP, 2157-03, 2638-12 #### [facility] ([id number]) [address] [place] [address] SERUM MYOGLOBIN 107.0 ng/mL High 17.4-105.7 [facility] Comment on above: Performed By: #### C BCA, BMP, 2157-03, 2638-12 #### [facility] ([id number]) [address] [place] [address] Procalcitonin IA [Mass/Vol]o n 10-16-2024 PROCALCITONIN 0.08 ng/mL High <0.05 [facility] Comment on above: Result Comment: NOTE <0.50 ng/mL - Low risk of severe sepsis and/or septic shock. <2.00 ng/mL - Recommend retesting within 6-24 hours. >2.00 ng/mL - High risk of sepsis and/or septic shock. Performed By: #### C BCA, BMP, 2157-03, 2638-12 #### [facility] ([id number]) [address] [place] [address] URINALYSISon 10-16-2024 Bilirubin Ql (U) Negative Normal NEG [facility] Comment on above: Performed By: #### C BCA, BMP, 2157-03, 2638-12 #### [facility] ([id number]) [address] [place] [address] BLOOD/HGB Negative Normal NEG [facility] Comment on above: Performed By: #### C BCA, BMP, 2157-03, 2638-12 #### [facility] ([id number]) [address] [place] [address] Color (U) YELLOW Normal YELLOW [facility] Comment on above: Performed By: #### C EMILY, BMP, 2157-03, 2638-12 #### [facility] ([id number]) [address] [place] [address] Glucose Ql (U) Negative Normal NEG [facility] Comment on above: Performed By: #### C EMILY, AGUEDA, 2157-03, 2638-12 #### [facility] ([id number]) [address] [place] [address] Ketones Ql (U) Negative Normal NEG [facility] Comment on above: Performed By: #### C EMILY, AGUEDA, 2157-03, 2638-12 #### [facility] ([id number]) [address] [place] [address] Leukocyte esterase Test strip Ql (U) Negative Normal NEG [facility] Comment on above: Performed By: #### C AGUEDA DIAZ, 2157-03, 2638-12 #### [facility] ([id number]) [address] [place] [address] Nitrite Ql (U) Negative Normal NEG [facility] Comment on above: Performed By: #### C EMILY, AGUEDA, 2157-03, 2638-12 #### [facility] ([id number]) [address] [place] [address] pH (U) 6.0 [pH] Normal 5.0-8.5 [facility] Comment on above: Performed By: #### C EMILY, BMP, 2157-03, 2638-12 #### [facility] ([id number]) [address] [place] [address] Protein Ql (U) Negative Normal NEG [facility] Comment on above: Performed By: #### C EMILY, BMP, 2157-03, 2638-12 #### [facility] ([id number]) [address] [place] [address] Specific gravity (U) [Rel density] 1.015 Normal 1.003-1.035 [facility] Comment on above: Performed By: #### C BCA, BMP, 2157-03, 2638-3 #### [facility] ([id number]) [address] [place] [address] TURBIDITY CLEAR Normal CLEAR [facility] Comment on above: Performed By: #### C BCA, BMP, 2157-03, 2638-3 #### [facility] ([id number]) [address] [place], [place] [address] Urobilinogen Qn (U) 0.2 {Aixa'U}/dL Normal <1.1 [facility] Comment on above: Performed By: #### C BCA, BMP, 2157-03, 3 #### [facility] ([id number]) [address] [place] [address] CBC AND AUTO DIFFon 1228-20 24 ABSOLUTE BASOPHIL 0.1 X10E9/L Normal 0.0-0.2 [facility] Comment on above: Performed By: #### C BCA, CMP, 2157-03, 79195-2, 2638-3 #### [facility] ([id number]) [address] [place], [place] [address] #### HA1C #### [facility] ([id number]) [address] [place] [address] ABSOLUTE NEUTROPHIL 6.6 X10E9/L Normal 1.5-6.6 [facility] Comment on above: Performed By: #### C BCA, CMP, 2157-03, 97620-2, 2638-3 #### [facility] ([id number]) [address] [place] [address] #### HA1C #### [facility] ([id number]) [address] [place] [address] Basophils/100 WBC (Bld) 0.6 % Normal P [facility] Comment on above: Performed By: #### C BCA, CMP, 6, 88122-0, 9-3 #### [facility] ([id number]) [address] [place] [address] #### HA1C #### [facility] ([id number]) [address] [place] [address] Eosinophils (Bld) [#/Vol] 0.2 10*3/uL Normal 0.0-0.4 [facility] Comment on above: Performed By: #### C BCA, CMP, 6, 78451-0, 9-3 #### [facility] ([id number]) [address] [place] [address] #### HA1C #### [facility] ([id number]) [address] [facility] [address] [place] [address] Eosinophils/100 WBC (Bld) 1.9 % Normal [facility] Comment on above: Performed By: #### C BCA, CMP, 2157-03, 16310-3, 9-3 #### [facility] ([id number]) [address] [place] [address] #### HA1C #### [facility] ([id number]) [address] [facility] [place] [address] Erythrocyte distribution width (RBC) [Ratio] 13.5 % Normal 11.5-15.0 [facility] Comment on above: Performed By: #### C BCA, CMP, 2156-6, 85813-9, 9-3 #### [facility] ([id number]) [address] [place] [address] #### HA1C #### [facility] ([id number]) [address] [place] [address] Hematocrit (Bld) [Volume fraction] 40.8 % Normal 39-49 [facility] Comment on above: Performed By: #### C BCA, CMP, 6, 57773-2, 9-3 #### [facility] ([id number]) [address] [place] [address] #### HA1C #### [facility] ([id number]) [address] [place] [address] Hemoglobin (Bld) [Mass/Vol] 13.5 g/dL Normal 13.0-17.0 [facility] Comment on above: Performed By: #### C BCA, CMP, 2157-03, 82119-0, 2638-3 #### [facility] ([id number]) [address] [place] [address] #### HA1C #### [facility] ([id number]) [address] [place] [address] Lymphocytes (Bld) [#/Vol] 1.9 10*3/uL Normal 1.0-3.5 [facility] Comment on above: Performed By: #### C BCA, CMP, 2157-03, , 2638-3 #### [facility] ([id number]) [address] [place] [address] #### HA1C #### [facility] ([id number]) [address] [place] [address] Lymphocytes/100 WBC (Bld) 20.4 % Normal [facility] Comment on above: Performed By: #### C BCA, CMP, 6, 41294-2, 2638-3 #### [facility] ([id number]) [address] [place] [address] #### HA1C #### [facility] ([id number]) [address] [place] [address] MCH (RBC) [Entitic mass] 26.8 pg Low 27-34 [facility] Comment on above: Performed By: #### C BCA, CMP, 2157-03, 84059-5, 2639-3 #### [facility] ([id number]) [address] [place] [address] #### HA1C #### [facility] ([id number]) [address] [facility], [address] [place] [address] MCHC (RBC) [Mass/Vol] 33.2 g/dL Normal 32-36 [facility] Comment on above: Performed By: #### C BCA, CMP, 2157-03, 84497-2, 2639-3 #### [facility] ([id number]) [address] [place] [address] #### HA1C #### [facility] ([id number]) [address] [facility], [address] [place] [address] MCV (RBC) [Entitic vol] 81 fL Normal 80-100 P [facility] Comment on above: Performed By: #### C BCA, CMP, 2157-03, 35526-9, 9-3 #### [facility] ([id number]) [address] [place] [address] #### HA1C #### [facility] ([id number]) [address] [facility], [address] [place] [address] Monocytes (Bld) [#/Vol] 0.8 10*3/uL Normal 0-0.9 [facility] Comment on above: Performed By: #### C BCA, CMP, 2157-03, 56967-8, 2639-3 #### [facility] ([id number]) [address] [place] [address] #### HA1C #### [facility] ([id number]) [address] [place] [address], [address] [place] [address] Monocytes/100 WBC (Bld) 8.0 % Normal P [facility] Comment on above: Performed By: #### C BCA, CMP, 2157-03, 21575-1, 9-3 #### [facility] ([id number]) [address] [place] [address] #### HA1C #### [facility] ([id number]) [address] [place] [address], [facility] [address] [place] [address] Neutrophils/100 WBC (Bld) 69.1 % Normal [facility] Comment on above: Performed By: #### C BCA, CMP, 2157-03, 90650-8, 2638-3 #### [facility] ([id number]) [address] [place] [address] #### HA1C #### [facility] ([id number]) [address] [place] [address], [address] [address] Platelet mean volume (Bld) [Entitic vol] 7.8 fL Normal 7-12 [facility] Comment on above: Performed By: #### C BCA, CMP, 2157-03, , 2638-3 #### [facility] ([id number]) [address] [place] [address] #### HA1C #### [facility] ([id number]) [address] [place] [address] Platelets (Bld) [#/Vol] 280 10*3/uL Normal 150-450 [facility] Comment on above: Performed By: #### C BCA, CMP, 2157-03, , 2638-3 #### [facility] ([id number]) [address] [place] [address] #### HA1C #### [facility] ([id number]) [address] [place] [address], [address] [address] RBC COUNT 5.05 X10E12/L Normal 4.10-5.70 [facility] Comment on above: Performed By: #### C BCA, CMP, 2157-03, , 2638-3 #### [facility] ([id number]) [address] [place] [address] #### HA1C #### [facility] ([id number]) [address] [place] [address], [address] [place] [address] WBC (Bld) [#/Vol] 9.5 10*3/uL Normal 4.0-11.0 [facility] Comment on above: Performed By: #### C BCA, CMP, 2156-6, 09725-4, 2638-3 #### [facility] ([id number]) [address] [place] [address] #### HA1C #### [facility] ([id number]) [address] [place] [address], [address] [place] [address] CK [Catalytic activity/Vol]o n 10-15-2024 CPK 3520 U/L High 24-195 [facility] Comment on above: Performed By: #### C BCA, BMP, 2157-03, 2638-3 #### [facility] ([id number]) [address] [place] [address] CPK 3984 U/L High 24-195 [facility] Comment on above: Performed By: #### C BCA, CMP, 2156-6, 19686-4, 2638-3 #### [facility] ([id number]) [address] [place] [address] #### HA1C #### [facility] ([id number]) [address] [place] [address], [address] [place] [address] COMPREHENSIVE METABOLIC PANE Alex 10-15-2024 Albumin [Mass/Vol] 4.4 g/dL Normal 3.2-5.3 [facility] Comment on above: Performed By: #### C BCA, CMP, 2156-6, 67735-5, 9-3 #### [facility] ([id number]) [address] [place] [address] #### HA1C #### [facility] ([id number]) [address] [facility], [address] [place] [address] ALP [Catalytic activity/Vol] 75 U/L Normal 39-130 [facility] Comment on above: Performed By: #### C BCA, CMP, 7-6, 24396-6, 2639-3 #### [facility] ([id number]) [address] [place] [address] #### HA1C #### [facility] ([id number]) [address] [facility], [address] [place] [address] ALT [Catalytic activity/Vol] 68 U/L High 0-40 [facility] Comment on above: Performed By: #### C BCA, CMP, 2156-6, 83718-7, 9-3 #### [facility] [facility] ([id number]) [address] [place] [address] 14096 #### HA1C #### [facility] ([id number]) [address] [place] [address], [address] [place] [address] Anion gap [Moles/Vol] 9 mmol/L Normal 5-15 [facility] Comment on above: Performed By: #### C BCA, CMP, 2156-6, 03555-4, 9-3 #### [facility] ([id number]) [address] [place] [address] 40342 #### HA1C #### [facility] ([id number]) [address] [facility], [address] [place] [address] AST [Catalytic activity/Vol] 136 U/L High 0-41 [facility] Comment on above: Performed By: #### C BCA, CMP, 2156-6, 76981-9, 9-3 #### [facility] ([id number]) [address] [place] [address] 8[address]11 #### HA1C #### [facility] ([id number]) [address] [facility], [address] [place] [address] Bilirubin [Mass/Vol] 1.3 mg/dL High 0.3-1.2 [facility] Comment on above: Performed By: #### C BCA, CMP, 2157-03, , 2638-3 #### [facility] ([id number]) [address] [place] [address] #### HA1C #### [facility] ([id number]) [address] [facility], [address] [place] [address] Calcium [Mass/Vol] 9.5 mg/dL Normal 8.5-10.5 [facility] Comment on above: Performed By: #### C BCA, CMP, 2157-03, , 2638-3 #### [facility] ([id number]) [address] [place] [address] 80563 #### HA1C #### [facility] ([id number]) [address] [facility], [address] [place] [address] Chloride [Moles/Vol] 105 mmol/L Normal 98-109 [facility] Comment on above: Performed By: #### C BCA, CMP, 2157-03, , 2638- #### [facility] ([id number]) [address] [place] [address] 01348 #### HA1C #### [facility] ([id number]) [address] [facility], [address] [place] [address] CO2 [Moles/Vol] 23 mmol/L Normal 22-32 [facility] Comment on above: Performed By: #### C BCA, CMP, 2157-03, , 2638-3 #### [facility] ([id number]) [address] [place] [address] #### HA1C #### [facility] ([id number]) [address] [facility], [address] [place] [address] Creatinine [Mass/Vol] 0.94 mg/dL Normal 0.60-1.30 [facility] Comment on above: Result Comment: METH OD TRACEABLE TO IDMS STANDARD Performed By: #### C BCA, CMP, 6, 81714-3, 9-3 #### [facility] ([id number]) [facility] [place] [address] #### HA1C #### [facility] ([id number]) [address] [facility] [facility] [address] [place] [address] eGFR (CKD-EPI) NON-RACE DEPENDENT >90 Normal >59 [facility] Comment on above: Result Comment: Reported eGFR is based on the CKD-EPI 2020 equation that does not use a race coefficient. Performed By: #### C BCA, CMP, 2157-03, , 2638-3 #### [facility] ([id number]) [address] [place] [address] 28[address] #### HA1C #### [facility] ([id number]) [address] [address] Glucose [Mass/Vol] 131 mg/dL High 65-99 [facility] Comment on above: Performed By: #### C BCA, CMP, 2157-03, , 2638-3 #### [facility] ([id number]) [address] [place] [address] 31470 #### HA1C #### [facility] ([id number]) [address] [facility] [address] [place] [address] Potassium [Moles/Vol] 4.0 mmol/L Normal 3.5-5.0 [facility] Comment on above: Performed By: #### C BCA, CMP, 2157-03, 80087-4, 2638-3 #### [facility] ([id number]) [address] [place] [address] 30269 #### HA1C #### [facility] ([id number]) [address] [facility], [address] [place] [address] Protein [Mass/Vol] 7.5 g/dL Normal 6.0-8.0 [facility] Comment on above: Performed By: #### C BCA, CMP, 2156-6, 95371-1, 9-3 #### [facility] ([id number]) [address] [place] [address] 84323 #### HA1C #### [facility] ([id number]) [address] [facility], [address] [place] [address] Sodium [Moles/Vol] 137 mmol/L Normal 134-146 [facility] Comment on above: Performed By: #### C BCA, CMP, 2156-6, 46436-0, 9-3 #### [facility] ([id number]) [address] [place] [address] 35900 #### HA1C #### [facility] ([id number]) [address] [place] [address], [address] [place] [address] Urea nitrogen [Mass/Vol] 11 mg/dL Normal 5-23 [facility] Comment on above: Performed By: #### C BCA, CMP, 2156-6, 70459-5, 2639-3 #### [facility] ([id number]) [address] [place] [address] 36698 #### HA1C #### [facility] ([id number]) [address] [place] [address], [address] [place] [address] HGB A1C (GLYCO-HGB)on 2023 Glucose [Mass/Vol] 114 mg/dL Normal [facility] Comment on above: Performed By: #### C BCA, BMP, 2156-, 9-3 #### [facility] ([id number]) [facility] [place] [address] HbA1c (Bld) [Mass fraction] 5.6 % Normal 4.4-5.6 [facility] Comment on above: Result Comment: NOTE ADA Guidelines Result HgbA1c Normal : less than 5.7 % Prediabetes : 5.7 % to 6.4 % Diabetes : > 6.4 % Use with caution in patients with abnormal hemoglobin variants as the half-life of red blood cells and in vivo glycation rates are affected. Performed By: #### C BCA, BMP, 2157-03, 2638-12 #### [facility] ([id number]) [address] [place] [address] MAGNESIUMon 10-15-2024 Magnesium [Mass/Vol] 2.0 mg/dL Normal 1.8-2.6 [facility] Comment on above: Performed By: #### C EMILY, CMP, 2157-03, , 2638-12 #### [facility] ([id number]) [address] [place] [address] 92032 #### HA1C #### [facility] ([id number]) [address] [place] [address], [address] [place] [address] Myoglobin [Mass/Vol]on 10-15 [facility] MYOGLOBIN 223.3 ng/mL High 17.4-105.7 [facility] Comment on above: Performed By: #### C BCA, BMP, 2157-03, 2638-12 #### [facility] ([id number]) [address] [place] [address] SERUM MYOGLOBIN 292.8 ng/mL High 17.4-105.7 [facility] Comment on above: Performed By: #### C BCA, CMP, 2157-03, , 2638-12 #### [facility] ([id number]) [address] [place] [address] 969[address] #### HA1C #### [facility] ([id number]) [address] [place] [address], [address] [place] [address] PHOSPHORUSon 10-15-2024 Phosphate [Mass/Vol] 3.5 mg/dL Normal 2.4-4.9 [facility] Comment on above: Performed By: #### C BCA, BMP, 2157-03, 3 #### [facility] ([id number]) [address] [place] [address] BASIC METABOLIC PANLon 10-14 Anion gap [Moles/Vol] 9 mmol/L Normal 5-15 [facility] Comment on above: Performed By: #### C BCA, BMP, 2157-03, 2638-12 #### [facility] ([id number]) [address] [place] [address] Calcium [Mass/Vol] 9.6 mg/dL Normal 8.5-10.5 [facility] Comment on above: Performed By: #### C BCA, BMP, 2157-03, 2638-12 #### [facility] ([id number]) [address] [place] [address] Chloride [Moles/Vol] 103 mmol/L Normal 98-109 [facility] Comment on above: Performed By: #### C BCA, BMP, 2157-03, 2638-12 #### [facility] ([id number]) [address] [place] [address] CO2 [Moles/Vol] 25 mmol/L Normal 22-32 [facility] Comment on above: Performed By: #### C BCA, BMP, 2157-03, 2638-12 #### [facility] ([id number]) [address] [place] [address] Creatinine [Mass/Vol] 1.01 mg/dL Normal 0.60-1.30 [facility] Comment on above: Result Comment: METH OD TRACEABLE TO IDMS STANDARD Performed By: #### C BCA, BMP, 2157-03, 2638-12 #### [facility] ([id number]) [address] [place] [address] eGFR (CKD-EPI) NON-RACE DEPENDENT >90 Normal >59 [facility] Comment on above: Result Comment: Reported eGFR is based on the CKD-EPI 2020 equation that does not use a race coefficient. Performed By: #### C BCA, BMP, 2157-03, 3 #### [facility] ([id number]) [address] [place] [address] Glucose [Mass/Vol] 128 mg/dL High 65-99 [facility] Comment on above: Performed By: #### C BCA, BMP, 2157-03, 2638-12 #### [facility] ([id number]) [address] [place] [address] Potassium [Moles/Vol] 3.4 mmol/L Low 3.5-5.0 [facility] Comment on above: Performed By: #### C BCA, BMP, 2157-03, 2638-12 #### [facility] ([id number]) [address] [place] [address] Sodium [Moles/Vol] 137 mmol/L Normal 134-146 [facility] Comment on above: Performed By: #### C BCA, BMP, 2157-03, 2638-12 #### [facility] ([id number]) [address] [place] [address] Urea nitrogen [Mass/Vol] 11 mg/dL Normal 5-23 [facility] Comment on above: Performed By: #### C BCA, BMP, 2157-03, 2638-12 #### [facility] ([id number]) [address] [place] [address] CBC AND AUTO DIFFon 10-14-20 24 ABSOLUTE BASOPHIL 0.0 X10E9/L Normal 0.0-0.2 [facility] Comment on above: Performed By: #### C BCA, BMP, 2157-03, 3 #### [facility] ([id number]) [address] [place] [address] ABSOLUTE NEUTROPHIL 9.7 X10E9/L High 1.5-6.6 [facility] Comment on above: Performed By: #### C AGUEDA DIAZ, 2157-03, 2638-12 #### [facility] ([id number]) [address] [place] [address] Basophils/100 WBC (Bld) 0.3 % Normal [facility] Comment on above: Performed By: #### C EMILY, AGUEDA, 2157-03, 2638-12 #### [facility] ([id number]) [address] [place] [address] Eosinophils (Bld) [#/Vol] 0.0 10*3/uL Normal 0.0-0.4 [facility] Comment on above: Performed By: #### C AGUEDA DIAZ, 2157-03, 2638-12 #### [facility] ([id number]) [address] [place] [address] Eosinophils/100 WBC (Bld) 0.3 % Normal [facility] Comment on above: Performed By: #### C AGUEDA DIAZ, 2157-03, 2638-12 #### [facility] ([id number]) [address] [place] [address] Erythrocyte distribution width (RBC) [Ratio] 13.3 % Normal 11.5-15.0 [facility] Comment on above: Performed By: #### C AGUEDA DIAZ, 2157-03, 2638-12 #### [facility] ([id number]) [address] [place] [address] Hematocrit (Bld) [Volume fraction] 38.0 % Low 39-49 [facility] Comment on above: Performed By: #### C AGUEDA DIAZ, 2157-03, 2638-12 #### [facility] ([id number]) [address] [place] [address] Hemoglobin (Bld) [Mass/Vol] 12.7 g/dL Low 13.0-17.0 [facility] Comment on above: Performed By: #### C EMILY, BMP, 2157-03, 2638-12 #### [facility] ([id number]) [address] [place] [address] Lymphocytes (Bld) [#/Vol] 1.5 10*3/uL Normal 1.0-3.5 [facility] Comment on above: Performed By: #### C EMILY, BMP, 2157-03, 2638-12 #### [facility] ([id number]) [address] [place] [address] Lymphocytes/100 WBC (Bld) 11.9 % Normal [facility] Comment on above: Performed By: #### C EMILY, BMP, 2157-03, 2638-12 #### [facility] ([id number]) [address] [place] [address] MCH (RBC) [Entitic mass] 26.7 pg Low 27-34 [facility] Comment on above: Performed By: #### C EMILY, BMP, 2157-03, 2638-12 #### [facility] ([id number]) [address] [place] [address] MCHC (RBC) [Mass/Vol] 33.5 g/dL Normal 32-36 [facility] Comment on above: Performed By: #### C EMILY, BMP, 2157-03, 2638-12 #### [facility] ([id number]) [address] [place] [address] MCV (RBC) [Entitic vol] 80 fL Normal 80-100 [facility] Comment on above: Performed By: #### C EMILY, BMP, 2157-03, 2638-12 #### [facility] ([id number]) [facility] [place] [address] Monocytes (Bld) [#/Vol] 1.3 10*3/uL High 0-0.9 [facility] Comment on above: Performed By: #### C BCA, BMP, 2157-03, 2638-12 #### [facility] ([id number]) [address] [place] [address] Monocytes/100 WBC (Bld) 10.3 % Normal [facility] Comment on above: Performed By: #### C BCA, BMP, 2157-03, 2638-12 #### [facility] ([id number]) [address] [place] [address] Neutrophils/100 WBC (Bld) 77.2 % Normal [facility] Comment on above: Performed By: #### C BCA, BMP, 2157-03, 2638-12 #### [facility] ([id number]) [address] [place] [address] Platelet mean volume (Bld) [Entitic vol] 7.4 fL Normal 7-12 [facility] Comment on above: Performed By: #### Naomi BCA, BMP, 2157-03, 2638-12 #### [facility] ([id number]) [address] [place] [address] Platelets (Bld) [#/Vol] 308 10*3/uL Normal 150-450 [facility] Comment on above: Performed By: #### C BCA, BMP, 2157-03, 2638-12 #### [facility] ([id number]) [address] [place] [address] RBC COUNT 4.76 X10E12/L Normal 4.10-5.70 [facility] Comment on above: Performed By: #### C BCA, BMP, 2157-03, 2638-12 #### [facility] ([id number]) [address] [place] [address] WBC (Bld) [#/Vol] 12.6 10*3/uL High 4.0-11.0 [facility] Comment on above: Performed By: #### Naomi BCA, BMP, 2157-03, 2638-12 #### [facility] ([id number]) [address] [place] [address] CK [Catalytic activity/Vol]o n 10-14-2024 CPK 3957 U/L High 24-195 [facility] Comment on above: Performed By: #### C BCA, BMP, 2157-03, 2638-3 #### [facility] ([id number]) [address] [place] [address] Myoglobin [Mass/Vol]on 10-14 SERUM MYOGLOBIN 1012.6 ng/mL High 17.4-105.7 [facility] Comment on above: Performed By: #### C BCA, BMP, 2157-03, 2638-3 #### [facility] ([id number]) [address] [place] [address] RESP PATHOGENS/QKZP-KtT-[id number] 10-14-2024 Respiratory pathogens DNA and RNA panel DUC+non-probe (Nph) SPECIMEN SOURCE NASO PHARYNX ADENOVIRUS Not detected (qualifier value) CORONAVIRUS 229E Not detected (qualifier value) CORONAVIRUS HKU1 Not detected (qualifier value) CORONAVIRUS NL63 Not detected (qualifier value) CORONAVIRUS OC43 Not detected (qualifier value) HUMAN METAPNEUVIRUS Not detected (qualifier value) RHINO/ENTEROVIRUS Not detected (qualifier value) INFLUENZA A Not detected (qualifier value) INFLUENZA B Not detected (qualifier value) PARAINFLUENZA 1 Not detected (qualifier value) PARAINFLUENZA 2 Not detected (qualifier value) PARAINFLUENZA 3 Not detected (qualifier value) PARAINFLUENZA 4 Not detected (qualifier value) RESP SYNCYTIAL VIRUS Not detected (qualifier value) BORD PARAPERTUSSIS Not detected (qualifier value) BORDETELLA PERTUSSIS Not detected (qualifier value) CHLAM.PNEUMONIAE Not detected (qualifier value) MYCO. PNEUMONIAE Not detected (qualifier value) SARS CoV 2 Detected (qualifier value) NOTE The [employer] Respiratory Panel 2.1 (RP2.1) is a multiplexed nucleic acid test intended for the simultaneous qualitative detection and differentiation of nucleic acid from multiple viral and bacterial respiratory organisms, including nucleic acid from Severe Acute Respiratory Syndrome Coronavirus 2 (SARS-CoV-2), in nasopharyngeal swabs obtained from individuals suspected of COVID-19 by their healthcare provider. Testing is limited to laboratories certified under the Clinical Laboratory Improvement Amendments of 1988 (CLIA), to perform high complexity or moderate complexity tests. SARS-CoV-2 RNA and nucleic acids from the other respiratory viral and bacterial organisms identified by this test are generally detectable in nasopharyngeal swabs during the acute phase of infection. The detection and identification of specific viral and bacterial nucleic acids from individuals exhibiting signs and/or symptoms of respiratory infection is indicative of the presence of the identified microorganism and aids in the diagnosis of respiratory infection if used in conjunction with other clinical and epidemiological information. Positive results are indicative of the presence of the identified organism, but do not rule out co-infection with other pathogens. The agent(s) detected by the [employer]iDAQFire RP2.1 may not be the definite cause of disease and clinical correlation with patient history and other diagnostic information is necessary to determine patient infection status. Negative results in the setting of a respiratory illness may be due to infection with pathogens not detected by this test, or lower respiratory tract infection that may not be detected by a nasopharyngeal specimen. Negative results do not preclude SARS-CoV-2 infection and should not be used as the sole basis for patient management decisions. Negative JIM-CoV-2 results must be combined with clinical observations, patient history and epidemiological information. Negative results for other organisms identified by the test may require additional laboratory testing when evaluating a patient with possible respiratory tract infection. Normal [facility] Comment on above: Performed By: #### 8 2159-02 #### [facility] ([id number]) [address] [place] [address] [facility] ([id number]) [address] [place] [address], [address] [place] [address] ACETAMINOPHENon 10-12-2024 Acetaminophen [Mass/Vol] 2.0 ug/mL Low 10.0-30.0 [facility] Comment on above: Result Comment: Refe rence ranges are for therapeutic limits. Performed By: #### C BCA, CMP, 1988-02 #### [facility] ([id number]) [address] [facility], [place] [address] CBC AND AUTO DIFFon 10-12-20 ABSOLUTE BASOPHIL 0.0 X10E9/L Normal 0.0-0.2 [facility] Comment on above: Performed By: #### [facility], 1988-02 #### [facility] ([id number]) [address] [place] [address] ABSOLUTE NEUTROPHIL 6.6 X10E9/L Normal 1.5-6.6 [facility] Comment on above: Performed By: #### [facility], 1988-02 #### [facility] ([id number]) [address] [place] [address] Basophils/100 WBC (Bld) 0.2 % Normal [facility] Comment on above: Performed By: #### [facility], 1988-02 #### [facility] ([id number]) [address] [place] [address] Eosinophils (Bld) [#/Vol] 0.1 10*3/uL Normal 0.0-0.4 [facility] Comment on above: Performed By: #### [facility], 1988-02 #### [facility] ([id number]) [address] [place] [address] Eosinophils/100 WBC (Bld) 0.8 % Normal [facility] Comment on above: Performed By: #### [facility], 1988-02 #### [facility] ([id number]) [address] [place] [address] Erythrocyte distribution width (RBC) [Ratio] 13.6 % Normal 11.5-15.0 [facility] Comment on above: Performed By: #### [facility], 1988-02 #### [facility] ([id number]) [address] [place] [address] Hematocrit (Bld) [Volume fraction] 41.5 % Normal 39-49 [facility] Comment on above: Performed By: #### [facility], 1988-02 #### [facility] ([id number]) [address] [place] [address] Hemoglobin (Bld) [Mass/Vol] 14.2 g/dL Normal 13.0-17.0 [facility] Comment on above: Performed By: #### [facility], 1988-02 #### [facility] ([id number]) [address] [place] [address] Lymphocytes (Bld) [#/Vol] 1.3 10*3/uL Normal 1.0-3.5 [facility] Comment on above: Performed By: #### [facility], 1988-02 #### [facility] ([id number]) [address] [place] [address] Lymphocytes/100 WBC (Bld) 14.5 % Normal [facility] Comment on above: Performed By: #### [facility], 1988-02 #### [facility] ([id number]) [address] [place] [address]80 MCH (RBC) [Entitic mass] 27.9 pg Normal 27-34 [facility] Comment on above: Performed By: #### [facility], 1988-02 #### [facility] ([id number]) [address] [place] [address] MCHC (RBC) [Mass/Vol] 34.3 g/dL Normal 32-36 [facility] Comment on above: Performed By: #### [facility], 1988-02 #### [facility] ([id number]) [address] [place] [address] MCV (RBC) [Entitic vol] 81 fL Normal 80-100 [facility] Comment on above: Performed By: #### [facility], 1988-02 #### [facility] ([id number]) [address] [place] [address] Monocytes (Bld) [#/Vol] 0.8 10*3/uL Normal 0-0.9 [facility] Comment on above: Performed By: #### [facility], 1988-02 #### [facility] ([id number]) [address] [place] [address] 22612 Monocytes/100 WBC (Bld) 9.2 % Normal [facility] Comment on above: Performed By: #### [facility], 1988-02 #### [facility] ([id number]) [address] [place] [address] Neutrophils/100 WBC (Bld) 75.3 % Normal [facility] Comment on above: Performed By: #### [facility], 1988-02 #### [facility] ([id number]) [address] [place] [address] Platelet mean volume (Bld) [Entitic vol] 7.7 fL Normal 7-12 [facility] Comment on above: Performed By: #### [facility], 1988-02 #### [facility] ([id number]) [address] [place] [address] 32268 Platelets (Bld) [#/Vol] 322 10*3/uL Normal 150-450 [facility] Comment on above: Performed By: #### [facility], 1988-02 #### [facility] ([id number]) [address] [place] [address] RBC COUNT 5.10 X10E12/L Normal 4.10-5.70 [facility] Comment on above: Performed By: #### [facility], 1988-02 #### [facility] ([id number]) [address] [place] [address]39 WBC (Bld) [#/Vol] 8.7 10*3/uL Normal 4.0-11.0 [facility] Comment on above: Performed By: #### C EMILY [facility], 1988-02 #### [facility] ([id number]) [address] [place] [address] COMPREHENSIVE METABOLIC PANE [facility] 10-12-2024 Albumin [Mass/Vol] 4.7 g/dL Normal 3.2-5.3 [facility] Comment on above: Performed By: #### [facility], 1988-[facility] #### [facility] ([id number]) [address] [place] [id number] ALP [Catalytic activity/Vol] 73 U/L Normal 39-130 [facility] Comment on above: Performed By: #### [facility], 1988-02 #### [facility] ([id number]) [address] [place] [address] [id number] ALT [Catalytic activity/Vol] 32 U/L Normal 0-40 [facility] Comment on above: Performed By: #### [facility], 1988-02 #### [facility] ([id number]) [address] [place] [id number] Anion gap [Moles/Vol] 12 mmol/L Normal 5-15 [facility] Comment on above: Performed By: #### [facility], 1988-02 #### [facility] [facility] ([id number]) [address] [place] [address] 15296 AST [Catalytic activity/Vol] 58 U/L High 0-41 [facility] Comment on above: Performed By: #### [facility], 1988-02 #### [facility] ([id number]) [address] [place] [address] 57902 Bilirubin [Mass/Vol] 1.1 mg/dL Normal 0.3-1.2 [facility] Comment on above: Performed By: #### [facility], 1988-02 #### [facility] ([id number]) [address] [place] [address] 25169 Calcium [Mass/Vol] 9.9 mg/dL Normal 8.5-10.5 [facility] Comment on above: Performed By: #### C EMILY [facility], 1988-02 #### [facility] ([id number]) [address] [place] [address] 98737 Chloride [Moles/Vol] 103 mmol/L Normal 98-109 [facility] Comment on above: Performed By: #### [facility], 1988-02 #### [facility] ([id number]) [address] [place] [address] 92679 CO2 [Moles/Vol] 25 mmol/L Normal 22-32 [facility] Comment on above: Performed By: #### [facility], 1988-02 #### [facility] ([id number]) [address] [place] [address] 46725 Creatinine [Mass/Vol] 0.97 mg/dL Normal 0.70-1.20 [facility] Comment on above: Result Comment: METH OD TRACEABLE TO IDMS STANDARD Performed By: #### [facility], 1988-02 #### [facility] ([id number]) [address] [place] [address] 98581 eGFR (CKD-EPI) NON-RACE DEPENDENT >90 Normal >59 [facility] Comment on above: Result Comment: Reported eGFR is based on the CKD-EPI 2020 equation that does not use a race coefficient. Performed By: #### [facility], 1988-02 #### [facility] ([id number]) [address] [place] [address] 99313 Glucose [Mass/Vol] 107 mg/dL High 65-99 [facility] Comment on above: Performed By: #### [facility], 1988-02 #### [facility] ([id number]) [address] [place] [address] 20932 Potassium [Moles/Vol] 3.8 mmol/L Normal 3.5-5.0 [facility] Comment on above: Performed By: #### [facility], 1988-02 #### [facility] ([id number]) [address] [place] [address] 36433 Protein [Mass/Vol] 8.1 g/dL High 6.0-8.0 [facility] Comment on above: Performed By: #### [facility], 1988-02 #### [facility] ([id number]) [address] [place] [address] 82189 Sodium [Moles/Vol] 140 mmol/L Normal 134-146 [facility] Comment on above: Performed By: #### [facility], 1988-02 #### [facility] ([id number]) [address] [place] [address] 50885 Urea nitrogen [Mass/Vol] 9 mg/dL Normal 5-23 [facility] Comment on above: Performed By: #### [facility], 1988-02 #### [facility] ([id number]) [address] [place] [address] 03464 DRUG SCREEN, URINEon 024 AMPHETAMINE/METHAMP Negative Normal NEG [facility] Comment on above: Result Comment: AMPH /METH screening cut off = 1000 ng/mL Performed By: #### [facility], 1988-02 #### [facility] ([id number]) [address] [place] [address] 22156 BARBITURATES Negative Normal NEG [facility] Comment on above: Result Comment: Nancy iturates screening cut off value = 200 ng/mL Performed By: #### [facility], 1988-02 #### [facility] ([id number]) [address] [place] [address] 67165 BENZODIAZEPINES Negative Normal NEG [facility] Comment on above: Result Comment: Jv odiazepines screening cut off value = 200 ng/mL Performed By: #### [facility], 1988-02 #### [facility] ([id number]) [address] [place] [address] 53197 CANNABINOIDS Positive Abnormal NEG [facility] Comment on above: Result Comment: Conf irmation available upon request. Cannabinoids/THC screening cut off value = 50 ng/mL Performed By: #### [facility], 1988-02 #### [facility] ([id number]) [address] [place] [address] 30126 COCAINE METABOLITE Negative Normal NEG [facility] Comment on above: Result Comment: Coca ine screening cut off value = 300 ng/mL Performed By: #### [facility], 1988-02 #### [facility] ([id number]) [address] [place] [address] 76827 ECSTASY Negative Normal NEG [facility] Comment on above: Result Comment: Ecst asy screening cut off value = 500 ng/mL This report is intended for use in clinical monitoring or management of patients. Performed By: #### [facility], 1988-02 #### [facility] ([id number]) [address] [place] [address] 10198 METHADONE Negative Normal NEG [facility] Comment on above: Result Comment: Meth adone screening cut off value = 300 ng/mL. Performed By: #### [facility], 1988-02 #### [facility] ([id number]) [address] [place] [address] 93417 OPIATES Negative Normal NEG [facility] Comment on above: Result Comment: Opia jocelyne screening cut off value = 300 ng/mL NOTE: This test is used for the detection of codeine, hydrocodone (>1000 ng/mL), morphine and hydromorphone (>900 ng/mL) in urine. Performed By: #### [facility], 1988-02 #### [facility] ([id number]) [address] [place] [address] 48981 OXYCODONE Negative Normal NEG [facility] Comment on above: Result Comment: Oxyc odone screening cut off value = 300 ng/mL NOTE: This test is used for the detection of oxycodone and oxymorphone in urine. Performed By: #### C SELMA DIAZ, 1988-02 #### [facility] ([id number]) [address] [place] [address] 73790 PHENCYCLIDINE Negative Normal NEG [facility] Comment on above: Result Comment: Phen cyclidine screening cut off value = 25 ng/mL Performed By: #### [facility], 1988-02 #### [facility] ([id number]) [address] [place] [address] 98647 ETHANOLon 10-12-2024 Ethanol [Mass/Vol] mg/dL Normal 0.00-0.08 [facility] Comment on above: Result Comment: This report is intended for use in clinical monitoring or management of patients. Performed By: #### C SELMA DIAZ, 1988-02 #### [facility] ([id number]) [address] [place] [address] 35641 MAGNESIUMon 10-12-2024 Magnesium [Mass/Vol] 2.1 mg/dL Normal 1.8-2.6 [facility] Comment on above: Performed By: #### Naomi DIAZ [facility]MP, 1988-02 #### [facility] ([id number]) [address] [place] [address] 16611 Salicylates [Mass/Vol]on SALICYLATE <4.0 Normal 2.0-25.0 [facility] Comment on above: Result Comment: Refe rence ranges are for therapeutic limits. Performed By: #### C SELMA DIAZ, 1988-02 #### [facility] ([id number]) [address] [place] [address] 28056 URN MACROSCOPIC NURon 2023 BILIRUBIN ANITRA Negative Normal NEG [facility] Comment on above: Performed By: #### C SELMA DIAZ, 1986-02 #### [facility] ([id number]) [address] [place] [address] [place] [address] BLOOD/HGB ANITRA Negative Normal NEG [facility] Comment on above: Performed By: #### [facility], 1988-02 #### [facility] ([id number]) [address] [place] [address] [place] [address] GLUCOSE ANITRA Negative Normal NEG [facility] Comment on above: Performed By: #### [facility], 1988-02 #### [facility] ([id number]) [address] [place] [address] [place] [address] KETONES ANITRA Negative Normal NEG [facility] Comment on above: Performed By: #### [facility], 1988-02 #### [facility] ([id number]) [address] [place] [address] [place] [address] LEUKOCYTE ESTERASE ANITRA Negative Normal NEG [facility] Comment on above: Performed By: #### [facility], 1988-02 #### [facility] ([id number]) [address] [place] [address] [place] [address] NITRITE ANITRA Negative Normal NEG [facility] Comment on above: Performed By: #### Naomi DIAZ CMP, 1988-02 #### [facility] ([id number]) [address] [place] [address] [place] [address] PH ANITRA 6.0 Normal 5.0-8.5 [facility] Comment on above: Performed By: #### Naomi DIAZ CMP, 1988-02 #### [facility] ([id number]) [address] [place] [address] [place] [address] PROTEIN ANITRA Negative Normal NEG [facility] Comment on above: Performed By: #### Naomi DIAZ CMP, 1988-02 #### [facility] ([id number]) [address] [place] [address] 31589 SPECIFIC GRAVITY ANITRA <=1.005 Normal 1.003-1.035 [facility] Comment on above: Performed By: #### [facility], 1988-02 #### [facility] ([id number]) [address] [place] [address] 17648 UROBILINOGEN ANITRA 0.2 eu/dL Normal <1.1 [facility] Comment on above: Performed By: #### [facility], 1988-02 #### [facility] ([id number]) [address] [place] [address] 28748 CBC AND AUTO DIFFon 09-25-20 24 ABSOLUTE BASOPHIL 0.0 X10E9/L Normal 0.0-0.2 [facility] Comment on above: Performed By: #### [facility], 1988-02 #### [facility] ([id number]) [address] [place] [address] 62187 ABSOLUTE NEUTROPHIL 6.1 X10E9/L Normal 1.5-6.6 [facility] Comment on above: Performed By: #### [facility], 1988-02 #### [facility] ([id number]) [address] [place] [address] 58859 Basophils/100 WBC (Bld) 0.4 % Normal [facility] Comment on above: Performed By: #### [facility], 1988-02 #### [facility] ([id number]) [address] [place] [address] 61705 Eosinophils (Bld) [#/Vol] 0.1 10*3/uL Normal 0.0-0.4 [facility] Comment on above: Performed By: #### [facility], 1988-02 #### [facility] ([id number]) [address] [place] [address] Eosinophils/100 WBC (Bld) 1.8 % Normal [facility] Comment on above: Performed By: #### [facility], 1988-02 #### [facility] ([id number]) [address] [place] [address] 41321 Erythrocyte distribution width (RBC) [Ratio] 13.3 % Normal 11.5-15.0 [facility] Comment on above: Performed By: #### [facility], 1988-02 #### [facility] ([id number]) [address] [place] [address] 97623 Hematocrit (Bld) [Volume fraction] 47.5 % Normal 39-49 [facility] Comment on above: Performed By: #### [facility], 1988-02 #### [facility] ([id number]) [address] [place] [address] 08663 Hemoglobin (Bld) [Mass/Vol] 16.3 g/dL Normal 13.0-17.0 [facility] Comment on above: Performed By: #### [facility], 1988-02 #### [facility] ([id number]) [address] [place] [address] 54094 Lymphocytes (Bld) [#/Vol] 0.9 10*3/uL Low 1.0-3.5 [facility] Comment on above: Performed By: #### [facility], 1988-02 #### [facility] ([id number]) [address] [place] [address] 71361 Lymphocytes/100 WBC (Bld) 11.4 % Normal [facility] Comment on above: Performed By: #### [facility], 1988-02 #### [facility] ([id number]) [address] [place] [address] 00564 MCH (RBC) [Entitic mass] 28.2 pg Normal 27-34 [facility] Comment on above: Performed By: #### [facility], 1988-02 #### [facility] ([id number]) [address] [place] [address] 57208 MCHC (RBC) [Mass/Vol] 34.4 g/dL Normal 32-36 [facility] Comment on above: Performed By: #### [facility], 1988-02 #### [facility] ([id number]) [address] [place] [address] 32790 MCV (RBC) [Entitic vol] 82 fL Normal 80-100 [facility] Comment on above: Performed By: #### [facility], 1988-02 #### [facility] ([id number]) [address] [place] [address] 67275 Monocytes (Bld) [#/Vol] 0.7 10*3/uL Normal 0-0.9 [facility] Comment on above: Performed By: #### [facility], 1988-02 #### [facility] ([id number]) [address] [place] [address] 96114 Monocytes/100 WBC (Bld) 8.6 % Normal [facility] Comment on above: Performed By: #### [facility], 1988-02 #### [facility] ([id number]) [address] [place] [address] 05588 Neutrophils/100 WBC (Bld) 77.8 % Normal [facility] Comment on above: Performed By: #### [facility], 1988-02 #### [facility] ([id number]) [address] [place] [address] 24744 Platelet mean volume (Bld) [Entitic vol] 7.9 fL Normal 7-12 [facility] Comment on above: Performed By: #### [facility], 1988-02 #### [facility] ([id number]) [address] [place] [address] 91056 Platelets (Bld) [#/Vol] 285 10*3/uL Normal 150-450 [facility] Comment on above: Performed By: #### [facility], 1988-02 #### [facility] ([id number]) [address] [place] [address] 68123 RBC COUNT 5.79 X10E12/L High 4.10-5.70 [facility] Comment on above: Performed By: #### [facility], 1988-02 #### [facility] ([id number]) [address] [place] [address] 17266 WBC (Bld) [#/Vol] 7.8 10*3/uL Normal 4.0-11.0 [facility] Comment on above: Performed By: #### [facility], 1988-02 #### [facility] ([id number]) [address] [place] [address] 85753 COMPREHENSIVE METABOLIC PANE [facility] 09-25-2024 Albumin [Mass/Vol] 5.1 g/dL Normal 3.2-5.3 [facility] Comment on above: Performed By: #### [facility], 1988-02 #### [facility] ([id number]) [address] [place] [address] 90646 ALP [Catalytic activity/Vol] 85 U/L Normal 39-130 [facility] Comment on above: Performed By: #### [facility], 1988-02 #### [facility] ([id number]) [address] [place] [address] 79774 ALT [Catalytic activity/Vol] 19 U/L Normal 0-40 [facility] Comment on above: Performed By: #### [facility], 1988-02 #### [facility] ([id number]) [address] [place] [address] 30975 Anion gap [Moles/Vol] 15 mmol/L Normal 5-15 [facility] Comment on above: Performed By: #### [facility], 1988-02 #### [facility] ([id number]) [address] [place] [address] 43106 AST [Catalytic activity/Vol] 21 U/L Normal 0-41 [facility] Comment on above: Performed By: #### [facility], 1988-02 #### [facility] ([id number]) [address] [place] [address] 48005 Bilirubin [Mass/Vol] 0.6 mg/dL Normal 0.3-1.2 [facility] Comment on above: Performed By: #### [facility], 1988-02 #### [facility] ([id number]) [address] [place] [address] 73959 Calcium [Mass/Vol] 9.8 mg/dL Normal 8.5-10.5 [facility] Comment on above: Performed By: #### [facility], 1988-02 #### [facility] ([id number]) [address] [place] [address] 17085 Chloride [Moles/Vol] 98 mmol/L Normal 98-109 [facility] Comment on above: Performed By: #### [facility], 1988-02 #### [facility] ([id number]) [address] [place] [address] 91568 CO2 [Moles/Vol] 22 mmol/L Normal 22-32 [facility] Comment on above: Performed By: #### [facility], 1988-02 #### [facility] ([id number]) [address] [place] [address] 36002 Creatinine [Mass/Vol] 0.98 mg/dL Normal 0.70-1.20 [facility] Comment on above: Result Comment: METH OD TRACEABLE TO IDMS STANDARD Performed By: #### C SELMA DIAZ, 1988-02 #### [facility] ([id number]) [address] [place] [address] 33350 eGFR (CKD-EPI) NON-RACE DEPENDENT >90 Normal >59 [facility] Comment on above: Result Comment: Reported eGFR is based on the CKD-EPI 2020 equation that does not use a race coefficient. Performed By: #### [facility], 1988-02 #### [facility] ([id number]) [address] [place] [address] 67072 Glucose [Mass/Vol] 104 mg/dL High 65-99 [facility] Comment on above: Performed By: #### [facility], 1988-02 #### [facility] ([id number]) [address] [place] [address] 61233 Potassium [Moles/Vol] 3.3 mmol/L Low 3.5-5.0 [facility] Comment on above: Performed By: #### [facility], 1988-02 #### [facility] ([id number]) [address] [place] [address] 82381 Protein [Mass/Vol] 8.3 g/dL High 6.0-8.0 [facility] Comment on above: Performed By: #### [facility], 1988-02 #### [facility] ([id number]) [address] [place] [address] 72349 Sodium [Moles/Vol] 135 mmol/L Normal 134-146 [facility] Comment on above: Performed By: #### [facility], 1988-02 #### [facility] ([id number]) [address] [place] [address] 78267 Urea nitrogen [Mass/Vol] 7 mg/dL Normal 5-23 [facility] Comment on above: Performed By: #### [facility], 1988-02 #### [facility] ([id number]) [address] [place] [address] CT ABDOMEN AND PELVIS W CONT on 09-25-2024 CT ABDOMEN AND PELVIS W CONT CT ABDOMEN AND PELVIS W CONT CT ABDOMEN AND PELVIS WITH CONTRAST CLINICAL INFORMATION: Acute nonlocalized abdominal pain, diarrhea TECHNIQUE: Multidetector spiral CT scan of the abdomen and pelvis was performed following the uneventful administration of nonionic intravenous contrast. Coronal and sagittal reformatted images were obtained and reviewed. Automated exposure control was utilized. Following the intravenous injection of 100 cc of Omnipaque 300, a CT of the abdomen and pelvis and sagittal and coronal reformats obtained. All CT scans at this facility use dose modulation, iterative reconstruction, and/or weight based dosing when appropriate to reduce radiation dose to as low as reasonably achievable. COMPARISON: CT dated 09/23/2024 FINDINGS: Small groundglass infiltrates in the lower lungs, correlate for infection process such as Covid. No focal lesions seen in the liver, spleen, adrenal glands, pancreas, gallbladder, or kidneys. No dilated bowel loops. There is mild mucosal wall thickening in the colon without colonic distention or dilated small bowel loops. No free fluid. IMPRESSION: 1. Multiple small groundglass infiltrates in the lower lungs, correlate for an infectious process such as Covid. 2. Subtle mucosal wall thickening in the colon without obstruction or dilated bowel loops. Finalized by Cindy Bradley MD on 09/25/2024 6:09 PM Normal [facility] LIPASEon 09-25-2024 Lipase [Catalytic activity/Vol] 21 U/L Normal 17-40 [facility] Comment on above: Performed By: #### C EMILY, CMP, 1987- #### [facility] ([id number]) [address] [place] [address] ABDOMEN AND PELVIS W CONT on 09-23-2024 CT ABDOMEN AND PELVIS W CONT CT ABDOMEN AND PELVIS W CONT HISTORY and Tech Notes: Right lower quadrant abdominal pain Patient complains of RLQ pain and diarrhea x 4 days. Patient denies nausea, vomiting, constipation, and fever. ? No prior abdominal or pelvic issues or surgeries Never smoker ? Patient was given 100 mls of omni 300 ? PROCEDURE: CT abdomen pelvis Study is done with IV contrast Automated exposure control was utilized COMPARISON: November 28 FINDINGS: The study is significantly degraded by motion UPPER ABDOMEN No splenomegaly. Haziness around the pancreas and other structures is thought largely to be motion artifact No suspicious kidney mass was seen. No peripancreatic fluid collections. No suspicious liver mass. The portal veins and hepatic veins enhance and look patent SMV looks patent Splenic vein looks patent There is not significant vascular calcification GB unremarkable. No suspicious adrenal mass seen No perihepatic fluid No ductal dilatation No large hiatal hernia PELVIS No hydronephrosis . Bladder is not dilated No fecal impaction No perirectal abscess No sign of a bowel obstruction. There is slight prominence of lymph nodes in the right mid abdominal mesentery and also slight prominence of the ascending colonic wall and hepatic flexure and proximal transverse colonic wall. The colon is not well distended which could account for some of that appearance No suspicious gas No suspicious fluid in the paracolic gutters No sign of an abdominal aortic aneurysm. No retroperitoneal bleed or suspicious adenopathy. The appendix looks slightly distended Haziness near the appendix may be exaggerated by the motion. LUNG BASE EVALUATION no basilar consolidation or significant effusion. Bandlike opacities in the left lower lobe likely atelectasis and scar. BONE RECONSTRUCTIONS no compression deformity. Disc protrusion causing moderate stenosis L4-5 and slightly less L5-S1. IMPRESSION: The study is degraded by significant motion artifact which may account for some of the haziness around the pancreas and other organs as well as the cecal tip and appendix. It looks like there is some bowel wall thickening along the right hemicolon and probably involving the appendix as well with prominent lymph nodes in the right lower quadrant and mid abdominal mesentery. The pattern may be seen with infectious or inflammatory colitis an appendiceal involvement and reactive mesenteric lymphadenitis Other more aggressive process or early manifestation of acute appendicitis seems less likely but if symptoms persist or worsen or presentation suggests strong evidence for appendicitis clinically, surgical consultation may be useful. All CT scans at this facility use dose modulation, iterative reconstruction, and/or weight based dosing when appropriate to reduce radiation dose to as low as reasonably achievable. Finalized by Vinny Rodriguez MD on 09/23/2024 3:29 PM Normal [facility] Calprotectin (Stl) [Mass/Mas s]on 09-22-2024 Calprotectin, F 395 mcg/g High <50.0 (Normal) [facility] Comment on above: Result Comment: NOTE Interpretation: Abnormal (>120 mcg/g) Test Performed by: [facility] [address] [place] [address] Malware Analyst: Odalis Boudreaux Ph.D.; CLIA# [id number] Performed By: #### [facility], 1988-02 #### [facility] ([id number]) [address] [place] [id number] FECAL OCCULT BLOODon 024 Hemoglobin.gastrointesti nal Ql (Stl) Negative Normal NEG [facility] Comment on above: Performed By: #### [facility], 1988-02 #### [facility] ([id number]) [address] [place] [id number] GI PANELon 09-22-2024 Gastrointestinal pathogens DNA and RNA panel DUC+non-probe [...] SAPOVIRUS Not detected (qualifier value) Normal NDET [facility] Comment on above: Performed By: #### C [facility], [facility]- #### [facility] ([id number]) [address] [place] [address], [place] [address] URINALYSISon 09-22-2024 Bilirubin Ql (U) Negative Normal NEG [facility] Comment on above: Performed By: #### U A #### [facility] ([id number]) [address] [place] [address], [address] [place] [address] BLOOD/HGB Negative Normal NEG [facility] Comment on above: Performed By: #### U A #### [facility] ([id number]) [address] [place] [address], [address] [place] [address] Color (U) ORANGE Abnormal YELLOW [facility] Comment on above: Performed By: #### U A #### [facility] ([id number]) [address] [place] [address], [address] [place] [address] Glucose Ql (U) Negative Normal NEG [facility] Comment on above: Performed By: #### U A #### [facility] ([id number]) [address] [place] [address], [address] [place] [address] Ketones Ql (U) 60 mg/dL Abnormal NEG [facility] Comment on above: Performed By: #### U A #### [facility] ([id number]) [address] [place] [address], [address] [place] [address] Leukocyte esterase Test strip Ql (U) Negative Normal NEG [facility] Comment on above: Performed By: #### U A #### [facility] ([id number]) [address] [place] [address], [address] [place] [address] MUCOUS PRESENT Abnormal NONE [facility] Comment on above: Performed By: #### U A #### [facility] ([id number]) [address] [place] [address], [address] [place] [address] Nitrite Ql (U) Negative Normal NEG [facility] Comment on above: Performed By: #### U A #### [facility] ([id number]) [address], [address] [place] [address] pH (U) 6.5 [pH] Normal 5.0-8.5 [facility] Comment on above: Performed By: #### U A #### [facility] ([id number]) [address], [address] [place] [address] Protein Ql (U) 30 mg/dL Abnormal NEG [facility] Comment on above: Performed By: #### U A #### [facility] ([id number]) [address], [address] [place] [address] R.B.CELLS 2 /hpf Normal 0-5 [facility] Comment on above: Performed By: #### U A #### [facility] ([id number]) [address], [address] [place] [address] Specific gravity (U) [Rel density] 1.037 High 1.003-1.035 [facility] Comment on above: Performed By: #### U A #### [facility] ([id number]) [address], [address] [place] [address] SQUAMOUS EPITHELIUM 1 /hpf Normal 0-5 [facility] Comment on above: Performed By: #### U A #### [facility] ([id number]) [address], [address] [place] [address] TURBIDITY CLEAR Normal CLEAR [facility] Comment on above: Performed By: #### U A #### [facility] ([id number]) [address], [address] [place] [address] Urobilinogen Qn (U) 3 {Aixa'U}/dL High <1.1 [facility] Comment on above: Performed By: #### U A #### [facility] ([id number]) [address], [address] [place] [address] W.B.CELLS 3 /hpf Normal 0-5 [facility] Comment on above: Performed By: #### U A #### [facility] ([id number]) [address], [address] [place] [address] C-Reactive Proteinon 024 CRP [Mass/Vol] mg/L Normal 0.0-0.5 [facility] Comment on above: Performed By: #### H IV SCREEN, CELIAC #### [facility] , #### TSH3, CRP #### [place] [address] [place] Celiacon 02-02-2024 Deamidated Gliadin Abs, IgA 4 Normal 0-19 [facility] Comment on above: Result Comment: Nega tive 0 - 19 Weak Positive 20 - 30 Moderate to Strong Positive >30 Performed By: #### H IV SCREEN, CELIAC #### [facility] , #### TSH3, CRP #### [facility] [address] [place] [address] [place] Deamidated Gliadin Abs, IgG 3 Normal 0-19 [facility] Comment on above: Result Comment: Nega tive 0 - 19 Weak Positive 20 - 30 Moderate to Strong Positive >30 Performed By: #### H IV SCREEN, CELIAC #### [facility] , #### TSH3, CRP #### [facility] [address] [place] [id number] [place] Endomysial Antibody IgA Negative Normal Negative [facility] Comment on above: Performed By: #### H IV SCREEN, CELIAC #### [facility] , #### TSH3, CRP #### [facility] [address] [place] [id number] [place] Immunoglobulin A, Qn, Serum 110 mg/dL Normal 90-386 [facility] Comment on above: Result Comment: Perf ormed at: - [facility] [id number] Malware Analyst: Sal Pepe PhD, Phone: [phone] Performed By: #### H IV SCREEN, CELIAC #### [facility] , #### TSH3, CRP #### [address] T-Transglutaminase (tTG) IgA <2 Normal 0-3 [facility] Comment on above: Result Comment: Nega tive 0 - 3 Weak Positive 4 - 10 Positive >10 Tissue Transglutaminase (tTG) has been identified as the endomysial antigen. Studies have demonstr- ated that endomysial IgA antibodies have over 99% specificity for gluten sensitive enteropathy. Performed By: #### H IV SCREEN, CELIAC #### [facility] , #### TSH3, CRP #### [address] T-Transglutaminase (tTG) IgG <2 Normal 0-5 [facility] Comment on above: Result Comment: Nega tive 0 - 5 Weak Positive 6 - 9 Positive >9 Performed By: #### H IV SCREEN, CELIAC #### [facility] , #### TSH3, CRP #### [address] HIV 1/O/2 Antigen/Antibodyon 02-02-2024 HIV Screen 4th Generation Non-Reactive Normal Non Reactive [facility] Comment on above: Result Comment: HIV Negative HIV-1/HIV-2 antibodies and HIV-1 p24 antigen were NOT detected. There is no laboratory evidence of HIV infection. Performed at: - [facility] [id number] Malware Analyst: Sal Pepe PhD, Phone: [phone] PERFORMED BY: [place] [address] PATHOLOGIST [employer]ATIONS ASSOCIATE LEIGHTON JOHN M.D. Performed By: #### H IV SCREEN, CELIAC #### [facility] , #### TSH3, CRP #### [facility] [address] Thyroid Stimulating Hormoneo n 02-02-2024 TSH Qn 1.71 m[IU]/L Normal 0.45-5.[address] [facility] Comment on above: Result Comment: PERF ORMED BY: [place] [address] PATHOLOGIST GUE[employer] RELATIONS ASSOCIATE LEIGHTON JOHN M.D. Performed By: #### H IV SCREEN, CELIAC #### [facility] , #### TSH3, CRP #### [facility] [address] Alanine aminotransferase [En zymatic activity/volume] in Serum or PlasmaOrdered By: Shabnam Silverio on 12-15-2023 ALT [Catalytic activity/Vol] 8 U/L 7-52 [facility] Albumin [Mass/volume] in Ser um or Plasma by Bromocresol green (BCG) dye binding methoOrdered By: Shabnam Silverio on 12-15-2023 Albumin BCG dye [Mass/Vol] 4.6 g/dL 3.5-5.7 [facility] Alkaline phosphatase [Enzyma tic activity/volume] in Serum or PlasmaOrdered By: Shabnam Silverio on 12-15-2023 ALP [Catalytic activity/Vol] 41 U/L 34-104 [facility] Amphetamine Screen Ql (U)Ord ered By: Shabnam Silverio on 12-15-2023 Amphetamines Ql (U) Negative Negative [facility] Aspartate aminotransferase [ Enzymatic activity/volume] in Serum or PlasmaOrdered By: Shabnam Silverio on 12-15-2023 AST [Catalytic activity/Vol] 11 U/L 13-39 [facility] Barbiturates [Presence] in U rine by Screen methodOrdered By: Shabnam Silverio on 12-15-2023 Barbiturates Screen Ql (U) Negative Negative [facility] Basophils Auto (Bld) [#/Vol] Ordered By: Shabnam Silverio on 12-15-2023 Basophils (Bld) [#/Vol] 0.0 10*3/uL 0.0-0.2 [facility] Basophils/100 WBC Auto (Bld) Ordered By: Shabnam Silverio on 12-15-2023 Basophils/100 WBC (Bld) 0.1 % . [facility] Benzodiazepines Screen Ql (U )Ordered By: Shabnam Silverio on 12-15-2023 Benzodiazepines Ql (U) Negative Negative Fi [facility] Benzoylecgonine [Presence] i n Urine by Screen methodOrdered By: Shabnam Silevrio on 12-15-2023 Benzoylecgonine Screen Ql (U) Negative Negative [facility] Bilirubin Test strip Ql (U)O rdered By: Shabnam Silverio on 12-15-2023 Bilirubin Ql (U) Negative Negative [facility] Bilirubin.total [Mass/volume ] in Serum or PlasmaOrdered By: Shabnam Silverio on 12-15-2023 Bilirubin [Mass/Vol] 0.6 mg/dL 0.3-1.0 [facility] CT abdomen pelvis w conon CT abdomen pelvis w con [facility] [address] CT Scan Report Signed Patient: Gulshan Mcpherson MR#: [id number] [birth year] : 2000 Acct:[id number] Age/Sex: 23 / M ADM Date: 12/15/23 Loc: ER Room: Type: [facility] ER Attending Dr: Copies to: Shabnam Silverio [...] cystitis. No obstructive uropathy. Impression dictated by: Otto Norman M.D.12/15/2023 7:32 PM Dictation Location: [place] [address] Transcribed By: [facility] 12/15/231931 Dictated By: Otto Norman DO 12/15/231928 Signed By: 12/15/231931 Normal [facility] Calcium [Mass/volume] in Ser um or PlasmaOrdered By: Shabnam Silverio on 12-15-2023 Calcium [Mass/Vol] 9.4 mg/dL 8.6-10.3 [facility] Cannabinoids [Presence] in U rine by Screen methodOrdered By: Shabnam Silverio on 12-15-2023 Cannabinoids Screen Ql (U) Positive Negative [facility] Comment on above: These are unconfirme d results and should not be used for legal purposes. Drug Cut-Off Concentration: AMPH 1000 ng/mL NANCY 200 ng/mL JV 200 ng/mL COCM 300 ng/mL OP 300 ng/mL PCP 25 ng/mL THC 20 ng/mL Carbon dioxide, total [Moles /volume] in Serum or PlasmaOrdered By: Shabnam Silverio on 12-15-2023 CO2 [Moles/Vol] 22.6 mmol/L 21.0-31.0 [facility] Chloride [Moles/volume] in S sushma or PlasmaOrdered By: Shabnam Silverio on 12-15-2023 Chloride [Moles/Vol] 106 mmol/L 98-107 [facility] Color Auto (U)Ordered By: Michael Silverio on 12-15-2023 Color (U) Yellow Yellow [facility] Complete Blood Count Auto Di ffon 12-15-2023 Basophils (Bld) [#/Vol] 0.0 10*3/uL Normal 0.0-0.2 [facility] Comment on above: Result Comment: PERF ORMED BY: [place] [address] PATHOLOGIST [employer]ATIONS ASSOCIATE LEIGHTON JOHN M.D. Performed By: #### L IPASE, CMP, CBC #### [address] Basophils/100 WBC (Bld) 0.1 % Normal . [facility] Comment on above: Performed By: #### L IPASE, CMP, CBC #### [place] [address] [place] Eosinophils (Bld) [#/Vol] 0.0 10*3/uL Normal 0.0-0.45 [facility] Comment on above: Performed By: #### L IPASE, CMP, CBC #### [address] Eosinophils/100 WBC (Bld) 0.0 % Normal . [facility] Comment on above: Performed By: #### L IPASE, CMP, CBC #### [address] Erythrocyte distribution width (RBC) [Ratio] 13.6 % Normal 12.0-14.[address] [facility] Comment on above: Performed By: #### L IPASE, CMP, CBC #### [place] [address] [place] Hematocrit (Bld) [Volume fraction] 41.0 % Normal 38.8-50.0 [facility] Comment on above: Performed By: #### L IPASE, CMP, CBC #### [facility] [address] [place] [address] Hemoglobin (Bld) [Mass/Vol] 13.8 g/dL Normal 13.0-17.0 [facility] Comment on above: Performed By: #### L IPASE, CMP, CBC #### [address] Lymphocytes (Bld) [#/Vol] 0.4 10*3/uL Low 1.00-4.8 [facility] Comment on above: Performed By: #### L IPASE, CMP, CBC #### [address] Lymphocytes/100 WBC (Bld) 9.0 % Normal . [facility] Comment on above: Performed By: #### L IPASE, CMP, CBC #### [address] MCH (RBC) [Entitic mass] 28.5 pg Normal 27.5-35.2 [facility] Comment on above: Performed By: #### L IPASE, CMP, CBC #### [address] MCV (RBC) [Entitic vol] 84.6 fL Normal 83.5-101 [facility] Comment on above: Performed By: #### L IPASE, CMP, CBC #### [address] Mean Corpuscular HGB Conc 33.7 g/dL Normal 32.5-35.6 [facility] Comment on above: Performed By: #### L IPASE, CMP, CBC #### [address] Monocytes (Bld) [#/Vol] 0.1 10*3/uL Normal 0.0-0.8 [facility] Comment on above: Performed By: #### L IPASE, CMP, CBC #### [place] [address] [place] Monocytes/100 WBC (Bld) 19.10 % Normal 0.00-20.00 [facility] Comment on above: Performed By: #### L IPASE, CMP, CBC #### [address] Monocytes/100 WBC (Bld) 2.3 % Normal . [facility] Comment on above: Performed By: #### L IPASE, CMP, CBC #### [address] Neutrophils (Bld) [#/Vol] 4.2 10*3/uL Normal 1.8-7.7 [facility] Comment on above: Performed By: #### L IPASE, CMP, CBC #### [place] [address] [place] Neutrophils/100 WBC (Bld) 88.6 % Normal . [facility] Comment on above: Performed By: #### L IPASE, CMP, CBC #### [address] NRBC% 0.0 /100{WBC} Normal 0-0.[address] [facility] Comment on above: Performed By: #### L IPASE, CMP, CBC #### [address] Platelet mean volume (Bld) [Entitic vol] 8.4 fL Normal 6.6-10.[address] [facility] Comment on above: Performed By: #### L IPASE, CMP, CBC #### [place] [address] [place] Platelets (Bld) [#/Vol] 253 10*3/uL Normal 150-450 [facility] Comment on above: Performed By: #### L IPASE, CMP, CBC #### [address] RBC (Bld) [#/Vol] 4.85 10*6/uL Normal 3.90-5.60 [facility] Comment on above: Performed By: #### L IPASE, CMP, CBC #### [place] [address] [place] WBC (Bld) [#/Vol] 4.8 10*3/uL Normal 4.1-10.5 [facility] Comment on above: Performed By: #### L IPASE, CMP, CBC #### [address] [place] [address] [place] Comprehensive Metabolic Pane alex 12-15-2023 Albumin [Mass/Vol] 4.6 g/dL Normal 3.5-5.7 [facility] Comment on above: Performed By: #### L IPASE, CMP, CBC #### [address] Albumin/Globulin [Mass ratio] 1.8 {ratio} Normal [facility] Comment on above: Performed By: #### L IPASE, CMP, CBC #### [address] ALP [Catalytic activity/Vol] 41 U/L Normal 34-104 [facility] Comment on above: Performed By: #### L IPASE, CMP, CBC #### [address] ALT [Catalytic activity/Vol] 8 U/L Normal 7-52 [facility] Comment on above: Performed By: #### L IPASE, CMP, CBC #### [address] Anion gap [Moles/Vol] 16.5 mmol/L High 6.0-15.[address] [facility] Comment on above: Performed By: #### L IPASE, CMP, CBC #### [address] AST [Catalytic activity/Vol] 11 U/L Low 13-39 [facility] Comment on above: Performed By: #### L IPASE, CMP, CBC #### [place] [address] [place] Bilirubin [Mass/Vol] 0.6 mg/dL Normal 0.3-1.0 [facility] Comment on above: Performed By: #### L IPASE, CMP, CBC #### [address] Calcium [Mass/Vol] 9.4 mg/dL Normal 8.6-10.3 [facility] Comment on above: Performed By: #### L IPASE, CMP, CBC #### [facility] [address] [place] [address] [place] Chloride [Moles/Vol] 106 mmol/L Normal 98-107 [facility] Comment on above: Performed By: #### L IPASE, CMP, CBC #### [facility] [address] CO2 [Moles/Vol] 22.6 mmol/L Normal 21.0-31.0 [facility] Comment on above: Performed By: #### L IPASE, CMP, CBC #### [facility] [address] Creatinine [Mass/Vol] 0.73 mg/dL Normal 0.70-1.30 [facility] Comment on above: Performed By: #### L IPASE, CMP, CBC #### [address] Creatinine Clr Calc Pharmacy 139.01 Normal [facility] Comment on above: Performed By: #### L IPASE, CMP, CBC #### [place] [address] [place] GFR/1.73 sq M.predicted MDRD (S/P/Bld) [Vol rate/Area] mL/min/{1.73_m2} Normal [facility] Comment on above: Performed By: #### L IPASE, CMP, CBC #### [address] Globulin (S) [Mass/Vol] 2.5 g/dL Normal T he [facility] Comment on above: Performed By: #### L IPASE, CMP, CBC #### [place] [address] [place] Glucose [Mass/Vol] 113 mg/dL High 70-100 [facility] Comment on above: Result Comment: [place] Glucose Reference Range is dependent on time and content of last meal. Glucose of more than 200 mg/dL in a nonstressed, ambulatory subject supports the diagnosis of Diabetes Mellitus. ADA recommended reference range Performed By: #### L IPASE, CMP, CBC #### [address] Potassium [Moles/Vol] 4.1 mmol/L Normal 3.5-5.1 [facility] Comment on above: Performed By: #### L IPASE CMP, CBC #### [address] Protein [Mass/Vol] 7.1 g/dL Normal 6.4-8.9 [facility] Comment on above: Performed By: #### L IPASE, CMP, CBC #### [place] [address] [place] Sodium [Moles/Vol] 141 mmol/L Normal 136-145 [facility] Comment on above: Performed By: #### L IPASE CMP, CBC #### [place] [address] [place] Urea nitrogen [Mass/Vol] 15 mg/dL Normal 7-25 [facility] Comment on above: Performed By: #### L IPASE CMP, CBC #### [place] [address] [place] Creatinine [Mass/volume] in Serum or PlasmaOrdered By: Shabnam Silverio on 12-15-2023 Creatinine [Mass/Vol] 0.73 mg/dL 0.70-1.30 [facility] Drug Screen,Urineon 12-15-19 24 Amphetamine Screen,Urine Negative Normal Negative [facility] Comment on above: Performed By: #### U A, URDS #### [place] [address] [place] Barbiturate Screen,Urine Negative Normal Negative [facility] Comment on above: Performed By: #### U A, URDS #### [place] [address] [place] Benzodiazepines Screen,Urine Negative Normal Negative [facility] Comment on above: Performed By: #### U A, URDS #### [place] [address] [place] Cannabinoid Screen,Urine Positive High Negative [facility] Comment on above: Result Comment: Thes e are unconfirmed results and should not be used for legal purposes. Drug Cut-Off Concentration: AMPH 1000 ng/mL NANCY 200 ng/mL VJ 200 ng/mL COCM 300 ng/mL OP 300 ng/mL PCP 25 ng/mL THC 20 ng/mL PERFORMED BY: [place] [address] PATHOLOGIST G[employer] RELATIONS ASSOCIATE LEIGHTON JOHN M.D. Performed By: #### U A, URDS #### [address] Cocaine Screen,Urine Negative Normal Negative [facility] Comment on above: Performed By: #### U A, URDS #### [facility] [address] [place] [address] Opiate Screen,Urine Negative Normal Negative [facility] Comment on above: Performed By: #### U A, URDS #### [address] Phencyclidine Screen,Urine Negative Normal Negative [facility] Comment on above: Performed By: #### U A, URDS #### [facility] [address] [place] [address] Eosinophils Auto (Bld) [#/Vo l]Ordered By: Shabnam Silverio on 12-15-2023 Eosinophils (Bld) [#/Vol] 0.0 10*3/uL 0.0-0.45 [facility] Eosinophils/100 WBC Auto (Bl d)Ordered By: Shabnam Silverio on 12-15-2023 Eosinophils/100 WBC (Bld) 0.0 % . [facility] Erythrocyte distribution wid th Auto (RBC) [Ratio]Ordered By: Shabnam Silverio on 12-15-2023 Erythrocyte distribution width (RBC) [Ratio] 13.6 % 12.0-14.8 [facility] Globulin Calc (S) [Mass/Vol] Ordered By: Shabnam Silverio on 12-15-2023 Globulin (S) [Mass/Vol] 2.5 g/dL [facility] Glucose [Mass/volume] in Ser um or PlasmaOrdered By: Shabnam Silverio on 12-15-2023 Glucose [Mass/Vol] 113 mg/dL 70-100 [facility] Comment on above: ADA recommended refe rence rangeRandom Glucose Reference Range is dependent on time and content of last meal. Glucose of more than 200 mg/dL in a nonstressed, ambulatory subject supports the diagnosis of Diabetes Mellitus. Hematocrit Auto (Bld) [Volum e fraction]Ordered By: Shabnam Silverio on 12-15-2023 Hematocrit (Bld) [Volume fraction] 41.0 % 38.8-50.0 [facility] Hemoglobin [Mass/volume] in BloodOrdered By: Shabnam Silverio on 12-15-2023 Hemoglobin (Bld) [Mass/Vol] 13.8 g/dL 13.0-17.0 [facility] Ketones Auto test strip (U) [Mass/Vol]Ordered By: Shabnam Silverio on 12-15-2023 Ketones (U) [Mass/Vol] Trace Negative [facility] Leukocytes [#/volume] correc pj for nucleated erythrocytes in Blood by Automated counOrdered By: Shabnam Silverio on 12-15-2023 WBC corrected for nucl RBC Auto (Bld) [#/Vol] 4.8 10*3/uL 4.1-10.5 [facility] Lipaseon 12-15-2023 Lipase [Catalytic activity/Vol] 6.0 U/L Low 11.0-82.0 [facility] Comment on above: Result Comment: PERF ORMED BY: [place] [address] PATHOLOGIST GUE[employer]ATIONS ASSOCIATE LEIGHTON JOHN M.D. Performed By: #### L IPASE, CMP, CBC #### [address] Lipase [Enzymatic activity/v olume] in Serum or PlasmaOrdered By: Shabnam Silverio on 12-15-2023 Lipase [Catalytic activity/Vol] 6.0 U/L 11.0-82.0 [facility] Lymphocytes Auto (Bld) [#/Vo l]Ordered By: Shabnam Silverio on 12-15-2023 Lymphocytes (Bld) [#/Vol] 0.4 10*3/uL 1.00-4.8 [facility] Lymphocytes/100 WBC Auto (Bl d)Ordered By: Shabnam Silverio on 12-15-2023 Lymphocytes/100 WBC (Bld) 9.0 % . [facility] MCH Auto (RBC) [Entitic mass ]Ordered By: Shabnam Silverio on 12-15-2023 MCH (RBC) [Entitic mass] 28.5 pg 27.5-35.2 [facility] MCHC Auto (RBC) [Mass/Vol]Or dered By: Shabnam Silverio on 12-15-2023 MCHC (RBC) [Mass/Vol] 33.7 g/dL 32.5-35.6 [facility] MCV Auto (RBC) [Entitic vol] Ordered By: Shabnam Silverio on 12-15-2023 MCV (RBC) [Entitic vol] 84.6 fL 83.5-101 [facility] Monocyte distribution width [Entitic volume] in Blood by AutomatedOrdered By: Shabnam Silverio on 12-15-2023 Monocyte distribution width Auto (Bld) [Entitic vol] 19.10 % 0.00-20.00 [facility] Monocytes Auto (Bld) [#/Vol] Ordered By: Shabnam Silverio on 12-15-2023 Monocytes (Bld) [#/Vol] 0.1 10*3/uL 0.0-0.8 [facility] Monocytes/100 WBC Auto (Bld) Ordered By: Shabnam Silverio on 12-15-2023 Monocytes/100 WBC (Bld) 2.3 % . [facility] Neutrophils Auto (Bld) [#/Vo l]Ordered By: Shabnam Silverio on 12-15-2023 Neutrophils (Bld) [#/Vol] 4.2 10*3/uL 1.8-7.7 [facility] Neutrophils/100 WBC Auto (Bl d)Ordered By: Shabnam Silverio on 12-15-2023 Neutrophils/100 WBC (Bld) 88.6 % . [facility] Nitrite Test strip Ql (U)Ord ered By: Shabnam Silverio on 12-15-2023 Nitrite Ql (U) Negative Negative [facility] No Panel InformationOrdered By: Shabnam Silverio on 12-15-2023 Estimated GFR (CKD-EPI) > 60.0 mL/Min [facility] Creatinine Clearance (Chem 139.01 [facility] Nucleated erythrocytes [Pres ence] in Blood by Automated countOrdered By: Shabnam Silverio on 12-15-2023 Nucleated RBC Auto Ql (Bld) 0.0 /100{WBC} 0-0.5 [facility] Opiates [Presence] in Urine by Screen methodOrdered By: Shabnam Silverio on 12-15-2023 Opiates Screen Ql (U) Negative Negative [facility] Phencyclidine Screen Ql (U)O rdered By: Shabnam Silverio on 12-15-2023 Phencyclidine Ql (U) Negative Negative [facility] Platelet mean volume Auto (B ld) [Entitic vol]Ordered By: Shabnam Silverio on 12-15-2023 Platelet mean volume (Bld) [Entitic vol] 8.4 fL 6.6-10.1 [facility] Platelets Auto (Bld) [#/Vol] Ordered By: Shabnam Silverio on 12-15-2023 Platelets (Bld) [#/Vol] 253 10*3/uL 150-450 [facility] Potassium [Moles/volume] in Serum or PlasmaOrdered By: Shabnam Silverio on 12-15-2023 Potassium [Moles/Vol] 4.1 mmol/L 3.5-5.1 [facility] Protein Auto test strip (U) [Mass/Vol]Ordered By: Shabnam Silverio on 12-15-2023 Protein (U) [Mass/Vol] Negative Negative [facility] Protein [Mass/volume] in Ser um or PlasmaOrdered By: Shabnam Silverio on 12-15-2023 Protein [Mass/Vol] 7.1 g/dL 6.4-8.9 [facility] RBC Auto (Bld) [#/Vol]Ordere d By: Shabnam Silverio on 12-15-2023 RBC (Bld) [#/Vol] 4.85 10*6/uL 3.90-5.60 [facility] Serum or plasma albumin/glob ulin mass ratioOrdered By: Shabnam Silverio on 12-15-2023 Albumin/Globulin [Mass ratio] 1.8 {ratio} [facility] Serum or plasma anion gap de terminationOrdered By: Shabnam Silverio on 12-15-2023 Anion gap [Moles/Vol] 16.5 mmol/L 6.0-15.0 [facility] Sodium [Moles/volume] in Ser um or PlasmaOrdered By: Shabnam Silverio on 12-15-2023 Sodium [Moles/Vol] 141 mmol/L 136-145 [facility] Specific gravity Auto test s trip (U) [Rel density]Ordered By: [facility]abnam [facility] on 12-15-2023 Specific gravity (U) [Rel density] 1.020 1.001-1.030 [facility] Urea nitrogen [Mass/volume] in Serum or PlasmaOrdered By: Shabnam Silverio on 12-15-2023 Urea nitrogen [Mass/Vol] 15 mg/dL 7-25 [facility] Urinalysison 12-15-2023 Appearance (U) Clear Normal Clear [facility] Comment on above: Order Comment: Name Collection Type:: Clean-Voided Midstream Performed By: #### U A, URDS #### [address] Bilirubin,Urine Negative Normal Negative [facility] Comment on above: Order Comment: Name Collection Type:: Clean-Voided Midstream Performed By: #### U A, URDS #### [facility] [address] [place] [address] [place] Color (U) Yellow Normal Yellow [facility] Comment on above: Order Comment: Name Collection Type:: Clean-Voided Midstream Performed By: #### U A, URDS #### [facility] [address] Glucose Ql (U) Normal Normal Normal [facility] Comment on above: Order Comment: Name Collection Type:: Clean-Voided Midstream Performed By: #### U A, URDS #### [facility] [address] [place] [id number] [place] Ketones Ql (U) Trace High Negative [facility] Comment on above: Order Comment: Name Collection Type:: Clean-Voided Midstream Performed By: #### U A, URDS #### [address] Leukocyte esterase Test strip Ql (U) Negative Normal Negative [facility] Comment on above: Order Comment: Name Collection Type:: Clean-Voided Midstream Performed By: #### U A, URDS #### [place] [address] [place] Nitrite,Urine Negative Normal Negative [facility] Comment on above: Order Comment: Name Collection Type:: Clean-Voided Midstream Performed By: #### U A, URDS #### [place] [address] [place] Occult Blood,Urine Negative Normal Negative [facility] Comment on above: Order Comment: Name Collection Type:: Clean-Voided Midstream Result Comment: PERF ORMED BY: [place] [address] PATHOLOGIST [employer] LEIGHTON JOHN M.D. Performed By: #### U A, URDS #### [place] [address] [place] pH (U) 7.0 [pH] Normal 5.0-9.0 [facility] Comment on above: Order Comment: Name Collection Type:: Clean-Voided Midstream Performed By: #### U A, URDS #### [place] [address] [place] Protein,Urine Negative Normal Negative [facility] Comment on above: Order Comment: Name Collection Type:: Clean-Voided Midstream Performed By: #### U A, URDS #### [place] [address] [place] Specificy Calcium,Urine 1.020 Normal 1.001-1.030 [facility] Comment on above: Order Comment: Name Collection Type:: Clean-Voided Midstream Performed By: #### U A, URDS #### [facility] [address] Urobilinogen,Urine Normal Normal Normal [facility] Comment on above: Order Comment: Name Collection Type:: Clean-Voided Midstream Performed By: #### U A, URDS #### [facility] [address] [place] [id number] [place] Urine clarity by refractomet ry automatedOrdered By: Shabnam Silverio on 12-15-2023 Clarity Refractometry automated (U) Clear Clear [facility] Urine glucose measurement by automated test strip (mass/volume)Ordered By: Shabnam Silverio on 12-15-2023 Glucose Auto test strip (U) [Mass/Vol] Normal mg/dL Normal [facility] Urine hemoglobin detection b y automated test stripOrdered By: Shabnam Silverio on 12-15-2023 Hemoglobin Auto test strip Ql (U) Negative Negative [facility] Urine leukocyte esterase det ection by automated test stripOrdered By: Shabnam Silverio on 12-15-2023 Leukocyte esterase Auto test strip Ql (U) Negative Negative [facility] Urobilinogen Auto test strip (U) [Mass/Vol]Ordered By: Shabnam Silverio on 12-15-2023 Urobilinogen (U) [Mass/Vol] Normal mg/dL Normal [facility] WBC Auto (Bld) [#/Vol]Ordere d By: Shabnam Silverio on 12-15-2023 WBC (Bld) [#/Vol] 4.8 10*3/uL 4.1-10.5 [facility] pH Auto test strip (U)Ordere d By: Shabnam Silverio on 12-15-2023 pH (U) 7.0 [pH] 5.0-9.0 [facility] C DIFFICILE BY PCRon 024 C. difficile toxin genes DUC+probe Ql (Stl) TOXIGENIC C DIFF Negative (qualifier value) 027 NAP1 Negative (qualifier value) Normal PRNEG [facility] Comment on above: Performed By: #### 5 4067-4 #### [facility] ([id number]) [address], [address] [place] [address] #### [id number] #### [facility] ([id number]) [address] [place] [address] [facility] ([id number]) [address], [address] [place] [address] #### [id number] #### [facility] ([id number]) [address] [place] [address] Calprotectin (Stl) [Mass/Mas s]on 12-10-2023 CALPROTECTIN STOOL See Below Normal [facility] Comment on above: Result Comment: NOTE TEST RESULT FLAG UNIT REF.RANGE --------- CALPROTECTIN, FECAL QUANTITATIVE 97.8 H ug/g <50 CALPROTECTIN, FECAL INTERP See below A Normal Borderline elevated. Re-evaluation in 4-6 weeks is recommended if clinically indicated. On March 10, 2023, [facility] implemented a new fecal calprotectin method, the [employer] Liaison Calprotectin assay. For assistance with interpretation of results in patients undergoing serial monitoring, contact Client Services at [phone] or [phone] to discuss options, preferably within 7 days of issuing this report. Interpretation: <50.0 ug/g: Normal 50.0 ug/g - 120.0 ug/g: Borderline elevated. Re-evaluation in 4-6 weeks is recommended if clinically indicated. >120.0 ug/g: Elevated Test Performed By: [facility] [employer] [address] [place] [address] Automatic Thread Winder: Chaitanya Guillaume III, M.D. [place] #[id number] Performed By: #### 5 4067-4 #### [facility] ([id number]) [address], [address] [place] [address] #### [id number] #### [facility] ([id number]) [address] [place] [address] [facility] ([id number]) [address], [address] [place] [address] #### [phone] #### [facility] ([id number]) [address] [place] [address] 71344 GI PANELon 12-10-2023 Gastrointestinal pathogens DNA and [...] SAPOVIRUS Not detected (qualifier value) Normal NDET [facility] Comment on above: Performed By: #### 5 4067-4 #### [facility] ([id number]) [address], [address] [place] [address] #### [id number] #### [facility] ([id number]) [address] [place] [address] [facility] ([id number]) [address], [address] [place] [address] #### [id number] #### [facility] ([id number]) [address] [place] [address] 29297 CBC AND AUTO DIFFon 11-28-19 24 ABSOLUTE BASOPHIL 0.0 X10E9/L Normal 0.0-0.2 [facility] Comment on above: Performed By: #### [facility], [facility] #### [facility] ([id number]) [address] [place] [address] 13318 ABSOLUTE NEUTROPHIL 8.8 X10E9/L High 1.5-6.6 [facility] Comment on above: Performed By: #### [facility], [facility] #### [facility] ([id number]) [address] [place] [address] 80153 Basophils/100 WBC (Bld) 0.3 % Normal [facility] Comment on above: Performed By: #### [facility], [facility] #### [facility] ([id number]) [address] [place] [address] 94917 Eosinophils (Bld) [#/Vol] 0.2 10*3/uL Normal 0.0-0.4 [facility] Comment on above: Performed By: #### [facility], [facility] #### [facility] ([id number]) [address] [place] [address]206 Eosinophils/100 WBC (Bld) 1.6 % Normal [facility] Comment on above: Performed By: #### [facility], 1986-[facility] #### [facility] ([id number]) [address] [place] [address] 05579 Erythrocyte distribution width (RBC) [Ratio] 13.7 % Normal 11.5-15.0 [facility] Comment on above: Performed By: #### [facility], 1986-[facility] #### [facility] ([id number]) [address] [place] [address] 22279 Hematocrit (Bld) [Volume fraction] 45.1 % Normal 39-49 [facility] Comment on above: Performed By: #### [facility], [facility] #### [facility] ([id number]) [address] [place] [address] 52704 Hemoglobin (Bld) [Mass/Vol] 15.6 g/dL Normal 13.0-17.0 [facility] Comment on above: Performed By: #### [facility], 1986-[facility] #### [facility] ([id number]) [address] [place] [address] 62030 Lymphocytes (Bld) [#/Vol] 1.4 10*3/uL Normal 1.0-3.5 [facility] Comment on above: Performed By: #### [facility], [facility] #### [facility] ([id number]) [address] [place] [address] 35421 Lymphocytes/100 WBC (Bld) 12.4 % Normal [facility] Comment on above: Performed By: #### [facility], [facility] #### [facility] ([id number]) [address] [place] [address] 13299 MCH (RBC) [Entitic mass] 29.3 pg Normal 27-34 [facility] Comment on above: Performed By: #### [facility], [facility] #### [facility] ([id number]) [address] [place] [address] 01684 MCHC (RBC) [Mass/Vol] 34.5 g/dL Normal 32-36 [facility] Comment on above: Performed By: #### [facility], [facility] #### [facility] ([id number]) [address] [place] [address] 41936 MCV (RBC) [Entitic vol] 85 fL Normal 80-100 [facility] Comment on above: Performed By: #### [facility], 1986-[facility] #### [facility] ([id number]) [address] [place] [address] 75323 Monocytes (Bld) [#/Vol] 0.9 10*3/uL Normal 0-0.9 [facility] Comment on above: Performed By: #### [facility], 1986-[facility] #### [facility] ([id number]) [address] [place] [address] 57148 Monocytes/100 WBC (Bld) 7.6 % Normal [facility] Comment on above: Performed By: #### [facility], [facility] #### [facility] ([id number]) [address] [place] [address] 26750 Neutrophils/100 WBC (Bld) 78.1 % Normal [facility] Comment on above: Performed By: #### [facility], [facility] #### [facility] ([id number]) [address] [place] [address] 52545 Platelet mean volume (Bld) [Entitic vol] 8.2 fL Normal 7-12 [facility] Comment on above: Performed By: #### [facility], [facility] #### [facility] ([id number]) [address] [place] [address] 09378 Platelets (Bld) [#/Vol] 326 10*3/uL Normal 150-450 [facility] Comment on above: Performed By: #### [facility], [facility] #### [facility] ([id number]) [address] [place] [address] 48745 RBC COUNT 5.31 X10E12/L Normal 4.10-5.70 [facility] Comment on above: Performed By: #### [facility], [facility] #### [facility] ([id number]) [address] [place] [address] 83638 WBC (Bld) [#/Vol] 11.3 10*3/uL High 4.0-11.0 [facility] Comment on above: Performed By: #### [facility], 1988-[facility] #### [facility] ([id number]) [address] [place] [address] 81463 COMPREHENSIVE METABOLIC PANE Alex 11-28-2023 Albumin [Mass/Vol] 5.0 g/dL Normal 3.2-5.3 [facility] Comment on above: Performed By: #### [facility], [facility] #### [facility] ([id number]) [address] [place] [address] 09857 ALP [Catalytic activity/Vol] 71 U/L Normal 39-130 [facility] Comment on above: Performed By: #### [facility], [facility] #### [facility] ([id number]) [address] [place] [address] 64778 ALT [Catalytic activity/Vol] 13 U/L Normal 0-40 [facility] Comment on above: Performed By: #### [facility], [facility] #### [facility] ([id number]) [address] [place] [address] 62539 Anion gap [Moles/Vol] 8 mmol/L Normal 5-15 [facility] Comment on above: Performed By: #### [facility], [facility] #### [facility] ([id number]) [address] [place] [address] 25238 AST [Catalytic activity/Vol] 19 U/L Normal 0-41 [facility] Comment on above: Performed By: #### [facility], [facility] #### [facility] ([id number]) [address] [place] [address] 03013 Bilirubin [Mass/Vol] 0.9 mg/dL Normal 0.3-1.2 [facility] Comment on above: Performed By: #### [facility], [facility]-02 #### [facility] ([id number]) [address] [place] [address] 69812 Calcium [Mass/Vol] 9.6 mg/dL Normal 8.5-10.5 [facility] Comment on above: Performed By: #### [facility], [facility] #### [facility] ([id number]) [address] [place] [address] 82292 Chloride [Moles/Vol] 101 mmol/L Normal 98-109 [facility] Comment on above: Performed By: #### [facility], [facility] #### [facility] ([id number]) [address] [place] [address] 98600 CO2 [Moles/Vol] 27 mmol/L Normal 22-32 [facility] Comment on above: Performed By: #### [facility], [facility] #### [facility] ([id number]) [address] [place] [address] 42400 Creatinine [Mass/Vol] 1.15 mg/dL Normal 0.70-1.20 [facility] Comment on above: Result Comment: METH OD TRACEABLE TO IDMS STANDARD Performed By: #### [facility], [facility] #### [facility] ([id number]) [address] [place] [address] 98779 eGFR (CKD-EPI) NON-RACE DEPENDENT >90 Normal >59 [facility] Comment on above: Result Comment: Reported eGFR is based on the CKD-EPI 2020 equation that does not use a race coefficient. Performed By: #### [facility], 1988-02 #### [facility] ([id number]) [address] [place] [address] 85483 Glucose [Mass/Vol] 100 mg/dL High 65-99 [facility] Comment on above: Performed By: #### [facility], 1988-02 #### [facility] ([id number]) [address] [place] [address] 09294 Potassium [Moles/Vol] 4.3 mmol/L Normal 3.5-5.0 [facility] Comment on above: Performed By: #### [facility], [facility] #### [facility] ([id number]) [address] [place] [address] 93841 Protein [Mass/Vol] 8.4 g/dL High 6.0-8.0 [facility] Comment on above: Performed By: #### [facility], [facility] #### [facility] ([id number]) [address] [place] [address] 71177 Sodium [Moles/Vol] 136 mmol/L Normal 134-146 [facility] Comment on above: Performed By: #### [facility], [facility] #### [facility] ([id number]) [address] [place] [address] 58569 Urea nitrogen [Mass/Vol] 21 mg/dL Normal 5-23 [facility] Comment on above: Performed By: #### [facility], [facility] #### [facility] ([id number]) [address] [place] [address] 28779 CRP [Mass/Vol]on 11-28-2023 C REACTIVE PROTEIN 0.6 mg/dL Normal 0.000-0.744 [facility] Comment on above: Performed By: #### [facility], [facility] #### [facility] ([id number]) [address] [place] [address] ABDOMEN AND PELVIS WO CON Ton [...] Stephen Varela MD on 11/28/2023 1:45 PM ICatalion MD have personally reviewed the image(s) and agree with and/or edited the report Finalized by Catalino Knapp MD on 11/28/2023 1:58 PM Normal [facility] URN MACROSCOPIC NURon 2023 BILIRUBIN ANITRA Negative Normal NEG [facility] Comment on above: Performed By: #### N UM #### [facility] ([id number]) [address] [place] [address] [place] [address] BLOOD/HGB ANITRA MODERATE Abnormal NEG [facility] Comment on above: Performed By: #### N UM #### [facility] ([id number]) [address] [place] [address], [place] [address] GLUCOSE ANITRA Negative Normal NEG [facility] Comment on above: Performed By: #### N UM #### [facility] ([id number]) [address] [place] [address] [place] [address] KETONES ANITRA Negative Normal NEG [facility] Comment on above: Performed By: #### N UM #### [facility] ([id number]) [address] [place] [address] 15410 LEUKOCYTE ESTERASE ANITRA Negative Normal NEG Pr [facility] Comment on above: Performed By: #### N UM #### [facility] ([id number]) [address] [place] [address] [place] [address] NITRITE ANITRA Negative Normal NEG [facility] Comment on above: Performed By: #### N UM #### [facility] ([id number]) [address] [place] [address] 16341 PH ANITRA 6.0 Normal 5.0-8.5 [facility] Comment on above: Performed By: #### N UM #### [facility] ([id number]) [address] [place] [address] [place] [address] PROTEIN ANITRA Negative Normal NEG [facility] Comment on above: Performed By: #### N UM #### [facility] ([id number]) [address] [place] [address] [place] [address] SPECIFIC GRAVITY ANITRA 1.025 Normal 1.003-1.035 [facility] Comment on above: Performed By: #### N UM #### [facility] ([id number]) [address] [place] [address] [place] [address] UROBILINOGEN ANITRA 0.2 eu/dL Normal <1.1 [facility] Comment on above: Performed By: #### N UM #### [facility] ([id number]) [address] [place] [address], [place] [address] XR SPINE LUMBAR 2 OR 3 VWSon 11-28-2023 XR SPINE LUMBAR 2 OR 3 VWS XR SPINE LUMBAR 2 OR 3 VWS *ADDENDUM*Upon comparison to prior CT of the abdomen and pelvis from 09/03/2007. 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 Finalized by Catalino Valentino on 11/28/2023 12:08 PM Normal [facility] XR ANKLE RT MIN 3 VIEWSon XR ANKLE RT MIN 3 VIEWS IMAGES REVIEWED: XR ANKLE RT MIN 3 VIEWS COMPARISON: 06/30/2022. CLINICAL INDICATION: Pain FINDINGS/IMPRESSION: 1. No evidence of acute osseous abnormality of the right ankle. 2. Prominent lateral ankle soft tissue swelling. Electronically authenticated by: BELLE PETER Date: 2022-08-15 20:02 Normal [facility] XR FOOT RT MIN 3 VIEWSon XR FOOT RT MIN 3 VIEWS IMAGES REVIEWED: XR FOOT RT MIN 3 VIEWS COMPARISON: None available. CLINICAL INDICATION: Injury, pain. FINDINGS/IMPRESSION: No evidence of acute osseous abnormality of the right foot. Electronically authenticated by: BELLE PETER Date: 2022-06-30 20:09 Normal [facility] ED Provider Noteon 7 HIM IP Note OR Platform Man Normal [facility] Vital Signs Date Time Vital Sign Value Performing Clinician Facility 09-21-2024 15:50-0500 Body mass index (BMI) [Ratio] 85.34 kg/m2 Harika Powers APRN-PRESS DEPARTMENT MANAGER Work Phone: [facility] 09-21-2024 15:50-0500 Body temperature 97.9 [degF] Harika Powers APRN-PRESS DEPARTMENT MANAGER Work Phone: [facility] 09-21-2024 15:50-0500 Body weight 81.47 kg Harika Powers APRN-PRESS DEPARTMENT MANAGER Work Phone: [facility] 09-21-2024 15:50-0500 Diastolic blood pressure 80 mm[Hg] Harika Powers KITCHEN DESIGNER-PRESS DEPARTMENT MANAGER Work Phone: [facility] 09-21-2024 15:50-0500 Heart rate 81 /min Harika Powers KITCHEN DESIGNER-PRESS DEPARTMENT MANAGER Work Phone: [facility] 09-21-2024 15:50-0500 SaO2% (BldA) [Mass fraction] 97 % Harika Powers KITCHEN DESIGNER-PRESS DEPARTMENT MANAGER Work Phone: [facility] 09-21-2024 15:50-0500 Systolic blood pressure 136 mm[Hg] Harika Powers KITCHEN DESIGNER-PRESS DEPARTMENT MANAGER Work Phone: [facility] 02-02-2024 10:18-0400 Diastolic blood pressure 71 mm[Hg] PHYSICIAN NO [facility] 02-02-2024 10:18-0400 Heart rate 80 /min PHYSICIAN NO [facility] 02-02-2024 10:18-0400 Respiratory rate 14 /min PHYSICIAN NO [facility] 02-02-2024 10:18-0400 SaO2% (BldA) [Mass fraction] 97 % PHYSICIAN NO [facility] 02-02-2024 10:18-0400 Systolic blood pressure 118 mm[Hg] PHYSICIAN NO [facility] 02-02-2024 08:27-0400 Body height 175.26 cm PHYSICIAN NO [facility] 02-02-2024 08:27-0400 Body weight 64 kg PHYSICIAN NO [facility] 01-15-2024 13:22-0400 Body height 175.3 cm Javier Alberts MD Work Phone: [facility] 01-15-2024 13:22-0400 Body mass index (BMI) [Ratio] 20.38 kg/m2 Javier Alberts MD Work Phone: [facility] 01-15-2024 13:22-0400 Body temperature 98.29 [degF] Javier Alberts MD Work Phone: [facility] 01-15-2024 13:22-0400 Body weight 62.6 kg Javier Alberts MD Work Phone: [facility] 01-15-2024 13:22-0400 Diastolic blood pressure 74 mm[Hg] Javier Alberts MD Work Phone: [facility] 01-15-2024 13:22-0400 Heart rate 78 /min Javier Alberts MD Work Phone: [facility] 01-15-2024 13:22-0400 SaO2% (BldA) [Mass fraction] 98 % Javier Alberts MD Work Phone: [facility] 01-15-2024 13:22-0400 Systolic blood pressure 128 mm[Hg] Javier Alberts MD Work Phone: [facility] 12-28-2023 13:16-0400 Body height 172.72 cm PHYSICIAN NO [facility] 12-28-2023 13:16-0400 Body mass index (BMI) [Ratio] 19.8 kg/m2 PHYSICIAN NO [facility] 12-28-2023 13:16-0400 Body weight 58.96 kg PHYSICIAN NO [facility] 12-28-2023 13:16-0400 Diastolic blood pressure 97 mm[Hg] PHYSICIAN NO [facility] 12-28-2023 13:16-0400 Heart rate 87 /min PHYSICIAN NO [facility] 12-28-2023 13:16-0400 Systolic blood pressure 141 mm[Hg] PHYSICIAN NO [facility] 12-15-2023 20:35-0500 Diastolic blood pressure 74 mm[Hg] PHYSICIAN NO [facility] 12-15-2023 20:35-0500 Heart rate 65 /min PHYSICIAN NO [facility] 12-15-2023 20:35-0500 Respiratory rate 17 /min PHYSICIAN NO [facility] 12-15-2023 20:35-0500 SaO2% (BldA) [Mass fraction] 98 % PHYSICIAN NO [facility] 12-15-2023 20:35-0500 Systolic blood pressure 123 mm[Hg] PHYSICIAN NO [facility] 12-15-2023 17:13-0500 Body temperature 97.7 [degF] PHYSICIAN NO [facility] 12-15-2023 16:12-0500 Body height 172.72 cm PHYSICIAN NO [facility] 12-15-2023 16:12-0500 Body weight 61.4 kg PHYSICIAN NO [facility] 12-09-2023 11:25-0500 Body height 175.3 cm Kena Crow KITCHEN DESIGNER-PRESS DEPARTMENT MANAGER Work Phone: [facility] 12-09-2023 11:25-0500 Body mass index (BMI) [Ratio] 20 kg/m2 Kena Crow KITCHEN DESIGNER-PRESS DEPARTMENT MANAGER Work Phone: [facility] 12-09-2023 11:25-0500 Body weight 61.42 kg Kena Crow KITCHEN DESIGNER-PRESS DEPARTMENT MANAGER Work Phone: [facility] 12-09-2023 11:25-0500 Diastolic blood pressure 77 mm[Hg] Kena Crow KITCHEN DESIGNER-PRESS DEPARTMENT MANAGER Work Phone: [facility] 12-09-2023 11:25-0500 Heart rate 78 /min Kena Crow KITCHEN DESIGNER-PRESS DEPARTMENT MANAGER Work Phone: [facility] 12-09-2023 11:25-0500 Systolic blood pressure 121 mm[Hg] Kena Crow KITCHEN DESIGNER-PRESS DEPARTMENT MANAGER Work Phone: [facility] Encounters Encounter Date Encounter Type Care Provider Facility Start: 10-14-2024 Evaluation and management of inpatient TANNER GARCIAAlbin [facility] Start: 10-13-2024 End: 10-13-2024 Emergency department patient visit TERESITARI [facility] Start: 10-13-2024 End: 10-13-2024 ambulatory [facility] Start: 10-13-2024 End: 10-14-2024 Evaluation and [facility] Start: 10-12-2024 End: 10-12-2024 Emergency department patient visit [facility] Start: 09-26-2024 End: 09-26-2024 Telephone encounter [facility] Start: 09-25-2024 End: 09-25-2024 Emergency department patient visit RUPERTO Torres [facility] Start: 09-23-2024 End: 09-26-2024 Orders Only Harika Powers KITCHEN DESIGNER-PRESS DEPARTMENT MANAGER Work Phone: [facility] Comment on above: Colitis (Primary Dx) ; Right lower quadrant abdominal pain Start: 09-22-2024 End: 09-22-2024 Orders Only Harika Powers KITCHEN DESIGNER-PRESS DEPARTMENT MANAGER Work Phone: [facility] Comment on above: Colitis (Primary Dx) ; Right lower quadrant abdominal pain Start: 09-21-2024 End: 09-21-2024 Office outpatient visit 25 minutes Harika Powers KITCHEN DESIGNER-PRESS DEPARTMENT MANAGER Work Phone: [facility] Comment on above: Right lower quadrant abdominal pain (Primary Dx); Colitis; Follow-up exam Start: 05-04-2024 End: 05-04-2024 ambulatory [facility] Start: 03-24-2024 End: 03-24-2024 ambulatory [facility] Start: 02-02-2024 End: 02-02-2024 ambulatory Imad Asaad Facility:[facility] Start: 02-02-2024 Non-patient / Non-visit PHYSICIAN BRIEN [facility] Work Phone: Start: 02-02-2024 End: 02-02-2024 Admission to same day surgery center PHYSICIAN BRIEN [facility] Work Phone: Start: 02-02-2024 End: 02-02-2024 ambulatory PHYSICIAN BRIEN [facility] Work Phone: Start: 01-15-2024 End: 01-15-2024 ambulatory RUPERTO Torres [facility] Start: 01-15-2024 End: 01-15-2024 Office outpatient new 45 minutes Javier Alberts MD [facility] Comment on above: Degenerative disc di sease, lumbar (Primary Dx); Encounter to establish care; Degenerative disc disease, thoracic; Colitis Start: 12-28-2023 End: 12-28-2023 Patient encounter procedure PHYSICIAN NO [facility] Work Phone: Start: 12-15-2023 End: 12-15-2023 Emergency department patient visit Shabnam Silverio Facility:[facility] Start: 12-15-2023 End: 12-15-2023 Emergency department patient visit PHYSICIAN NO [facility] Work Phone: Start: 12-10-2023 End: 12-10-2023 ambulatory [facility] Start: 12-09-2023 End: 12-09-2023 Office outpatient new 30 minutes [facility] Nancy Melvin KITCHEN DESIGNER-PRESS DEPARTMENT MANAGER Work Phone: [facility] Comment on above: Colitis (Primary Dx) ; Family history of ulcerative colitis; Diarrhea, unspecified type; Encounter to establish care Start: 12-09-2023 End: 12-09-2023 ambulatory [facility] Start: 11-28-2023 End: 11-29-2023 Emergency department patient visit [facility] Start: 11-28-2023 End: 11-29-2023 Emergency department patient visit [facility] Start: 11-28-2023 End: 11-28-2023 Emergency department patient visit NO PCP NO PCP [facility] Start: 11-17-2023 End: 11-17-2023 Emergency department patient visit NO PCP NO PCP [facility] Start: 11-14-2023 End: 11-14-2023 Emergency department patient visit NO PCP NO PCP [facility] Start: 09-02-2022 End: 09-02-2022 ambulatory Lauren Mcgillarney Other [facility] Other Start: 09-02-2022 Office outpatient visit 15 minutes Lauren Greene [facility] Start: 08-21-2022 End: 08-21-2022 ambulatory Lauren Mcgillarney Other [facility] Other Start: 08-21-2022 Office outpatient ne w 45 minutes Lauren Greene [facility] Start: 08-15-2022 End: 08-15-[address] OTTO PAZ Facility:[facility] Start: 06-30-2022 End: 06-30-[address] ROMAN HERMAN Facility:[facility] Start: 04-29-2017 End: 04-29-2017 Emergency department patient visit [facility] Procedures Date Procedure Procedure Detail Performing Clinician Start: 03-24-2024 Follow-up visit Follow-up JAVIER ALBERTS Start: 02-02-2024 Colonoscopy PHYSICIAN NO FAMILY Start: 01-15-2024 Adult depression scr eening assessment Javier Alberts MD Work Phone: Start: 12-15-2023 Computed tomography of abdomen and pelvis with contrast PHYSICIAN NO FAMILY Start: 03-25-2021 Adult depression scr eening assessment Kena Crow KITCHEN DESIGNER-PRESS DEPARTMENT MANAGER Work Phone: Plan of Treatment Date Care Activity Detail Author Start: 09-25-2025 Adult BMI Screening Adult BMI Screen ing [facility] Start: 09-25-2025 Tobacco Screening Tobacco Screening [facility] Start: 09-22-2025 Tobacco Screening Tobacco Screening [facility] Start: 09-21-2025 Adult BMI Screening Adult BMI Screen ing [facility] Start: 09-21-2025 Tobacco Screening Tobacco Screening [facility] Start: 09-08-2025 DTaP,Tdap and Td Vac cines (7 - Td or Tdap) DTaP,Tdap and Td Vaccines (7 - Td or Tdap) [facility] Start: 01-14-2025 Adult BMI Screening Adult BMI Screen ing [facility] Start: 01-14-2025 Depression Screening Depression Scre ening [facility] Start: 01-14-2025 Tobacco Screening Tobacco Screening [facility] Start: 12-09-2024 Adult BMI Screening Adult BMI Screen ing [facility] Start: 12-09-2024 Tobacco Screening Tobacco Screening [facility] Start: 09-23-2024 End: 09-23-2024 Patient encounter procedure 09/23/2024 3:30 PM EST Appointment [facility] [address] [place] [address] [facility] Start: 09-21-2024 End: 09-21-2025 CT Abdomen and Pelvis W contrast IV CT abdomen and pelvis with contrast Imaging STAT Right lower quadrant abdominal pain Expected: 09/21/2024, Expires: 09/21/2025 [facility] Comment on above: Expected: 09/21/2024 , Expires: 09/21/2025 Start: 06-19-2024 Influenza vaccination Influenza Vacc ine [facility] Start: 02-02-2024 End: 02-02-2024 [facility] Start: 01-15-2024 End: 01-15-2024 Patient encounter procedure 01/15/2024 1:00 PM EDT Office Visit [facility] [address] [place] [address] [phone] Javier Alberts MD [address] [place] [address] [facility] Start: 06-19-2023 Influenza vaccination Influenza Vacc ine [facility] Start: 03-25-2022 Depression Screening Depression Scre ening [facility] Start: 2020 Adult BMI Follow Up Plan Adult BMI Follow Up Plan [facility] End: 12-09-2024 C difficile by PCR C difficile by PCR Lab Routine Diarrhea, unspecified type 1 Occurrences starting 12/09/2023 until 12/09/2024 [employer] Work Phone: Comment on above: 1 Occurrences starti ng 12/09/2023 until 12/09/2024 End: 12-09-2024 Calprotectin stool Calprotectin stool Lab Routine Diarrhea, unspecified type 1 Occurrences starting 12/09/2023 until 12/09/2024 [employer] Comment on above: 1 Occurrences starti ng 12/09/2023 until 12/09/2024 End: 09-21-2025 Calprotectin, F Calprotectin, F Lab Routine Right lower quadrant abdominal pain 1 Occurrences starting 09/21/2024 until 09/21/2025 [employer] Work Phone: Comment on above: 1 Occurrences starti ng 09/21/2024 until 09/21/2025 Endomysial antibody IgA level [facility] End: 12-09-2024 GI Panel(stool pathogen panel) GI Panel(stool pathogen panel) Lab Routine Diarrhea, unspecified type 1 Occurrences starting 12/09/2023 until 12/09/2024 [employer] Comment on above: 1 Occurrences starti ng 12/09/2023 until 12/09/2024 End: 09-21-2025 GI Panel(stool pathogen panel) GI Panel(stool pathogen panel) Lab Routine Right lower quadrant abdominal pain 1 Occurrences starting 09/21/2024 until 09/21/2025 [employer] Comment on above: 1 Occurrences starti ng 09/21/2024 until 09/21/2025 Gliadin peptide IgA Ab [Units/volume] in Serum [facility] Gliadin peptide IgG Ab [Units/volume] in Serum [facility] HIV 1+2 Ab+HIV1 p24 Ag [Presence] in Serum or Plasma by Immunoassay [facility] IgA [Mass/volume] in Serum or Plasma [facility] End: 09-21-2025 Occult blood x 1, stool Occult blood x 1, stool Lab Routine Right lower quadrant abdominal pain 1 Occurrences starting 09/21/2024 until 09/21/2025 [employer] Comment on above: 1 Occurrences starti ng 09/21/2024 until 09/21/2025 Patient Education Abdominal pain [facility] Work Phone: Patient referral [facility] Work Phone: Tissue transglutamin ase IgA Ab [Units/volume] in Serum [facility] Tissue transglutamin ase IgG Ab [Units/volume] in Serum [facility] End: 09-21-2025 Urinalysis Urinalysis Lab Routine Right lower quadrant abdominal pain 1 Occurrences starting 09/21/2024 until 09/21/2025 [facility] [employer] [facility] Comment on above: 1 Occurrences starti ng 09/21/2024 until 09/21/2025 [facility] Immunizations Immunization Date Immunization Notes Care Provider Moris waters 11-30-2015 influenza virus vaccine, unspecified formulation Kena Crow KITCHEN DESIGNER-PRESS DEPARTMENT MANAGER Work Phone: [facility] Payers Date Payer Category Payer Medicaid [employer] [id number] 2003-Present [phone] [address] [place] [id number] 2003 Medicaid [place] [employer] [id number] 2002 Unknown [id number] 2002 Unknown [id number] [id number] 2002 Unknown [id number] 2.16.840.1.495695.3.579.2.1285 2002 Unknown [id number] 2.16.840.1.364155.3.579.2.1285 2002 Unknown [id number] 2.16.840.1.792346.3.579.2.Community Health2002 Unknown [id number] 2.16.840.1.930660.3.579.2.Community Health2002 Unknown [id number] 2.16.840.1.923548.3.579.2.1285 2002 Unknown [id number] 2.16.840.1.523172.3.579.2.Community [facility]2002 Unknown [id number] 2.16.840.1.271744.3.579.2.1285 2002 Unknown [id number] 2.16.840.1.831993.3.579.2.1285 2002 Unknown [id number] 2.16.840.1.415514.3.579.2.1285 2002 Unknown [id number] 2.16.840.1.600989.3.579.2.1285 2002 Unknown [id number] 2.16.840.1.390488.3.579.2.1285 2002 Unknown [id number] 2.16.840.1.766642.3.579.2.Community Health2002 Unknown [id number] 2.16.840.1.224087.3.579.2.1285 2002 Unknown [id number] 2.16.840.1.812175.3.579.2.1285 2002 Unknown [id number] 2.16.840.1.270383.3.579.2.1285 2002 Unknown [id number] 2.16.840.1.562331.3.579.2.1286 2002 Unknown [id number] 2.16.840.1.490792.3.579.2.1286 2002 Unknown [id number] [id number] 1959 Unknown [id number] Social History Date Type Detail Facility Start: 09-17-2020 End: 10-31-2020 Sex Assigned At [facility] Start: 11-14-2023 End: 02-02-2024 Tobacco smoking status NHIS Never smoked tobacco [facility] Start: 11-14-2023 Tobacco use and exposure Smoke less tobacco non-user [facility] Start: 12-09-2023 End: 09-25-2024 Alcohol intake Ex-drinker (finding) [facility] Start: 10-31-2020 End: 12-09-2023 Alcohol intake [facility] Frequency of Alcohol Consumption Never [facility] Start: 12-09-2023 Alcohol Comment socially [facility] Start: 2002 [facility] Start: [facility] Sex Assigned At Male [facility] How hard is it for y ou to pay for the very basics like food, housing, medical care, and heating Not very hard [facility] Start: 05-22-2015 Sex Male (finding) [facility] Goals Date Patient Goal Desired Activity /State Clinical Notes 08-21-2022 to 09-26-2024 Telephone Encounter - Lucy Murillo [facility] - 09/26/2024 2:46 PM ESTTelephone Encounter - Lucy Murillo [facility] - 09/26/2024 2:46 PM ESTTelephone Encounter - Lucy Murillo [facility] - 09/26/2024 2:46 PM EST Note Date & Type Note Facility 09-26-2024 Miscellaneous Notes Formattin g of this note might be different from the original. ----- Message from TOREY Smith sent at 09/25/2024 12:52 PM EST ----- Study was degraded by motion artifact. However, it appears there is bowel wall thickening, which is consistent with infectious colitis. How are symptoms doing? If symptoms are not improving, I will need to send in alternative antibiotic. Attempted to call patient with results. No answer, left voicemail. documented in this encounter [facility] 09-26-2024 Miscellaneous Notes Formattin g of this note might be different from the original. ----- Message from TOREY Smith sent at 09/25/2024 12:50 PM EST ----- Fecal calprotectin is elevated, this is concerning for irritable bowel disease. Please ensure to follow up with specialist. Attempted to call patient with results. No answer, left voicemail. documented in this encounter [facility] 09-26-2024 Telephone encount er Note ----- Message from TOREY Smith sent at 09/25/2024 12:52 PM EST ----- Study was degraded by motion artifact. However, it appears there is bowel wall thickening, which is consistent with infectious colitis. How are symptoms doing? If symptoms are not improving, I will need to send in alternative antibiotic. [facility] 09-26-2024 Telephone encount er Note Attempted to call patient with results. No answer, left voicemail. [facility] 09-26-2024 Telephone encount er Note ----- Message from TOREY Smith sent at 09/25/2024 12:50 PM EST ----- Fecal calprotectin is elevated, this is concerning for irritable bowel disease. Please ensure to follow up with specialist. [facility] 09-26-2024 Telephone encount er Note Attempted to call patient with results. No answer, left voicemail. [facility] 09-23-2024 Miscellaneous Notes Formattin g of this note might be different from the original. ----- Message from TOREY Smith sent at 09/23/2024 10:50 AM EST ----- No infection in urine. No blood in stool, negative pathogen panel. Still waiting calprotectin. Called patient and informed him. He is very upset and stated he will not survive waiting to see speciality in Nov. He has CT scan that he will complete today, hopefully this will give us some answers, he can go to ED if symptoms persist or worsen. Tried to call patient but no answer so I left a voicemail. documented in this encounter [facility] 09-23-2024 Telephone encount er Note ----- Message from TOREY Smith sent at 09/23/2024 10:50 AM EST ----- No infection in urine. No blood in stool, negative pathogen panel. Still waiting calprotectin. [employer] 09-23-2024 Telephone encount er Note Called patient and informed him. He is very upset and stated he will not survive waiting to see speciality in Nov. [employer] 09-23-2024 Telephone encount er Note He has CT scan that he will complete today, hopefully this will give us some answers, he can go to ED if symptoms persist or worsen. [employer] Work Phone: 09-23-2024 Telephone encount er Note Tried to call patient but no answer so I left a voicemail. [employer] 09-23-2024 Miscellaneous Notes Formattin g of this note might be different from the original. Patient called stating that he is wanting to see it there is a different referral or order that can be placed. Dr. Cisneros's office can not get him in until November. Please advise? I sent new referral if you can provide them with info. They can call, but unfortunately specialists can be a long wait, so I am not sure if they would be able to get in sooner. Called and informed patient of new referral. Verbalized understanding about how long it could be to get in. Gulshan expressed that he was unaware he was going there for a basic appointment with them. He was under the impression that PCP was faxing over an order for endoscopy. Gulshan wanted me to verify with PCP about an endoscopy order and which provider would order this if needed. Please advise? I cannot place order for endoscopy, only specialist can complete this, I stated to patient, I think he needs EGD, but only specialist can complete and order this as the specialist would be the one to complete the testing. Patient was called and left voicemail to call office back. documented in this encounter [employer] 09-23-2024 Telephone encount er Note Patient called stating that he is wanting to see it there is a different referral or order that can be placed. Dr. Cisneros's office can not get him in until November. Please advise? [employer] 09-23-2024 Telephone encount er Note I sent new referral if you can provide them with info. They can call, but unfortunately specialists can be a long wait, so I am not sure if they would be able to get in sooner. [employer] Work Phone: 09-23-2024 Telephone encount er Note Called and informed patient of new referral. Verbalized understanding about how long it could be to get in. Gulshan expressed that he was unaware he was going there for a basic appointment with them. He was under the impression that PCP was faxing over an order for endoscopy. Gulshan wanted me to verify with PCP about an endoscopy order and which provider would order this if needed. Please advise? [facility] 09-23-2024 Telephone encount er Note I cannot place order for endoscopy, only specialist can complete this, I stated to patient, I think he needs EGD, but only specialist can complete and order this as the specialist would be the one to complete the testing. [facility] 09-23-2024 Telephone encount er Note Patient was called and left voicemail to call office back. [facility] 09-22-2024 Miscellaneous Notes Formattin g of this note might be different from the original. Patient called and he tried calling gastro to schedule with them but they said they need a new referral before they can schedule him again. He stated he is feeling a little better but still in a lot of pain. Please advise? Referral placed back to DR. Cisneros's office Called patient and informed him it was placed and faxed. documented in this encounter [facility] 09-22-2024 Telephone encount er Note Patient called and he tried calling gastro to schedule with them but they said they need a new referral before they can schedule him again. He stated he is feeling a little better but still in a lot of pain. Please advise? [facility] 09-22-2024 Telephone encount er Note Referral placed back to DR. Cisneros's office [facility] 09-22-2024 Telephone encount er Note Called patient and informed him it was placed and faxed. [facility] 09-21-2024 History of Presen t illness Narrative Subjective Patient ID: Gulshan Mcpherson is a 24 y.o. male. MEMO Gaffney presents to the office for ER follow up, accompanied by mom today. He went to [place] ER on 09/19/24 accompanied by father with complaint of abdominal pain for several days. He reports the pain was mostly on the right side of the abdomen with some radiation to the back. CT abdomen/pelvis showed empty colon with slightly edematous wall thickening, possible mild colitis? Bladder, kidneys negative. WBC 11.6, CMP, lipase, CRP negative. He was given toradol, but not helpful. zofran, augmentin, dicyclomine, minimally effective. He reports he had similar episodes in November and was seen in ER and CT abdomen and pelvis was performed on 11/28/2023 and was significant for mild wall thickening of ascending colon. WBCs were mildly elevated at 11.3 in November 2023, CMP and CRP and lipase were normal. He was discharged on Cipro and Flagyl in November 2023. He states he was feeling better so he stopped taking the antibiotics. He reports the abdominal came back and he went to [place] ER again in December 08, [address] scan was repeated and he was told that there was inflammation. However, upon review of CT from 12/08/2023, heterogenous appearance of both kidneys, correlate UA to ensure no underlying small cysts or pyelonephritis. I do not see UA was completed. He was discharged at that time on hyoscyamine. He followed up with general surgery 12/09/2023, and referral was placed to gastroenterology, Dr. Cramer, he saw [facility] and saw Dr. Cisneros 12/28/2023. Calprotectin stool was ordered 12/10/2023 by General surgery and was borderline elevated, repeat testing recommended in 4-6 weeks. GI panel and c-diff were negative. It looks like FU with Dr. Cisneros, he ordered Fecal Calprotectin and ordered colonoscopy. Colonoscopy completed 02/02/2024, negative. TSH WNL, CRP WNL, celiac testing negative. But I do not see results from fecal calprotectin. [facility] ER 12/15/[address] showed possible bladder wall thickening, but consider under distention vs cystitis. UA negative. There is a family history of ulcerative colitis in his maternal grandfather. His mother also has acute episodes of colitis. Gulshan reports he continues with severe abdominal pain and reports it actually feels like it is worsening since the ER visit. He reports the pain is a constant 9 out of 10 and is a constant sharp pain. He feels that his abdomen is going to explode internally . He feels like it is very swollen internally or blocked. He reports he has not been able to have a BM in 2 days. He admits he is not eating much, he did have some chicken noddle soup yesterday and lunch meat this morning with his medications. He admits he did take some miralax this morning, but it has not worked. He reports he is able to pass some gas, but feels very bloated. He reports last BM was 3 days ago, he had 2 formed BM and the last one was diarrhea. He denies urinary symptoms, but does not feel like he can go often. He denies fever. He has overall generalized body aches. He is not able to sleep due to pain. He denies any bloody stools. No nausea, no vomiting. He states he has not had abdominal pain in months and that is why he has not followed up with GI. The following portions of the patient's history were reviewed and updated as appropriate: allergies, current medications, past family history, past medical history, past social history, past surgical history, problem list, and medication reconciliation was completed including current medication and post discharge medication. Review of Systems Constitutional: Positive for fatigue. Negative for fever and unexpected weight change. HENT: Negative. Respiratory: Negative for cough, chest tightness, shortness of breath and wheezing. Cardiovascular: Negative for chest pain, palpitations and leg swelling. Gastrointestinal: Positive for abdominal pain, nausea and vomiting. Negative for blood in stool. Genitourinary: Negative for dysuria. Musculoskeletal: Positive for myalgias. Objective Physical Exam Vitals and nursing note reviewed. Constitutional: General: He is not in acute distress. Appearance: Normal appearance. He is not ill-appearing. HENT: Head: Normocephalic and atraumatic. Eyes: Pupils: Pupils are equal, round, and reactive to light. Neck: Vascular: No carotid bruit. Cardiovascular: Rate and Rhythm: Normal rate and regular rhythm. Pulses: Normal pulses. Heart sounds: Normal heart sounds. No murmur heard. Pulmonary: Effort: Pulmonary effort is normal. No respiratory distress. Breath sounds: Normal breath sounds. No stridor. No wheezing, rhonchi or rales. Abdominal: General: Bowel sounds are normal. There is distension. Palpations: There is no mass. Tenderness: There is abdominal tenderness (generalized tenderness to right upper and lower quadrant. he had some tenderness to left lower quadrant as well). There is right CVA tenderness and guarding. There is no left CVA tenderness or rebound. Hernia: No hernia is present. Musculoskeletal: Right lower leg: No edema. Left lower leg: No edema. Lymphadenopathy: Cervical: No cervical adenopathy. Skin: Capillary Refill: Capillary refill takes less than 2 seconds. Findings: No erythema or rash. Neurological: General: No focal deficit present. Mental Status: He is alert. Psychiatric: Mood and Affect: Mood normal. Behavior: Behavior normal. Assessment/Plan ER note reviewed. Colonoscopy report reviewed. Previous ER notes reviewed. Do not take miralax. Ensure to finish antibiotic. Continue with zofran and bentyl PRN. Short course of pain medicaiton sent, discussed side effects. Encouraged clear liquid diet. Encouraged to ambulate, walk, or move to help gas pass. I will check stool for infection, blood, and I would like to recheck fecal calprotectin, I do not see repeat as recommended in the past by GI. I recommend he follow up with GI. I do want to order STAT imaging to ensure no mass, or blockage causing increased pain. Please do not hesitate to call or go to ED if symptoms worsen. Gulshan was seen today for follow-up. Diagnoses and all orders for this visit: Right lower quadrant abdominal pain - Calprotectin, F; Future - Urinalysis; Future - GI Panel(stool pathogen panel); Future - CT abdomen and pelvis with contrast; Future - Occult blood x 1, stool; Future - HYDROcodone-acetaminophen (NORCO) 5-325 mg per tablet; Take 1 tablet by mouth every 6 (six) hours as needed for pain for up to 4 days. Max Daily Amount: 4 tablets Colitis Follow-up exam TOREY Smith 09/22/24 0936 documented in this encounter [facility] 02-02-2024 Procedure note [facility] 01-15-2024 History of Presen t illness Narrative Images from the original note were not included. [address] [place] [id number] Patient: Gulshan Mcpherson Date of : 2000 Encounter Date: 01/15/2024 SUBJECTIVE: HISTORY OF PRESENT ILLNESS: Chief Complaint: Chief Complaint Patient presents with [facility] Patient ID: Gulshan is a 23 y.o. male presenting to [facility] after his previous PCP retired. Patient has concerns for colitis and is due for a colonoscopy on February 01. He follows-up with a G.I. Patient also has concerns for back pain- [...] labs/imaging. ASSESSMENT/PLAN: Gulshan was seen today for [facility]. Diagnoses and all orders for this visit: Encounter to [facility] - [facility] Physicians Family Medicine - [place], [place] Barbie Jolley, MS3 Family Medicine Physician [facility] Medicine / [facility] 01/15/24 This note was completed with voice recognition software. The document was reviewed for errors however some may still be present. Please do not hesitate to contact/Epic msg the author to verify any questions/concerns. Images from the original note were not included. [address] [place] [phone] Patient: Gulshan Mcpherson Date of : 2000 Encounter Date: 01/15/2024 SUBJECTIVE: HISTORY OF PRESENT ILLNESS: Chief Complaint: Chief Complaint Patient presents with [facility] Patient ID: Gulshan is a 23 y.o. male presenting to [facility] after his previous PCP retired. Here today [...] congenital arthritic back pains. He follows-up with nancy Good. Patient also has concerns for back pain- [...] disease, lumbar Encounter to establish care - [facility] Family Medicine - [place], [place] Degenerative disc disease, thoracic Colitis 23-year-old [...] regions. Atypical for patient of this age. JAVIER ALBERTS MD Family Medicine Physician [facility] / [facility] 01/16/24 This note was completed with voice recognition software. The document was reviewed for errors however some may still be present. Please do not hesitate to contact/Epic [facility] the author to verify any questions/concerns. documented in this encounter [facility] [employer] [facility] 12-09-2023 History of Presen t illness Narrative Images from the original note were not included. Chief Complaint: Colitis History of Present Illness Gulshan Mcpherson is a 23 y.o. male who presents to the office after being seen in the [facility] ED on 3 separate occasions for right [...] worse again so he presented to the [place] ED 2 days ago. He states they [...] patient/family/caregiver Referring and communicating with other health health and social care teacher Colitis [K52.9] TOREY BAILEY [facility] Physicians General Surgery [place] This note was created with the assistance of a speech recognition program. While intending to generate a timely document that accurately reflects the content of the visit, no guarantee can be provided that every grammatical or spelling mistake has been or will be identified or corrected. Thank you for your understanding. TOREY Bailey 12/09/23 1307 documented in this encounter [facility] 09-02-2022 Evaluation note Encounter Date Diagnosis Assessment Notes Aug, Acute right ankle pain (ICD-10 - M25.571) Aug, Sprain of right ankle, unspecified ligament, initial encounter (ICD-10 - S93.401A) Patient instructed to start working on motion out of the CAM walker boot. He may also transition into a regular shoe. He may return to work tomorrow. [employer] Other 11-03-2022 Evaluation note* Encounter Date Diagnosis [...] f/u with the patient in 2 weeks. [employer] Other Evaluation note* Diagnosis Colitis- Primary Other and unspecified noninfectious gastroenteritis and colitis Family history of ulcerative colitis Diarrhea, unspecified type Encounter to establish care documented in this encounter [facility]* Diagnosis Degenerative disc disease, lumbar- Primary Encounter to establish care Degenerative disc disease, thoracic Colitis Other and unspecified noninfectious gastroenteritis and colitis documented in this encounter [facility] SystemEvaluation note* Diagnosis Onset Date Resolution Status Colitis acute Right lower quadrant abdominal pain none[facility] Work Phone: Evaluation note* Diagnosis Right lower quadrant abdominal pain- Primary Colitis Other and unspecified noninfectious gastroenteritis and colitis Follow-up exam Unspecified follow-up examination documented [facility] this [facility]* Diagnosis Colitis- Primary Other and unspecified noninfectious gastroenteritis and colitis Right lower quadrant abdominal pain documented in this encounter [facility] [employer] SystemHistory general Narrative - Reported* Type Description Date Medical History allergies Surgical History skin graft [employer] Hospital Discharge instructions Additional Instructions DISCHARGE [...] NOT operate machinery such as power tools, [employer] mowers, snow blowers, sewing machines, etc. for [...] -Follow-up in office as scheduled -Office number [phone]. [facility] Work Phone: InstructionsNot on filedocumented in this encounter [facility] [employer] SystemInstructionsNot on filedocumented in this encounter [facility] SystemInstructions* Attachments The following attachments cannot be sent through Care Everywhere. * Clear Liquid Diet (Namibian) documented in this encounterPro[facility]ica Health SystemInstructionsNot on file documented in this encounter[facility]Medica [employer] SystemInstructionsNot on file documented in this encounterProProm[facility] SystemReason for referral (narrative)* Consultation (Routine) - Pending Review Specialty Diagnoses / Procedures Referred By Omaira drummond Referred To Contact Family Medicine Diagnoses Encounter to establish care Kena Crow, KITCHEN DESIGNER-PRESS DEPARTMENT MANAGER [address] [place] [address] Javier Alberts MD [address] [place] [address] Referral ID Status Reason Start Date Expiration Date Visits Requested Visits Authorized [id number] Pending Review Specialty Services Required 12/09/2023 12/08/2024 1 1 * Consultation (Routine) - Pending Review Specialty Diagnoses / Procedures Referred By Contjaylan t Referred To Contact Gastroenterology Diagnoses Colitis Family history of ulcerative colitis Kena Crow APRN-CNP [address] [place] [address] Rene Cramer MD [address] [phone] Referral ID Status Reason Start Date Expiration Date Visits Requested Visits Authorized [id number] Pending Review Specialty Services Required 12/09/2023 12/08/2024 [address] [facility] System Summary Purpose Family History No Family History [...] and content) DATE CREATED AUTHOR 04/14/2018 [facility] DATE CREATED AUTHOR AUTHOR'S ORGANIZ ATION 08/18/2022 [facility] DATE CREATED AUTHOR AUTHOR'S ORGANIZ ATION 02/05/2024 [facility] DATE CREATED AUTHOR AUTHOR'S ORGANIZ ATION 05/08/2024 [facility] DATE CREATED AUTHOR AUTHOR'S ORGANIZ ATION 10/14/2024 [facility] DATE CREATED AUTHOR AUTHOR'S ORGANIZ ATION 10/18/2024 [facility] REASON FOR VISIT (unrecogniz ed section and content) Reason Comments Ulcerative Colitis Colitis, H ER 11/28 Reason Comments Establish Care Specialty Diagnoses / Procedures Referred By Contjaylan t Referred To Contact Family Medicine Diagnoses Encounter to establish care Kena Crow APRN-PRESS DEPARTMENT MANAGER [address] [place] [address] Javier Alberts MD [address] [facility] [place] [address] Referral ID Status Reason Start Date Expiration Date Visits Requested Visits Authorized [id number] Pending Review Specialty Services Required 12/09/2023 12/08/2024 1 1 Reason Comments Follow-up ER follow up abdomin al pain Care Teams (unrecognized sec tion and content) Riverboat Captain Relationship Specialty Start Date End Date No Pcp, [place] [address] PCP - General Family Medicine 11/14/23 Riverboat Captain Relationship Specialty Start Date End Date Javier Alberts MD [address] [facility] [place], [place] [id number] PCP - General Internal Medicine 01/15/24 Team [...] Provider Act patricia Start: February 02, 2024 Riverboat Captain Relationship Specialty Start Date End Date Javier Alberts MD [address] [place] [address] PCP - General Internal Medicine 01/15/24 Riverboat Captain Relationship Specialty Start Date End Date Javier Alberts MD [address], [place] [address] PCP - General Internal Medicine 01/15/24 Riverboat Captain Relationship Specialty Start Date End Date Javier Alberts MD [address], [place] [address] PCP - General Internal Medicine 01/15/24 Riverboat Captain Relationship Specialty Start Date End Date Javier Alberts MD [address], [place] [address] PCP - General Internal Medicine 01/15/24 Riverboat Captain Relationship Specialty Start Date End Date Javier Alberts MD [address], [place] [address] PCP - General Internal Medicine 01/15/24 FOR RECORDS PERTAINING TO PATIENTS WHO ARE [...] BE BASED ON THE PRIMARY CLINICAL RECORDS. [facility]. provides no warranty or guarantee of the accuracy or completeness of information in this document.
[2024-10-19 13:13] VITALS: BP 143/100; PULSE 113; TEMP 36.8; O2SAT 98; BMI 24.4
--- NOTE | 2024-10-19 13:21 | XR_ITS ---
The [address] [address] Patient Name: LULÚ REAL MRN: [id number] date: 2000 Sex: M Assigned Patient Location: ER Current Patient Location: ER Accession/Order Number: [id number] Exam Date: 10/19/2024 13:40 Report Date: 10/19/2024 14:19 At the request of: LIZA CEBALLOS Procedure: XR chest 1V EXAM: XR chest 1V HISTORY: pneumonia COMPARISON: None. TECHNIQUE: Single frontal view of the chest performed. FINDINGS: The trachea is midline. The heart size is within normal limits. There is mild peribronchial cuffing at both hilar regions which can be associated with a bronchitis. There is no consolidation, pleural effusion or pulmonary vascular congestion. There is no pneumothorax. The osseous structures are unremarkable. XR/XR chest 1V IMPRESSION: Mild peribronchial cuffing at both hilar regions which can be associated with a bronchitis. There is no consolidation. Electronically authenticated by: JESUSITA MARROQUIN Date: 10/19/2024 14:19
--- NOTE | 2024-10-19 13:29 | ECG_ITS ---
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
--- NOTE | 2024-10-19 14:28 | ED_ITS ---
<Statement entered by Titi Gonzalez MD - 10/25/24 13:23> This documentation has been reviewed and approved. Patient to leave at 7AM with EMS. HPI - Medical Clearance General Chief complaint: Medical Clearance Stated complaint: MANIC, COVID POSITIVE Time Seen by Provider: 10/19/24 14:11 Source: patient Mode of arrival: walk-in Limitations: no limitations History of Present Illness HPI Narrative: Patient is a 24-year-old male with a history of bipolar disorder who presents to the emergency department with his mother and sister for evaluation of worsening anxiety and adarsh. Patient was admitted to [facility] after he was taken by ambulance to [facility] last week, he required physical restraints while he was in the emergency department and developed rhabdomyolysis. He was admitted to [facility] and evaluated by psychiatry, started on Latuda. Sister provides the majority of the history, she states he was discharged yesterday still manic and agitated. They are not able to manage his symptoms at home and they are requesting that he be placed again. He apparently tested positive for COVID on 10/14/2024. He reports some cough but no other significant upper respiratory symptoms. Patient denies suicidal or homicidal ideation, he has difficulty focusing during the history. Related Information Home Medications ?Medication ?Instructions ?Recorded ?Confirmed dextroamphetamine-amphetamine 15 7.5 mg PO BID 12/07/23 10/19/24 mg tablet amoxicillin 875 mg-potassium 1 tab PO Q12H 09/24/24 09/24/24 clavulanate 125 mg tablet dextroamphetamine-amphetamine 15 7.5 mg PO BID 09/24/24 09/24/24 mg tablet dicyclomine 20 mg tablet 20 mg PO .q6 09/24/24 10/19/24 hydrocodone 5 mg-acetaminophen 325 1 tab PO Q6H PRN pain 09/24/24 09/24/24 mg tablet ketorolac 10 mg tablet 10 mg PO Q8H 09/24/24 09/24/24 ondansetron 4 mg disintegrating 4 mg PO Q6H PRN nausea and vomiting 09/24/24 09/24/24 tablet diphenhydramine HCl 25 mg capsule 50 mg PO Q8H PRN allergy symptoms 10/19/24 10/19/24 (Aler-Cap) lurasidone 40 mg tablet 40 mg PO DAILY 10/19/24 10/19/24 Previous Rx's ?Medication ?Instructions ?Recorded ondansetron 4 mg disintegrating 4 mg PO Q6H PRN nausea and 12/08/23 tablet vomiting #20 tabs amoxicillin 875 mg-potassium 1 tab PO BID #14 tabs 09/19/24 clavulanate 125 mg tablet dicyclomine 20 mg tablet 20 mg PO QID PRN abdominal pain 09/19/24 #12 tabs ondansetron 4 mg disintegrating 4 mg PO Q6H PRN nausea and 09/19/24 tablet vomiting #12 tabs Allergies Allergy/AdvReac Type Severity Reaction Status Date / Time No Known Drug Allergies Allergy Verified 10/19/24 13:19 Review of Systems ROS Constitutional Denies: fever or chills Ears, nose, mouth, and throat Denies: throat pain or nasal congestion Cardiovascular Denies: chest pain Respiratory Reports: cough; Denies: shortness of breath Gastrointestinal Denies: nausea, vomiting or diarrhea Integumentary/Breast Denies: rash Neurological Denies: numbness in extremities or weakness in extremities Hematologic/Lymphatic Denies: easy bruising or easy bleeding PFSH PFSH Social History Smoking status: Current every day smoker Little interest or pleasure in doing things: not at all Feeling down, depressed, or hopeless: not at all Exam Narrative Exam Narrative: Gen.: Awake, alert, in no distress Head: Normocephalic, atraumatic ENT: Moist mucous membranes Respiratory: No respiratory distress, lungs clear bilaterally Cardio: Regular rate and rhythm Extremities: Moves extremities equally Psych: Normal mood and affect Neuro: No focal neuro deficit Skin: Warm, dry, intact Constitutional Vital Signs, click to edit/add: Last Vital Signs Temp 98.2 F 10/19/24 13:13 Pulse 96 H 10/19/24 19:04 Resp 18 10/19/24 19:04 BP 132/102 H 10/19/24 19:04 Pulse Ox 100 10/19/24 19:04 O2 Del Method Room Air 10/19/24 13:13 Course Vital Signs Vital signs: Vital Signs Temperature 98.2 F 10/19/24 13:13 Pulse Rate 113 H 10/19/24 13:13 Respiratory Rate 22 H 10/19/24 13:13 Blood Pressure 143/100 H 10/19/24 13:13 Pulse Oximetry 98 10/19/24 13:13 Oxygen Delivery Method Room Air 10/19/24 13:13 Temperature 98.2 F 10/19/24 13:13 Pulse Rate 96 H 10/19/24 19:04 Respiratory Rate 18 10/19/24 19:04 Blood Pressure 132/102 H 10/19/24 19:04 Pulse Oximetry 100 10/19/24 19:04 Oxygen Delivery Method Room Air 10/19/24 13:13 MDM - Medical Clearance MDM Narrative Medical decision making narrative: On arrival to the emergency department, patient did not have a room that he could be placed in due to high ER volume, he was evaluated in the conference room with his mother and sister at the bedside. He was given intramuscular Ativan to help with his agitation. He remained relatively calm and cooperative with staff throughout his stay in the emergency department. Laboratory studies were obtained, showing the patient has mild hypokalemia although he has had that in the past as well as slight elevation of his LFTs consistent with COVID infection. His CK is 900 with elevation of myoglobin and CK-MB as well. CK has improved significantly from last week when he was hospitalized with rhabdomyolysis per family. He received IV fluids in the ER as well. He is hemodynamically stable with unremarkable vital signs. He did have multiple episodes where he became more agitated and was remedicated with intramuscular Geodon, additional IV Ativan and IV Benadryl. Patient is admitted to [facility] in [place] to Dr. Fernandez, however he cannot be transported until tomorrow morning. Case is turned over to attending physician for continued treatment and transfer in the morning. Critical care time 45 minutes for multiple conversations with family, counseling services and multiple events where the patient required remedication. SUPERVISED APC VISIT, PHYSICIAN ATTESTATION: Based on the medical record the care appears appropriate. ? Medical Records Attestation: I reviewed the patient's medical records. Lab Data Attestation: I reviewed the patient's lab results. Labs: Lab Results 10/19/24 10/19/24 Range/Units 14:28 14:41 WBC 5.3 (4.0-11.0) 10^3/uL RBC 5.56 (4.70-6.10) 10^6/uL Hgb 14.9 (14.0-18.0) g/dL Hct 45.4 (42.0-54.0) % MCV 81.7 (80.0-94.0) fL MCH 26.8 (25.9-34.0) pg MCHC 32.8 (29.9-35.2) g/dL RDW 13.1 (11.0-15.0) % Plt Count 357 (150-450) 10^3/uL MPV 9.5 (9.5-13.5) fL Neut % (Auto) 62.5 (43.0-75.0) % Lymph % (Auto) 22.7 (20.5-60.0) % Wake % (Auto) 9.1 (1.7-12.0) % Eos % (Auto) 4.7 (0.9-7.0) % Baso % (Auto) 0.6 (0.2-2.0) % Neut # (Auto) 3.3 (1.4-6.5) 10^3/uL Lymph # (Auto) 1.2 (1.2-3.8) 10^3/uL Wake # (Auto) 0.5 (0.3-0.8) 10^3/uL Eos # (Auto) 0.3 (0.0-0.7) 10^3/uL Baso # (Auto) 0.0 (0.0-0.1) 10^3/uL Abs Immat Gran (auto) 0.02 (0.00-0.03) 10^3/uL Imm/Tot Granulo (auto) 0.4 (0.0-0.5) % Sodium 140 (136-145) mmol/L Potassium 3.2 L (3.5-5.1) mmol/L Chloride 101 (98-107) mmol/L Carbon Dioxide 26.2 (21.0-32.0) mmol/L Anion Gap 16.0 BUN 7.0 (7.0-18.0) mg/dL Creatinine 1.06 (0.70-1.30) mg/dL Est GFR ( Amer) >60 (>=60 mL/min/1.73m^2) Est GFR (Non-Af Amer) >60 (>=60 mL/min/1.73m^2) BUN/Creatinine Ratio 6.6 Glucose 98 (74-106) mg/dL Calcium 9.8 (8.5-10.1) mg/dL Total Bilirubin 0.6 (0.2-1.0) mg/dL AST 63 H (15-37) U/L ALT 85 H (16-63) U/L Alkaline Phosphatase 91 (46-116) U/L Total Creatine Kinase 993 H* (39-308) U/L CK-MB (CK-2) 34.97 H* (<=3.60) ng/mL Myoglobin 298 H* (16-96) ng/mL Troponin I High Sens 4.5 (4.0-76.1) pg/mL Total Protein 8.2 (6.4-8.2) g/dL Albumin 4.3 (3.4-5.0) g/dL Globulin 3.9 g/dL Albumin/Globulin Ratio 1.1 Salicylates <2.8 (<=19.9) mg/dL Urine Opiates Screen Negative (NEGATIVE) Ur Buprenorphine Scrn Negative (NEGATIVE) Ur Oxycodone Screen Negative (NEGATIVE) Urine Methadone Screen Negative (NEGATIVE) Acetaminophen <2.0 L (10.0-30.0) ug/mL Ur Barbiturates Screen Negative (NEGATIVE) U Tricyclic Antidepress Negative (NEGATIVE) Ur Phencyclidine Scrn Negative (NEGATIVE) Ur Amphetamines Screen Negative (NEGATIVE) U Methamphetamines Scrn Negative (NEGATIVE) U Benzodiazepines Scrn Positive A (NEGATIVE) Urine Cocaine Screen Negative (NEGATIVE) U Cannabinoids Screen Positive A (NEGATIVE) Ethanol Quant <3 mg/dL Imaging Data Chest x-ray: Attestation: I have reviewed the pertinent imaging results. Radiologist's impression: ITS Impressions Chest X-Ray 10/19/24 13:21 IMPRESSION: Mild peribronchial cuffing at both hilar regions which can be associated with a bronchitis. There is no consolidation. Electronically authenticated by: JESUSITA MARROQUIN Date: 10/19/2024 14:19 ECG Data Attestation: I personally reviewed and interpreted this ECG as follows: (Normal sinus rhythm, no acute ST elevation or ectopy) Discharge Plan Discharge Chief Complaint: Medical Clearance Clinical Impression: Manic episode, Agitation Patient Disposition: [facility] Time of Disposition Decision: 21:32 Discharge location: [facility] Mode of Transportation: Private Vehicle Prescriptions / Home Meds: No Action amoxicillin-pot clavulanate 875-125 mg tablet 1 tab PO Q12H dextroamphetamine-amphetamine 15 mg tablet 7.5 mg PO BID dicyclomine 20 mg tablet 20 mg PO .q6 hydrocodone-acetaminophen 5-325 mg tablet 1 tab PO Q6H PRN (Reason: pain) ketorolac 10 mg tablet 10 mg PO Q8H ondansetron 4 mg tablet,disintegrating 4 mg PO Q6H PRN (Reason: nausea and vomiting) lurasidone 40 mg tablet 40 mg PO DAILY diphenhydramine HCl [Aler-Cap] 25 mg capsule 50 mg PO Q8H PRN (Reason: allergy symptoms) Rx Instructions: Last dose this am dextroamphetamine-amphetamine 15 mg tablet 7.5 mg PO BID ondansetron 4 mg tablet,disintegrating 4 mg PO Q6H PRN (Reason: nausea and vomiting) Qty: 20 0RF dicyclomine 20 mg tablet 20 mg PO QID PRN (Reason: abdominal pain) Qty: 12 0RF ondansetron 4 mg tablet,disintegrating 4 mg PO Q6H PRN (Reason: nausea and vomiting) Qty: 12 0RF amoxicillin-pot clavulanate 875-125 mg tablet 1 tab PO BID Qty: 14 0RF Print Language: Yakut Referrals: Luis Johnston ND [Primary Care Provider] - 1 week
[2024-10-19] MEDS: LORAZEPAM 2 MG/ML VIAL IM (14:43)
[2024-10-19 14:57] LABS: Basophils Percent Auto 0.6 % (0.2-2.0); Eosinophils Absolute Auto 0.3 10^3/uL (0.0-0.7); Eosinophils Percent Auto 4.7 % (0.9-7.0); Hematocrit 45.4 % (42.0-54.0); Hemoglobin 14.9 g/dL (14.0-18.0); Immature Granulocytes Abs Auto 0.02 10^3/uL (0.00-0.03); Immature Granulocytes Pct Auto 0.4 % (0.0-0.5); Lymphocytes Absolute Auto 1.2 10^3/uL (1.2-3.8); Lymphocytes Percent Auto 22.7 % (20.5-60.0); Mean Corpuscular HGB Conc 32.8 g/dL (29.9-35.2); Mean Corpuscular Hemoglobin 26.8 pg (25.9-34.0); Mean Corpuscular Volume 81.7 fL (80.0-94.0); Mean Platelet Volume 9.5 fL (9.5-13.5); Monocytes Absolute Auto 0.5 10^3/uL (0.3-0.8); Monocytes Percent Auto 9.1 % (1.7-12.0); Neutrophils Absolute Auto 3.3 10^3/uL (1.4-6.5); Neutrophils Percent Auto 62.5 % (43.0-75.0); Platelet Count 357 10^3/uL (150-450); Red Blood Count 5.56 10^6/uL (4.70-6.10); Red Cell Distribution Width 13.1 % (11.0-15.0); White Blood Count 5.3 10^3/uL (4.0-11.0)
[2024-10-19] MEDS: 0.9 % SODIUM CHLORIDE 1,000 ML 1000 ML IV (14:57)
[2024-10-19 15:18] LABS: Alanine Aminotransferase 85 U/L (16-63); Albumin Globulin Ratio 1.1; Albumin Level 4.3 g/dL (3.4-5.0); Alkaline Phosphatase 91 U/L (46-116); Aspartate Amino Transferase 63 U/L (15-37); BUN Creatinine Ratio 6.6; Bilirubin Total 0.6 mg/dL (0.2-1.0); Calcium 9.8 mg/dL (8.5-10.1); Carbon Dioxide 26.2 mmol/L (21.0-32.0); Chloride 101 mmol/L (98-107); Estimated GFR (African America >60 (>=60 mL/min/1.73m^2); Estimated GFR (Non-African Ame >60 (>=60 mL/min/1.73m^2); Globulin 3.9 g/dL; Glucose 98 mg/dL (74-106); Potassium 3.2 mmol/L (3.5-5.1); Sodium 140 mmol/L (136-145); Total Protein 8.2 g/dL (6.4-8.2)
[2024-10-19 15:22] LABS: Acetaminophen <2.0 ug/mL (10.0-30.0); Ethanol <3 mg/dL
[2024-10-19 15:45] LABS: Salicylate <2.8 mg/dL (<=19.9)
[2024-10-19 15:48] LABS: Amphetamine Screen Urine NEGATIVE (NEGATIVE); Barbiturates Screen Urine NEGATIVE (NEGATIVE); Benzodiazepines Screen Urine POSITIVE (NEGATIVE); Buprenorphine Screen Urine NEGATIVE (NEGATIVE); Cannabinoid Screen Urine POSITIVE (NEGATIVE); Cocaine Screen Urine NEGATIVE (NEGATIVE); Methadone Screen Urine NEGATIVE (NEGATIVE); Methamphetamines Screen Urine NEGATIVE (NEGATIVE); Opiate Screen Urine NEGATIVE (NEGATIVE); Oxycodone Screen Urine NEGATIVE (NEGATIVE); Phencyclidine Screen Urine NEGATIVE (NEGATIVE); Tricyclic Antidepressant Urine NEGATIVE (NEGATIVE)
[2024-10-19 15:56] LABS: Troponin I High Sensitivity 4.5 pg/mL (4.0-76.1)
[2024-10-19 16:05] LABS: Creatine Kinase 993 U/L (39-308); Creatine Kinase MB 34.97 ng/mL (<=3.60); Myoglobin 298 ng/mL (16-96)
--- NOTE | 2024-10-19 18:50 | PC.NURSE ---
this RN arrives, patient is calm and cooperative. denies needs, sitting in bed with sister at bedside. previous nurse states patient was given IM ativan to help with anxiety while waiting. patient medicated in conference room. [facility] already called. patient recently dx with radha on and hx of recent rhabdomyolysis from exertion and fighting being in restraints for long periods of time.
[2024-10-19 19:04] VITALS: BP 132/102; PULSE 96; O2SAT 100
--- NOTE | 2024-10-19 19:11 | PC.NURSE ---
i walked into this patient, to find this patient sitting upright on the bed awake and alert eating. this patient's sister and mother at bedside. I did introduced myself to this patient and his family. i informed them that [facility] is calling around for placement for this patient at this time.once a place mentis found we will inform you of this location. this patient voices no concerns and shos no signs of distress
--- NOTE | 2024-10-19 19:44 | PC.NURSE ---
this patient getting agitated and saying he wants to go home to se his who lives in [place], this patient's mother and sister talking to patient trying to keep him calm
[2024-10-19] MEDS: ZIPRASIDONE MESYLATE 20 MG VIAL IM (19:55)
[2024-10-19] MEDS: LORAZEPAM 2 MG/ML VIAL 1 MG IV ×2 (19:55→21:58)
[2024-10-19] MEDS: DIPHENHYDRAMINE HCL 50 MG/ML VIAL 25 MG IV ×2 (19:55→21:58)
--- NOTE | 2024-10-19 20:55 | PC.NURSE ---
per this patient's mother this is much better now and he got up and walked to the bathroom. this patient is back in bed with rails x2 up now. per Sheila from [facility] will go to [facility] in [place],to the Balance Unit and Dr Fernandez accepting but patient can not arrive here no sooner than 07:00 am tomorrow(10-20-2024) morning nurse report number [phone] ext [phone] she is calling [facility] to if they can transport him to [facility]
[2024-10-19 21:33] VITALS: BP 126/80; PULSE 80; O2SAT 97
[2024-10-19] MEDS: WATER FOR INJECTION, STERILE 20 ML VIAL INJ (21:35)
--- NOTE | 2024-10-19 22:09 | PC.NURSE ---
this patient's family ready to leave, so i called laundry housekeeper to informed of this patient been heavily medication and he is still getting out of bed. I told her that it would be a good idea to have a sitter on him. I do not want him getting out of bed and falling. move him up front, I do not have anybody, it me for right now. she then said wait let me check if i have someone pesticide control inspector
--- NOTE | 2024-10-19 22:31 | PC.NURSE ---
per housekeeping attendant this patient was moved to room number 4, closed to the nursing station this patient's mother and sister are leaving and they both aware of this patient location once he leaves here in the morning
--- NOTE | 2024-10-19 23:53 | PC.NURSE ---
this patient remains sleeping but occasion moving his feet
--- NOTE | 2024-10-20 03:40 | PC.NURSE ---
this patient continues to sleep but now lying on his left side
--- NOTE | 2024-10-20 05:14 | PC.NURSE ---
this patient wakes up and asked for another warm blanket aN
--- NOTE | 2024-10-20 05:15 | PC.NURSE ---
this patient wakes up and asked for a warm blanket and then said I am going to go back to sleep. patient rolls onto his back and falls back to sleep
[2024-10-20] MEDS: POTASSIUM CHLORIDE 10 MEQ ER TABLET 40 MEQ PO (07:27)
[2024-10-20 07:40] VITALS: BP 167/97; PULSE 125; O2SAT 99
== END 2024-10-20 07:42 ==
PROVIDERS: Physician Assistant; Emergency Provider Emergency Medicine; PCP Student in an Organized Health Care Education/Training Program
DX: F30.9 Manic episode, unspecified (principal); F41.9 Anxiety disorder, unspecified; F17.200 Nicotine dependence, unspecified, uncomplicated; R45.1 Restlessness and agitation; U07.1 COVID-19
CPT/HCPCS: 36415; 71045; 80053; 80179; 80307; 80320; 80329; 82550; 82553; 83874; 84484; 85025; 87811; 93005; 96372; 96374; 96375; 96376; 99285; J1200; J2060; J3486